=== PATIENT | male | born 1950 | race Caucasian/White ===

== ENCOUNTER 2016-12-01 21:07 | Emergency (ER) | payer MEDICARE ==
[~2016-12-01] VITALS: Ht 172.7 cm; Wt 71.7 kg
[~2016-12-01 21:07] MED LIST: AMITRIPTYLINE25 MG PO; B12,B-12,B 12500 MC1 PO; BACTROBAN OINT0.9 GM T; CARISOPRODOL350 M1 PO; CIPRO500 MG PO; CIPROFLOXACIN500 MG PO; COLACE100 MG PO; COUMADIN0.5 MG PO; COUMADIN1 M1 PO; COUMADIN3 M1 PO; COUMADIN4 M2 PO; COUMADIN5 M2 PO; Coumadin3 MG PO; Coumadin5 MG PO; DELTASONE10 MG PO; DITROPAN XL5 MG PO; DITROPAN5 MG PO; DOXYCYCLINE MO100 M1 PO; DOXYCYCLINE100 MG PO; DULCOLAX10 M1 RC; DUONEB 3 MG/3 ML3 M1 INH; DURAGESIC25 MCG/HR TD; ELAVIL25 MG PO; FLEET ADULT ENEM1 EA R; FLOMAX0.4 MG PO; HYDROCODONE BIT1 T11 PO; HYDROCODONE BIT1 T20 PO; IBU800 MG PO; LEVAQUIN500 M2 PO; LEVAQUIN750 M1 PO; LEVAQUIN750 MG PO; LOPRESSOR25 MG PO; LORCET 10/650 61 TA1 PO; MEGESTROL AC40 MG/ML PO; METICORTEN1 MG PO; METOPROLOL SUCC25 M2 PO; MOM30 M1 PO; MOTRIN800 MG PO; MUCINEX ER600 MG PO; NATURAL FOLIC0.4 MG PO; NATURE'S BLEND F1 MG OGT; NEURONTIN300 MG PO; NICODERM14 MG/24 H TD; NICOTINE T14 MG/24 H TD; NORCO 10-325 T1 EACH PO; NYSTATIN100000 U/M PO; OXYBUTYNIN5 MG PO; PERCOCET 325 MG1 TA2 PO; PERCOCET 325 MG1 TA5 PO; PREDNISONE10 MG PO; PYRIDIUM200 MG PO; SOMA350 MG PO; SSD1% T; SYMBICORT1 AE1 INH; TOPROL XL50 M1 PO; TYLENOL325 M1 PO; VALIUM PO; VALIUM10 MG PO; VALIUM5 MG PO; VENTOLIN0.09 MG/AC IH; VICODIN 5/500 505 MG PO; VICODIN ES 7501 TAB PO; XARE20MG PO; ZITHROMAX1 GM/PACKE PO; ZITHROMAX250 MG PO; ZOFRAN ODT4 MG SL; [UNRECOGNIZED DRUG - OTHER] PO
[2016-12-01 21:18] VITALS: BP 113/79
[2016-12-01] MEDS ORDERED: NOVAPLUS V0.09 MG/Ac INH (21:21)
[2016-12-01] MEDS ORDERED: ACETAMINOPHEN &1 TA1 PO (21:22)
[2016-12-01 21:58] LABS: BILIRUBIN NEGATIVE (NEGATIVE); BLOOD 3+ (NEGATIVE); CLARITY CLEAR (CLEAR); COLOR YELLOW (YELLOW); GLUCOSE NEGATIVE (NEGATIVE); KETONE NEGATIVE (NEGATIVE); LEUKO ESTERASE NEGATIVE (NEGATIVE); NITRITE NEGATIVE (NEGATIVE); PROTEIN TRACE (NEGATIVE); SPECIFIC GRAVITY <= 1.005 (1.005-1.030); UROBILINOGEN 0.2 E.U./dl (0.2-1.0)
[2016-12-01 22:08] LABS: BACTERIA TRACE; RBC TNTC rbc/hpf (0-2); URINE REFLEX COMMENT YES (NO)
[2016-12-01 22:12] LABS: BASO # 0.1 10*3/uL (0.0-0.1); BASO % 0.9 % (0.0-1.0); EOS # 0.4 10*3/uL (0.0-0.4); EOS % 4.7 % (1.0-4.0); HEMATOCRIT 39.3 % (42.0-52.0); HEMOGLOBIN 12.1 g/dl (14.0-18.0); LYMPH # 1.6 10*3/uL (1.3-4.4); LYMPH % 21.9 % (27.0-41.0); MEAN CELL VOLUME 95.6 fl (80.0-94.0); MEAN CORPUSCULAR HGB 29.4 pg (27.0-31.0); MEAN CORPUSCULAR HGB CONC 30.8 g/dl (33.0-37.0); MEAN PLATELET VOLUME 11.9 fl (9.6-12.3); MONO # 0.8 10*3/uL (0.1-1.0); MONO % 10.9 % (3.0-9.0); NEUT # 4.6 10*3/uL (2.3-7.9); NEUT % 61.5 % (47.0-73.0); PLATELET COUNT AUTOMATED 207 10*3/uL (130-400); RED BLOOD COUNT 4.11 10*6/uL (4.50-5.90); RED CELL DISTRI WIDTH 14.2 % (0-14.5); WHITE BLOOD COUNT 7.5 10*3/uL (4.8-10.8)
[2016-12-01 22:21] LABS: PROTHROMBIN TIME 46.9 SECONDS (9.0-12.4)
== END 2016-12-01 22:58 | disposition home or self-care (01) ==
LOC: ED 21:07
PROVIDERS: Emergency Medicine Emergency Medical Services
DX: R31.9 Hematuria, unspecified (principal); D68.8 Other specified coagulation defects; J44.9 Chronic obstructive pulmonary disease, unspecified; F17.200 Nicotine dependence, unspecified, uncomplicated; Z79.02 Long term (current) use of antithrombotics/antiplatelets; Z88.6 Allergy status to analgesic agent; Z79.899 Other long term (current) drug therapy; Z86.718 Personal history of other venous thrombosis and embolism; Z87.891 Personal history of nicotine dependence

== ENCOUNTER 2017-02-25 12:17 | Emergency (ER) | payer MEDICARE ==
[~2017-02-25] VITALS: Ht 172.7 cm; Wt 70.3 kg
[~2017-02-25 12:17] MED LIST changes: +ACETAMINOPHEN &1 TA1 PO; +NOVAPLUS V0.09 MG/Ac INH
[2017-02-25 12:21] VITALS: BP 134/73
[2017-02-25 13:00] LABS: BILIRUBIN NEGATIVE (NEGATIVE); BLOOD 1+ (NEGATIVE); CLARITY CLEAR (CLEAR); COLOR YELLOW (YELLOW); GLUCOSE NEGATIVE (NEGATIVE); KETONE NEGATIVE (NEGATIVE); LEUKO ESTERASE NEGATIVE (NEGATIVE); NITRITE NEGATIVE (NEGATIVE); PH 6.5 (5.0-9.0); SPECIFIC GRAVITY <= 1.005 (1.005-1.030)
[2017-02-25 13:06] LABS: BASO # 0.1 10*3/uL (0.0-0.1); BASO % 0.4 % (0.0-1.0); EOS # 0.1 10*3/uL (0.0-0.4); EOS % 1.2 % (1.0-4.0); HEMATOCRIT 38.5 % (42.0-52.0); HEMOGLOBIN 11.7 g/dl (14.0-18.0); LYMPH # 0.7 10*3/uL (1.3-4.4); LYMPH % 6.4 % (27.0-41.0); MEAN CORPUSCULAR HGB 30.1 pg (27.0-31.0); MEAN CORPUSCULAR HGB CONC 30.4 g/dl (33.0-37.0); MONO # 0.5 10*3/uL (0.1-1.0); MONO % 4.6 % (3.0-9.0); NEUT # 10.1 10*3/uL (2.3-7.9); NEUT % 87.1 % (47.0-73.0); PLATELET COUNT AUTOMATED 215 10*3/uL (130-400); RED BLOOD COUNT 3.89 10*6/uL (4.50-5.90); RED CELL DISTRI WIDTH 12.8 % (0-14.5); WHITE BLOOD COUNT 11.6 10*3/uL (4.8-10.8)
[2017-02-25 13:14] LABS: BACTERIA 1+; HYALINE CAST 20-30
[2017-02-25 13:20] LABS: ALBUMIN 2.9 gm/dl (3.1-4.5); ALKALINE PHOSPHATASE 138 U/L (45-117); BUN 9 mg/dl (7-24); CHLORIDE 95 mmol/L (98-107); CREATININE 0.61 mg/dL (0.70-1.30); POTASSIUM 3.8 mmol/L (3.5-5.1); SGOT/AST 15 IU/L (3-35); SGPT/ALT 14 U/L (12-78); SODIUM 138 mmol/L (136-145)
[2017-02-25] MEDS ORDERED: PREDNISONE20 M1 PO (14:30)
[2017-02-25] MEDS ORDERED: VIBRAMYCIN100 MG PO (14:30)
== END 2017-02-25 15:09 | disposition home or self-care (01) ==
LOC: ED 12:17
PROVIDERS: Emergency Medicine
DX: J44.1 Chronic obstructive pulmonary disease with (acute) exacerbation (principal); F17.200 Nicotine dependence, unspecified, uncomplicated; G89.29 Other chronic pain; Z86.718 Personal history of other venous thrombosis and embolism; Z99.81 Dependence on supplemental oxygen; Z87.01 Personal history of pneumonia (recurrent); Z98.890 Other specified postprocedural states; Z79.899 Other long term (current) drug therapy; Z79.01 Long term (current) use of anticoagulants; Z88.5 Allergy status to narcotic agent

== ENCOUNTER 2017-03-29 13:45 | Emergency (ER) | payer MEDICARE ==
[~2017-03-29] VITALS: Ht 172.7 cm; Wt 70.3 kg
[~2017-03-29 13:45] MED LIST changes: +PREDNISONE20 M1 PO; +VIBRAMYCIN100 MG PO
[2017-03-29 14:21] VITALS: BP 121/70
[2017-03-29] MEDS ORDERED: PREDNISONE20 M1 PO (14:51)
== END 2017-03-29 15:12 | disposition home or self-care (01) ==
LOC: ED 13:45
DX: L30.9 Dermatitis, unspecified (principal); Z87.891 Personal history of nicotine dependence; Z98.890 Other specified postprocedural states; Z79.01 Long term (current) use of anticoagulants; Z79.899 Other long term (current) drug therapy; Z88.5 Allergy status to narcotic agent; Z99.81 Dependence on supplemental oxygen

== ENCOUNTER 2017-04-06 19:00 | Inpatient (IN) | payer MEDICARE ==
[~2017-04-06] VITALS: Ht 172.7 cm; Wt 65.4 kg
--- NOTE | ~2017-04-06 | PR ---
[place], [place] PROGRESS NOTE NAME: LUAN PLATA [facility] #: [id number] UNIT #: [id number] ROOM: 410 DOCTOR: DOROTHY JENKINS MD,BABAR BIRTHDATE: [birth year] DOS: 04/08/2017 SUBJECTIVE: The patient was complaining of some shortness of breath today. He has been noted with cough with occasional sputum expectoration. There were no symptoms of chest pain. He has not been noted symptoms of hemoptysis. He has been using the oxygen supplementation nasal cannula. OBJECTIVE: VITAL SIGNS: For the patient which has been recorded. The patient shows the temperature noted normal, respirations 18, heart rate of 108-69, blood pressure 126/64-190/71. Pulse oxygen saturation recorded on 5 liter nasal cannula this morning was 91%. Previous noted 50% oxygen 97% saturation. HEENT: Examination shows head was atraumatic. Eyes nonicterus. NECK: Supple. CARDIOVASCULAR: S1, S2 audible. LUNGS: The patient was noted generally diminished breath sounds were noted, which has been noted in worsening as compared with the admission. Scattered expiratory wheezing was present. There were no crackles. ABDOMEN: Soft, nontender. EXTREMITIES: The patient was noted without any edema. LABORATORY DATA: The blood culture which are noted in the showed no bacterial growth. The PT/INR were noted 2.2, which is therapeutic. CMP this morning, glucose 157, BUN and creatinine were normal. CO2 33. CBC does count 21.8, hemoglobin 10.3, hematocrit 32.5, platelet count 164,000. IMPRESSION: 1. The patient with acute on chronic hypercapnic hypoxic respiratory failure with the increased requirement of the oxygen use. The patient has been started BiPAP last night as well for the medical management of current progressive acute respiratory failure. 2. Leukocytosis, steroid effect and rule out any superimposed infection. 3. The patient with overall debility was noted at present time. 4. History of common variable hypogammaglobulinemia. PLAN OF MANAGEMENT: The BiPAP setting will be adjusted to get the maximum ventilatory support. Arterial blood gas intermittently. Other supportive plan of therapy and care plan. Continue corticosteroids and the antibiotics. Further treatment changes. The patient will be made based on the progression of the illness. Change in the BiPAP has been made with a setting of 16/10. Close monitoring respiratory status will be continued. Additional treatment changes will be done in the treatment based on progression of the illness. Also get a chest x-ray of the patient to exclude any superimposed acute lung process because of leukocytosis. [place], [place] PROGRESS NOTE NAME: LUAN PLATA UNIT #: [id number] ROOM: [facility] DOCTOR: BABAR ALBA MD BIRTHDATE: [birth year] BABAR DE LA CRUZ MD CM:PNTRANS [id number] BABAR JENKINS MD 04/08/17 1432 interface
--- NOTE | ~2017-04-06 | CON ---
[place], [place] REPORT OF CONSULTATION NAME: LUAN PLATA UNIT #: [id number] ROOM: 410 DOCTOR: DOROTHY JENKINS MD,BABAR BIRTHDATE: [birth year] DOS: 04/07/2017 REASON FOR CONSULTATION: To assess the patient for increased respiratory symptoms as well as acute on chronic respiratory failure. CONSULTATION REQUESTED BY: Hospitalist services. HISTORY OF PRESENT ILLNESS: A 66-year-old male patient, very well known to me with history of end-stage COPD, chronic hypoxic respiratory failure. The patient has been brought to the hospital upon insistence of the patient's . The patient stated that he was not feeling sick, but the wanted him to come to the hospital. He has been noted with increased sleepiness, which has been noted for the past couple of days. The patient was sleeping most of the time as per spouse. He was also noted with decrease usual activities of daily living as well. The patient was noted with oxygen desaturation, which has been noted with difficulty, bringing oxygen saturation up to 92% with usual oxygen supplementation. The patient has been noted comfortably resting on the bed. REVIEW OF SYSTEMS: CONSTITUTIONAL: He does have some fatigue, but no symptoms of fever or chills. EYES: Denies any burning, discharge or redness, photophobia. CARDIOVASCULAR: Denies anginal pain, edema or pain of the lower extremity. GASTROINTESTINAL: Dysphagia, abnormal weight loss, nausea, vomiting, diarrhea, hematemesis, melena, or hematochezia. SKIN: Denies any lesions or rashes, chronic intermittent bruising of skin noted, which is unchanged. GENITOURINARY: Dysuria, suprapubic pain, or hematuria. MUSCULOSKELETAL: No acute joint pain, redness, or tenderness. CENTRAL NERVOUS SYSTEM: Dizziness, headache, diplopia, syncopal episodes. Remaining systems were reviewed with the patient, noted all negative. PAST MEDICAL HISTORY: 1. The patient known with history of advanced COPD/centrilobular emphysema. 2. History of generalized anxiety disorder. 3. Chronic hypercapnia. 4. Chronic hypoxic respiratory failure 4 liter of oxygen use. 5. Stable mediastinal lymphadenopathy. 6. Past history of epistaxis. 7. History of nephrolithiasis. 8. Chronic back pain. 9. Common variable hypogammaglobulinemia. 10. Pseudohemoptysis history. 11. Osteoarthritis. 12. Asbestos-related lung disease. 13. Chronic anticoagulation with history of deep venous thrombosis, lower extremities. 14. 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 [place], [place] REPORT OF CONSULTATION NAME: LUAN PLATA UNIT #: [id number] ROOM: 410 DOCTOR: DOROTHY JENKINS MD,BABAR BIRTHDATE: [birth year] PAST SURGICAL HISTORY: 1. Patient was known with history of right MediPort insertion. 2. Left chest tube insertion into the lung, which I removed. The patient after pneumothorax was attempted MediPort placement. 3. Therapeutic bronchoscopies. 4. Lithotripsy, ureteral calculus. 5. Past multiple broken bone and surgical intervention. 6. Abdominal aortic aneurysm repair with endovascular graft. SOCIAL HISTORY: The patient is and lives at home. Denies alcohol use or illicit drug use. Tobacco use noted since teenager, pack of cigarettes per day. Tobacco discontinued 03/05/2016. There was no history of occupation-related pulmonary exposure. FAMILY HISTORY: Noted unremarkable. MEDICATIONS: Currently administered medication were noted use of folic acid, vitamin D, amitriptyline, oxybutynin, metoprolol succinate, ibuprofen, Solu-Medrol 60 mg q.8 hours, Neurontin, Dulera, Coumadin, DuoNeb, IV immunoglobulins monthly basis last dose was given to the patient on 03/22/2017. Diazepam. Lorazepam rather temazepam p.r.n. and Levaquin 500 mg IV daily. DRUG ALLERGIES: THE PATIENT WAS NOTED ALLERGY TO CODEINE. PHYSICAL EXAMINATION: GENERAL: A 66-year-old male who has been comfortable, resting in the bed at this time without any distress. The patient's height recorded by the nursing staff 5 feet 8 inches, weight of 144 pounds, BMI 21.9. VITAL SIGNS: Normal temperature, respirations 18-20, heart rate 52-119, blood pressure 114/71-124/75. The pulse oxygen saturation on 6 liters canula 93% saturation, 50% Venturi mask 97% saturation. HEENT: No acute change. NECK: Supple. CARDIOVASCULAR: S1, S2 audible. LUNGS: Noted at this time. Moderate reduction in the breath sounds bilaterally. Scattered wheezing, no crackles. ABDOMEN: Soft, nontender, bowel sounds present. EXTREMITIES: The patient was noted without any edema, clubbing or cyanosis. Visible skin shows some bruising of the skin scattered for the patient related to previous medication without any abnormal rashes or lesions. CENTRAL NERVOUS SYSTEM: Cranial nerves 2-12 intact. No focal deficits. MUSCULOSKELETAL: No acute deformities. LABORATORY DATA: Lactic acid 0.9 on admission, CBC on admission of 04/02/2017 was essentially noted normal. PT/INR 1.6, subtherapeutic on admission 04/06/2017. BUN and creatinine noted normal on admission. CO2 39, mildly elevated ____ chronic metabolic alkalosis and hypercarbia. Arterial blood gas yesterday evening, pH of 7.37, pCO2 of 77, pO2 of 56. PT/INR today was noted 1.5, which is noted in the close range of low therapeutic range, but still noted [place], [place] REPORT OF CONSULTATION NAME: LUAN PLATA UNIT #: [id number] ROOM: [facility] DOCTOR: DOROTHY JENKINS MD,[facility] BIRTHDATE: [birth year] subtherapeutic. The CBC this morning, WBC count 15.3, hemoglobin 10.5, hematocrit 34.7, platelet count was normal. CMP this morning, normal BUN and creatinine. The chest x-ray, 2-view that was done for the patient was personally reviewed shows MediPort noted in place in the right chest. Severe changes of centrilobular emphysema was noted. Some area of scarring in the lower lung ____ maybe more pronounced because of the upper lobe emphysema. IMPRESSION: 1. The patient who has been currently admitted to the hospital, was noted with acute exacerbation of chronic obstructive pulmonary disease with history of chronic hypoxic and hypercapnic respiratory failure. 2. Moderate chronic metabolic alkalosis related to chronic hypercarbia well compensated pH. 3. The patient with a chronic anticoagulation, history of deep venous thrombosis. 4. History of current pneumonia. The patient pulmonary infection, which has markedly improved and did not require hospitalization for several months. Since the patient has been getting intravenous immunoglobulin supplementation monthly basis. 5. The patient with general anxiety disorder and other problems. PLAN OF MANAGEMENT: Sputum for Gram stain and culture. Antibiotics could be switched to oral if necessary. Reduce the dose of Solu-Medrol to the lower dose since the patient has been noted minimal wheezing at this time. Monitor respiratory status closely. All other supportive therapy, plan of management and care plan. Usual treatment with additional treatment changes will be ordered based on the progression of the illness. Supportive care. Thank you for allowing me to participate in the care of this patient. BABAR DE LA CRUZ MD CM:CONSTR:REPORT OF CONSULTATION 1243 04/07/17 1435 interface
--- NOTE | ~2017-04-06 | PR ---
[place], [place] PROGRESS NOTE NAME: LUAN PLATA UNIT #: [id number] ROOM: 410 DOCTOR: DOROTHY JENKINS MD,BABAR BIRTHDATE: [birth year] DOS: 04/09/2017 SUBJECTIVE: He has been doing well. Use of BiPAP was ordered yesterday as recommended. Denies symptoms of chest pain. The coughing has been noted minimal. The wheezing was improving. OBJECTIVE: VITAL SIGNS: For the patient which has been recorded showed normal temperature, respiratory rate 18, heart rate 79, blood pressure 140/90. Pulse oxygen saturation recorded as 97% on 6 liters nasal cannula. HEENT: Shows no acute change. NECK: Supple. CARDIOVASCULAR: S1, S2 audible. LUNGS: The patient was noted without any wheezing or crackles. ABDOMEN: Soft and nontender. IMPRESSION: 1. Resolving acute on chronic hypercapnia hypoxic respiratory failure with exacerbation of chronic obstructive pulmonary disease and acute bronchitis. 2. Metabolic alkalosis, chronic, secondary to hypercarbia. PLAN OF MANAGEMENT: Continuation of bronchodilators, oxygen supplementation and other therapy as in progress. Continue usual medical management and care plan. Supportive care. BABAR DE LA CRUZ MD CM:[place] [id number] BABAR JENKINS MD 04/09/17 1417 interface
--- NOTE | ~2017-04-06 | EKG ---
[place], [place] ELECTROCARDIOGRAM REPORT NAME: LUAN PLATA UNIT #: [id number] ROOM: 410 DOCTOR: DOROTHY JENKINS MD,BABAR BIRTHDATE: [birth year] DOS: 04/06/2017 TIME: 7:32 p.m. Normal sinus rhythm was noted with heart rate of 95 beats per minute. Right axis deviation was also noted with somewhat poor R-wave progression in V1 and V2. Nonspecific ST-T changes were also noted. Left atrial enlargement would be considered. BABAR DE LA CRUZ MD CM:EKGRPT:ELECTROCARDIOGRAM REPORT [id number] BABAR JENKINS MD
[2017-04-06 19:00] VITALS: BP 138/82
[2017-04-06 19:23] LABS: BASO % 0.2 % (0.0-1.0); EOS # 0.3 10*3/uL (0.0-0.4); EOS % 3.3 % (1.0-4.0); HEMATOCRIT 42.2 % (42.0-52.0); HEMOGLOBIN 12.8 g/dl (14.0-18.0); LYMPH # 1.1 10*3/uL (1.3-4.4); MEAN CELL VOLUME 103.4 fl (80.0-94.0); MEAN CORPUSCULAR HGB 31.4 pg (27.0-31.0); MEAN CORPUSCULAR HGB CONC 30.3 g/dl (33.0-37.0); MEAN PLATELET VOLUME 11.9 fl (9.6-12.3); MONO # 0.6 10*3/uL (0.1-1.0); NEUT # 7.1 10*3/uL (2.3-7.9); NEUT % 77.3 % (47.0-73.0); PLATELET COUNT AUTOMATED 173 10*3/uL (130-400); RED BLOOD COUNT 4.08 10*6/uL (4.50-5.90); RED CELL DISTRI WIDTH 13.5 % (0-14.5); WHITE BLOOD COUNT 9.2 10*3/uL (4.8-10.8)
[2017-04-06 19:36] LABS: INTERNATIONAL NORM RATIO 1.6 (2.0-3.5)
[2017-04-06 19:41] LABS: ALBUMIN 3.5 gm/dl (3.1-4.5); ALKALINE PHOSPHATASE 123 U/L (45-117); BUN 13 mg/dl (7-24); CHLORIDE 91 mmol/L (98-107); CREATININE 0.62 mg/dL (0.70-1.30); POTASSIUM 4.1 mmol/L (3.5-5.1); SGOT/AST 15 IU/L (3-35); SGPT/ALT 21 U/L (12-78); SODIUM 138 mmol/L (136-145); TOTAL PROTEIN 7.7 gm/dL (6.4-8.2)
[2017-04-06 19:42] LABS: TROPONIN I < 0.015 ng/ml (<0.045)
[2017-04-06 20:28] VITALS: BP 106/76
[2017-04-06 21:22] VITALS: BP 111/72
--- NOTE | 2017-04-06 22:03 | NUR ---
REPORT GIVEN TO JEREMY OBRIEN.
--- NOTE | 2017-04-06 22:07 | NUR ---
Called and notified Dr. Arias regarding critical Lactic Acid results. No new orders received at this time.
[2017-04-06 22:20] VITALS: BP 120/79
--- NOTE | 2017-04-06 22:20 | NUR ---
A 66YR OLD MALE,admitted to 4E,under the services of JESSICA Barahona DO with a diagnosis of COPD. Chief complaint is SOB X 2DAYS. Patient arrived via stretcher from ER. Monitor applied. Initial assessment completed. Vital signs taken and recorded. JESSICA BARAHONA DO notified of admission to the unit. Orders received. See assessment for past medical history, medications and allergies. Patient and/or family oriented to unit 4E. visitation policy reviewed. Clothing/patient valuable form completed. JEREMY TOMPKINS
[2017-04-06] MEDS ORDERED: IBUPROFEN600 MG PO (22:56)
[2017-04-06 23:17] LABS: ABG BASE EXCESS 15.5 mmol/L (-2.0-2.0); ABG O2 SATURATION 91.3 % (95-97); ARTERIAL BLOOD GAS PH 7.372 (7.35-7.45); ARTERIAL BLOOD GAS PO2 56.6 mmHg (80-90)
[2017-04-06 23:22] LABS: ARTERIAL BLOOD GAS PCO2 77.2 mmHg (35-45)
--- NOTE | 2017-04-06 23:22 | NUR ---
Called and notified Dr. Arias regarding critical pCO2 results. New orders were received.
--- NOTE | 2017-04-06 23:30 | NUR ---
ITALO ACCESSED AT THIS TIME PER ORDER OF DR. SANTIZO USING STERILE TECHNIQUE. PATIENT TOLERATED NOW. PATIENT TOLERATED WELL. BLOOD RETURN ACHIEBED. FLUSHED WITH NORMAL SALINE.
[2017-04-07] VITALS: BP 114/71
--- NOTE | 2017-04-07 00:56 | NUR ---
Called and notified Dr. Arias regarding critical Lactic Acid results. No new orders were received.
--- NOTE | 2017-04-07 01:01 | NUR ---
24 HR chart check completed.
--- NOTE | 2017-04-07 02:53 | NUR ---
Medicated with Restoril po prn for help with sleep. Will monitor effectiveness. Call light within reach.
[2017-04-07 03:48] LABS: MEAN CELL VOLUME 102.4 fl (80.0-94.0); MEAN CORPUSCULAR HGB CONC 30.3 g/dl (33.0-37.0); MEAN PLATELET VOLUME 12.5 fl (9.6-12.3); PLATELET COUNT AUTOMATED 168 10*3/uL (130-400); RED BLOOD COUNT 3.39 10*6/uL (4.50-5.90); RED CELL DISTRI WIDTH 13.7 % (0-14.5); WHITE BLOOD COUNT 15.3 10*3/uL (4.8-10.8)
--- NOTE | 2017-04-07 03:48 | NUR ---
Called and notified Dr. Arias regarding critical Lactic Acid results. No new orders were received at this time.
[2017-04-07 03:49] LABS: HEMATOCRIT 34.7 % (42.0-52.0); HEMOGLOBIN 10.5 g/dl (14.0-18.0)
--- NOTE | 2017-04-07 03:50 | NUR ---
Patient resting quietly in bed with eyes closed. Restoril effective. Will continue to monitor. Call light within reach.
[2017-04-07 03:53] LABS: INTERNATIONAL NORM RATIO 1.9 (2.0-3.5)
[2017-04-07 04:01] LABS: ALBUMIN 2.7 gm/dl (3.1-4.5); ALKALINE PHOSPHATASE 90 U/L (45-117); BUN 11 mg/dl (7-24); CHLORIDE 95 mmol/L (98-107); CHOLESTEROL 183 mg/dL (<200); HDL CHOLESTEROL 58 mg/dl (40-60); LDL CHOLESTEROL 109 mg/dL (9-159); PHOSPHOROUS 1.2 mg/dL (2.5-4.9); POTASSIUM 4.1 mmol/L (3.5-5.1); SGOT/AST 14 IU/L (3-35); SGPT/ALT 18 U/L (12-78); SODIUM 139 mmol/L (136-145); TOTAL PROTEIN 6.1 gm/dL (6.4-8.2); TRIGLYCERIDES 82 mg/dl (<150); VLDL CHOLESTEROL 16 mg/dL (6-40)
[2017-04-07 04:03] LABS: PLATELET SUFFICIENCY NORMAL (NORMAL); POLYCHROMASIA SLIGHT; TOTAL CELLS COUNTED 100 #CELLS
[2017-04-07 04:07] LABS: THYROID STIM HORMONE (HS) 0.327 uIU/ml (0.358-4.75)
--- NOTE | 2017-04-07 06:24 | NUR ---
Called and notified Dr. Castillo regarding consult. He said "OK". No new orders were received at this time.
[2017-04-07 07:05] LABS: VITAMIN D, 25-HYDROXY 19.1 ng/mL (30-100)
[2017-04-07 08:00] VITALS: BP 117/77
--- NOTE | 2017-04-07 09:00 | NUR ---
[place] Former Machine Operator in to talk to patient. Patient states lives at home with . There are few steps in the home. Physician: jarrett milligan [facility]acy: [facility] Home health services: none Patient's level of ADLs: MINIMAL ASSIST Patient has working utilities: all working DME: home oxygen, nebulizer, walker Follow-up physician's appointment after d/c: will be made by hospitalist nurse director upon discharge Does patient want to access PORTAL?: no Discharge plan discussed with patient, patient lives at home with , he has home oxygen, nebulizer and walker, patient states he will be going home when able and denies any home needs. AUDREY FRAIRE
[2017-04-07 12:00] VITALS: BP 124/75
[2017-04-07 16:00] VITALS: BP 110/68
--- NOTE | 2017-04-07 17:06 | NUR ---
MOTRIN GIVEN AT THIS TIME FOR COMPLAINTS OF PAIN IN HIS BACK AND LEGS. WILL MONITOR FOR EFFECTIVENESS.
--- NOTE | 2017-04-07 18:03 | NUR ---
patient resting, motrin effective.
[2017-04-07 20:00] VITALS: BP 120/66
[2017-04-08] VITALS: BP 109/71
[2017-04-08 08:00] VITALS: BP 126/64
[2017-04-08 09:12] LABS: HEMATOCRIT 32.5 % (42.0-52.0); HEMOGLOBIN 10.3 g/dl (14.0-18.0); MEAN CELL VOLUME 99.4 fl (80.0-94.0); MEAN CORPUSCULAR HGB 31.5 pg (27.0-31.0); MEAN CORPUSCULAR HGB CONC 31.7 g/dl (33.0-37.0); MEAN PLATELET VOLUME 12.4 fl (9.6-12.3); PLATELET COUNT AUTOMATED 164 10*3/uL (130-400); RED BLOOD COUNT 3.27 10*6/uL (4.50-5.90); RED CELL DISTRI WIDTH 14.6 % (0-14.5); WHITE BLOOD COUNT 21.8 10*3/uL (4.8-10.8)
[2017-04-08 09:32] LABS: TOTAL CELLS COUNTED 100 #CELLS
[2017-04-08 09:33] LABS: PLATELET SUFFICIENCY NORMAL (NORMAL)
[2017-04-08 09:35] LABS: ALBUMIN 2.7 gm/dl (3.1-4.5); ALKALINE PHOSPHATASE 87 U/L (45-117); BUN 8 mg/dl (7-24); CHLORIDE 101 mmol/L (98-107); CREATININE 0.66 mg/dL (0.70-1.30); INTERNATIONAL NORM RATIO 2.2 (2.0-3.5); SGOT/AST 10 IU/L (3-35); SGPT/ALT 18 U/L (12-78); SODIUM 139 mmol/L (136-145); TOTAL PROTEIN 6.5 gm/dL (6.4-8.2)
[2017-04-08 12:00] VITALS: BP 119/67
[2017-04-08 12:51] LABS: ABG BASE EXCESS 5.1 mmol/L (-2.0-2.0); ABG HCO3 31.9 mmol/l (22-26); ABG O2 SATURATION 94.4 % (95-97); ARTERIAL BLOOD GAS PCO2 62.4 mmHg (35-45); ARTERIAL BLOOD GAS PH 7.328 (7.35-7.45); ARTERIAL BLOOD GAS PO2 72.7 mmHg (80-90)
[2017-04-08 16:00] VITALS: BP 135/80
[2017-04-08 20:00] VITALS: BP 137/80
[2017-04-09] VITALS: BP 130/75
[2017-04-09 06:08] LABS: BASO % 0.1 % (0.0-1.0); EOS % 0.1 % (1.0-4.0); HEMATOCRIT 32.1 % (42.0-52.0); HEMOGLOBIN 10.1 g/dl (14.0-18.0); LYMPH # 1.1 10*3/uL (1.3-4.4); LYMPH % 6.1 % (27.0-41.0); MEAN CELL VOLUME 98.8 fl (80.0-94.0); MEAN CORPUSCULAR HGB 31.1 pg (27.0-31.0); MEAN CORPUSCULAR HGB CONC 31.5 g/dl (33.0-37.0); MEAN PLATELET VOLUME 12.2 fl (9.6-12.3); MONO # 1.4 10*3/uL (0.1-1.0); MONO % 7.5 % (3.0-9.0); NEUT # 15.9 10*3/uL (2.3-7.9); NEUT % 85.2 % (47.0-73.0); PLATELET COUNT AUTOMATED 190 10*3/uL (130-400); RED BLOOD COUNT 3.25 10*6/uL (4.50-5.90); RED CELL DISTRI WIDTH 14.7 % (0-14.5); WHITE BLOOD COUNT 18.6 10*3/uL (4.8-10.8)
[2017-04-09 06:40] LABS: ALBUMIN 2.5 gm/dl (3.1-4.5); ALKALINE PHOSPHATASE 80 U/L (45-117); BUN 12 mg/dl (7-24); CHLORIDE 100 mmol/L (98-107); CREATININE 0.57 mg/dL (0.70-1.30); POTASSIUM 4.1 mmol/L (3.5-5.1); SGOT/AST 11 IU/L (3-35); SGPT/ALT 15 U/L (12-78); SODIUM 139 mmol/L (136-145); TOTAL PROTEIN 6.6 gm/dL (6.4-8.2)
[2017-04-09 08:00] VITALS: BP 140/90
[2017-04-09] MEDS ORDERED: LEVAQUIN750 M1 PO (11:11)
[2017-04-09] MEDS ORDERED: PREDNISONE10 MG PO (11:11)
--- NOTE | 2017-04-09 11:19 | NUR ---
PT LEFT AMA, DISCUSSED WITH PT RISK, NOTIFIED.
== END 2017-04-09 11:38 | disposition left against medical advice (07) | DRG 871 ==
LOC: ED 19:00 → 4E 21:23 → EDHOLD 21:23 → 4E 21:30
PROVIDERS: Emergency Medicine; Family Medicine; Registered Nurse; ADMIT Internal Medicine
PROC: 5A09357 Assistance with Respiratory Ventilation, Less than 24 Consecutive Hours, Continuous Positive Airway Pressure (ICD-10-PCS; principal; 2017-04-07)
PROC: 5A09357 Assistance with Respiratory Ventilation, Less than 24 Consecutive Hours, Continuous Positive Airway Pressure (ICD-10-PCS; 2017-04-08)
DX: A41.9 Sepsis, unspecified organism (principal); E43 Unspecified severe protein-calorie malnutrition; J96.21 Acute and chronic respiratory failure with hypoxia; Z99.81 Dependence on supplemental oxygen; J18.9 Pneumonia, unspecified organism; E87.3 Alkalosis; J96.22 Acute and chronic respiratory failure with hypercapnia; I82.509 Chronic embolism and thrombosis of unspecified deep veins of unspecified lower extremity; J44.1 Chronic obstructive pulmonary disease with (acute) exacerbation; J44.0 Chronic obstructive pulmonary disease with (acute) lower respiratory infection; F20.0 Paranoid schizophrenia; R65.20 Severe sepsis without septic shock; D53.9 Nutritional anemia, unspecified; R74.8 Abnormal levels of other serum enzymes; Z53.21 Procedure and treatment not carried out due to patient leaving prior to being seen by health care provider; G89.29 Other chronic pain; M54.9 Dorsalgia, unspecified; F32.9 Major depressive disorder, single episode, unspecified; J20.9 Acute bronchitis, unspecified; T38.0X5A Adverse effect of glucocorticoids and synthetic analogues, initial encounter; F41.1 Generalized anxiety disorder; M19.90 Unspecified osteoarthritis, unspecified site; Z88.6 Allergy status to analgesic agent; Z79.899 Other long term (current) drug therapy; Z79.01 Long term (current) use of anticoagulants; Z87.01 Personal history of pneumonia (recurrent); Z87.891 Personal history of nicotine dependence; Z82.49 Family history of ischemic heart disease and other diseases of the circulatory system; Y92.89 Other specified places as the place of occurrence of the external cause; Z87.442 Personal history of urinary calculi; Z68.21 Body mass index [BMI] 21.0-21.9, adult

== ENCOUNTER 2017-05-06 14:08 | Inpatient (IN) | payer MEDICARE ==
[~2017-05-06] VITALS: Ht 172.7 cm; Wt 65.5 kg
--- NOTE | ~2017-05-06 | PR ---
[place], [place] PROGRESS NOTE NAME: LUAN PLATA UNIT #: [id number] ROOM: 504 DOCTOR: BABAR ALBA MD BIRTHDATE: [birth year] DOS: 05/09/2017 SUBJECTIVE: The patient has been noted comfortable at this time. Continues to show reduction and improvement of the respiratory symptoms, shortness of breath, coughing. Denies any wheezing. There were no symptoms of chest pain. OBJECTIVE: VITAL SIGNS: Recorded showed normal temperature, respiratory rate 18, heart rate 88, blood pressure 121/69, pulse ox saturation 4 liter nasal cannula 93% saturation. HEENT: Examination shows no acute change. NECK: Supple. CARDIOVASCULAR: S1, S2 is audible. LUNGS: The patient was noted with moderate decreased breath sounds in the lungs bilaterally. There were no crackles. ABDOMEN: Soft, nontender. EXTREMITIES: The patient was noted without any acute edema. SKIN: Visible skin shows scattered bruising of skin which is chronic. LABORATORY DATA: BUN and creatinine was noted as normal. The CO2 was 34. CBC: WBC count 11.1, hemoglobin 10.7, hematocrit 33.2, platelet count was normal. PT/INR was noted at 1.0, subtherapeutic. IMPRESSION: The patient with resolving acute chronic severe hypercapnic and hypoxic respiratory failure. Gradual improvement and acute exacerbation of chronic obstructive pulmonary disease was also noted. Overall debility. Resolution of the Coumadin toxicity, currently noted. INR subtherapeutic. PLAN OF MANAGEMENT: No changes from the pulmonary standpoint at this time. The noninvasive ventilator, the patient order has already been made for this patient and awaiting the paperwork and the patient authorization from the insurance. In the meantime, continuation of the current plan of treatment for this patient as well. Usual care. Supportive care. [place], [place] PROGRESS NOTE NAME: LUAN PLATA UNIT #: [id number] ROOM: 504 DOCTOR: BABAR ALBA MD BIRTHDATE: [birth year] BABAR DE LA CRUZ MD CM:PNTRANS [id number] BABAR JENKINS MD 05/10/17 0349 interface
--- NOTE | ~2017-05-06 | PR ---
[place], [place] PROGRESS NOTE NAME: LUAN PLATA UNIT #: [id number] ROOM: 504 DOCTOR: BABAR ALBA MD BIRTHDATE: [birth year] DOS: 05/10/2017 SUBJECTIVE: The patient was independently seen and examined with [id number] encounter today. Assessment completed. Physical examination was performed. The labs were reviewed. Assessment and management for the patient personally completed for today's visit. Note done by the medical transcription editor, was approved. The patient has been showing continued gradual reduction and improvement in respiratory symptom insisting of being discharged home today. Stated that he will go for lung transplant as well. He does have $20,000, which he will use for the lung transplant. The patient has ____ been noted symptoms of chest pain at this time. PHYSICAL EXAMINATION: VITAL SIGNS: Reviewed were noted essentially normal except mild sinus tachycardia 105 beats per minute previously and noted normal this morning. Pulse oxygen 95% saturation noted on 4 liter nasal cannula. CHEST: Without any wheezing or crackles at this time. ABDOMEN: Soft, nontender. EXTREMITIES: Without any edema. LABORATORY DATA: BMP today noted as normal BUN and creatinine, CO2 35. CBC: Hemoglobin 10.9, hematocrit 34.1, platelet count was normal. IMPRESSION: 1. The patient gradual and progressive resolution of acute severe hypercapnic and hypoxic respiratory failure at this time. The baseline oxygen requirement. 2. The patient ____ significant debility as well. 3. Past history of nicotine abuse. 4. Common variable hypogammaglobulinemia. PLAN OF MANAGEMENT: From the pulmonary standpoint, if all the arrangement could be made including the arrangement for the noninvasive ventilator. Certainly he could be planned for home discharge on tapering prednisone and the other medications. The patient has signed against medical advice in the past and I am not sure if he will do the same thing today as well. [place], [place] PROGRESS NOTE NAME: LUAN PLATA UNIT #: [id number] ROOM: 504 DOCTOR: BABAR ALBA MD BIRTHDATE: [birth year] BABAR DE LA CRUZ MD CM:PNTRANS [id number] BABAR JENKINS MD 05/10/172038 interface
--- NOTE | ~2017-05-06 | EKG ---
[place], [place] ELECTROCARDIOGRAM REPORT NAME: LUAN PLATA UNIT #: [id number] ROOM: 504 DOCTOR: DOROTHY JENKINS MD,BABAR BIRTHDATE: [birth year] DOS: 05/06/2017 TIME: Done at 2:41 p.m. Sinus rhythm noted, 96 beats per minute with right ventricular hypertrophy. BABAR DE LA CRUZ MD CM:EKGRPT:ELECTROCARDIOGRAM REPORT [id number] BABAR JENKINS MD
--- NOTE | ~2017-05-06 | PR ---
[place], [place] PROGRESS NOTE NAME: LUAN PLATA UNIT #: [id number] ROOM: 504 DOCTOR: DOROTHY JENKINS MD,BABAR BIRTHDATE: [birth year] DOS: 05/08/2017 SUBJECTIVE: The patient was noted comfortable at this time without any acute distress, comfortably resting, using oxygen supplementation cannula, used the BiPAP last night. The patient has not been noted symptoms of chest pain or hemoptysis. OBJECTIVE: VITAL SIGNS: For the patient which were recorded showed normal temperature, respiratory rate of 17-20, heart rate of 103-104. Blood pressure 154/86 and 134/73. Pulse oxygen saturation of the patient recorded at this time as 94% saturation on 4 liters nasal cannula. HEENT: Showed no new change. NECK: Supple. CARDIOVASCULAR: S1, S2 is audible. LUNGS: The patient was noted without any wheezing or crackles at present time. The breaths are noted mildly decreased bilaterally. ABDOMEN: Soft, nontender. EXTREMITIES: Without any edema. VISIBLE SKIN: No lesions or rashes. MUSCULOSKELETAL: No deformities. GENITOURINARY: Intact. LABORATORY DATA: Blood culture from the 12th of this month showed no bacterial growth. CMP of the patient that was done on 05/08/2017, glucose 141, BUN and creatinine normal. CO2 was elevated at 35. The PT/INR were noted at 1.2 at the present time. CBC: WBC count normal, platelet count was normal, hemoglobin 10, and hematocrit 31.8. IMPRESSION: 1. The patient will be currently noted with gradual resolution of acute on chronic severe hypercapnic and hypoxic respiratory failure. 2. Change in mental status, resolved ____ hypercarbia and improvement and acute resolution of the Coumadin toxicity. 3. Anemia noted stable. 4. Metabolic alkalosis secondary to chronic hypercarbia. PLAN OF TREATMENT: The patient will benefit for noninvasive home ventilator administration in the home setting to prevent the recurrent exacerbation of chronic obstructive pulmonary disease as well as improve his respiratory failure and overall general health. All other supportive therapy, plan of management continued as previously. Usual care. Supportive plan of therapy and care. Additional treatment changes need to be made for the patient based on progression of his illness. All other plan of management for therapy as well. family services specialist and respiratory therapist will be requested about range of the noninvasive ventilator for the home settings. [place], [place] PROGRESS NOTE NAME: LUAN PLATA UNIT #: [id number] ROOM: 504 DOCTOR: DOROTHY JENKINS MD,BABAR BIRTHDATE: [birth year] BABAR DE LA CRUZ MD CM:PNTRANS [id number] BABAR JENKINS MD 05/08/171657 interface
--- NOTE | ~2017-05-06 | CON ---
[place], [place] REPORT OF CONSULTATION NAME: LUAN PLATA UNIT #: [id number] ROOM: 504 DOCTOR: DOROTHY JENKINS MDBABAR BIRTHDATE: [birth year] DOS: 05/07/2017 PULMONARY CONSULTATION, EVALUATION, AND MANAGEMENT CONSULTATION REQUESTED BY: Hospitalist Service. REASON FOR CONSULTATION: For assessment of current respiratory failure. HISTORY OF PRESENT ILLNESS: A 66-year-old white male, well known to me from the past. The patient had been admitted to the hospital previously in March 2017. The patient discharged against medical advice on 03/30/2017, when he was noted persistently ill. The patient came back to the hospital. The patient is currently admitted to the hospital. The patient has been noted with increased confusional status. He was also noted with symptoms of shortness of breath as well. Delirium was ongoing as per family member for the past couple of days. The patient has been brought to the hospital for further assessment. He was also noted significant forgetfulness as well. The patient has been known with symptoms of fever and chills, headache, sweating, increased shortness of breath, coughing with brown sputum expectoration and wheezing reported as well. He has been in the hospital. The arterial blood gas was done for the patient, shows evidence of severe acute hypercapnic respiratory failure with hypoxic respiratory failure. The patient is currently noted comfortable this morning. The confusion has been noted significantly decreased. The patient was started on BiPAP from admission yesterday. He denies symptoms of chest pain or hemoptysis. Shortness of breath and wheezing have been noted decreased. REVIEW OF SYSTEMS: CONSTITUTIONAL: Significant fatigue was reported. He does report symptoms of fever and chills previously, but not present at this time. EYES: Denied burning, redness, tenderness or diplopia. CARDIOVASCULAR: Denies any pain of the lower extremities, edema, anginal pain or palpitation. GASTROINTESTINAL: Denies dysphagia, nausea, vomiting, diarrhea, abdominal pain, hematemesis, melena or hematochezia. SKIN: Denies lesions or rashes. MUSCULOSKELETAL: No deformities. CENTRAL NERVOUS SYSTEM: No dizziness, headache, diplopia or syncopal episode. Remaining systems were reviewed, they were noted all negative. PAST MEDICAL HISTORY: Reviewed for patient from the consultation of 04/07/2017. SURGICAL HISTORY, SOCIAL HISTORY AND FAMILY HISTORY: All reviewed for the patient and remains unchanged from the consultation of 04/07/2017. Refer to that consultation for any details of the patient as needed, which is present in the Cycle Document in his medical records. MEDICATIONS: Medication administered were noted as use of doxepin, oxybutynin chloride, metoprolol succinate, amitriptyline, Neurontin, Solu-Medrol 40 mg q. 8 hours, Dulera, ibuprofen, DuoNeb, Levaquin, diazepam and other p.r.n. [place], [place] REPORT OF CONSULTATION NAME: LUAN PLATA UNIT #: [id number] ROOM: [facility] DOCTOR: DOROTHY JENKINS MD,BABAR BIRTHDATE: [birth year] medications administration. DRUG ALLERGIES: NOTED ALLERGY TO CODEINE. PHYSICAL EXAMINATION: GENERAL: A 66-year-old male who has been noted currently awake and alert. Height of 5 feet 8 inches, weight 144 pounds, BMI 21.9. VITAL SIGNS: Otherwise shows temperature noted at 99 as the highest temperature for the patient since admission, respiratory rate recorded at 18-20, heart rate 71-104, blood pressure 114/57-116/65, pulse oxygen saturation on 6 liters nasal cannula noted as 96% saturation. HEENT: Head was atraumatic. Eyes nonicterus. NECK: Supple. Oral mucosa moist. CARDIOVASCULAR: S1, S2 audible. LUNGS: Noted with general reduction in breath sounds and expiratory wheezing bilaterally. There were no crackles. ABDOMEN: nontender. EXTREMITIES: The patient was noted without any edema, clubbing or cyanosis. CENTRAL NERVOUS SYSTEM: Noted cranial nerves 2-12 intact. No focal deficit. MUSCULOSKELETAL: No deformities. SKIN: Noted without any lesions or rashes. LABORATORY DATA: Lactic acid 1.1 yesterday. CBC yesterday on admission: Normal CBC except mild anemia, hemoglobin 10.8, hematocrit 35.5. PT/PTT yesterday noted with INR elevated at 3.9, PTT normal. CMP of the patient yesterday on admission: BUN normal, creatinine was normal. CO2 39. Influenza A and B nasal washing antigen negative. The patient just had a rapid antigen testing. Troponin 3 sets yesterday noted all normal. PT/INR this morning 4.0, which is abnormal. CBC today: WBC count 5.0, hemoglobin and hematocrit for the patient remain the same as previously, platelet count normal as well. CMP this morning: BUN and creatinine normal. CO2 36. Remaining electrolytes are grossly normal. Arterial blood gas that was done yesterday for the patient in the Emergency Room: pH of 7.26 pCO2 92.6, pO2 155. Arterial blood gas that was done yesterday afternoon for the patient: pH of 7.43, pCO2 54, pO2 64 on 4 liter nasal cannula. One view chest x-ray that was taken for the patient in the Emergency Room was assessed personally from the PACS images: No acute pulmonary infiltration. Chronic fibrotic changes noted in the lungs. IMPRESSION: 1. The patient will be currently admitted to the hospital with acute on chronic severe hypercapnic respiratory failure, result of acute exacerbation of chronic obstructive pulmonary disease. 2. Metabolic alkalosis, stable, secondary to chronic hypercarbia. 3. History of recurrent pneumonia in the past which has improved significantly after the patient was getting immunoglobulin supplementation. 4. History of partial noncompliance with treatment as well. 5. Mild Coumadin toxicity without any active bleeding. 6. Anemia of chronic disease, remains stable. PLAN OF TREATMENT: Continue the BiPAP on the patient at nighttime, p.r.n. [place], [place] REPORT OF CONSULTATION NAME: LUAN PLATA UNIT #: [id number] ROOM: [facility] DOCTOR: DOROTHY JENKINS MD,BABAR BIRTHDATE: [birth year] during daytime to manage his hypercarbia. The patient is agreeable to use the BiPAP. Solu-Medrol will be continued same dose. Antibiotic will be continued same dose. Adjustment of the Coumadin to prevent major toxicity with issues. The patient has been using Coumadin for the chronic hypercoagulable status and past deep venous thrombosis. Other supportive therapy, plan of management and care. BABAR DE LA CRUZ MD CM:CONSTR:REPORT OF CONSULTATION 1804 05/08/17 0211 interface
--- NOTE | ~2017-05-06 | PR ---
[place], [place] PROGRESS NOTE NAME: LUAN PLATA UNIT #: [id number] ROOM: 504 DOCTOR: MERISSA LEMUS DO BIRTHDATE: [birth year] DOS: 05/10/2017 SUBJECTIVE: The patient is seen and examined at bedside. The patient is sitting in a chair at the bedside, in no acute distress. The patient is tolerating oxygen supplementation via nasal cannula well with no acute shortness of breath. The patient has no new complaints at this time. The patient is waiting for at a BiPAP machine to become available, so he will be discharged home with the appropriate equipment at home for his oxygen supplementation needs. OBJECTIVE: VITAL SIGNS: Temperature is 98.0, pulse is 104, respirations 18, blood pressure 135/86, pulse ox is 95% on 4 liters nasal cannula. GENERAL: The patient is alert and oriented x 3, in no acute distress. HEENT: Eyes are clear. No injection. Nares are patent. Mucous membranes are moist. NECK: Supple, nontender. LUNGS: Clear to auscultation bilaterally, with no wheezes, rales or rhonchi. CARDIOVASCULAR: Regular rate and rhythm. No murmurs, gallops or rubs. ABDOMEN: Soft, nontender, positive bowel sounds. EXTREMITIES: No Edema, erythema, cyanosis or clubbing. MUSCULOSKELETAL: No musculoskeletal deformity. NEUROLOGIC: Negative focal deficits. LABORATORY DATA: White count 10.7, hemoglobin 10.9, hematocrit 34.1, platelet count 204. Chemistries were normal except for mildly elevated carbon dioxide is 35, glucose is 111, calcium 9.6. AST and ALT were normal, albumin 2.7, total protein 6.6. Coag profile was negative. Blood cultures remain negative. Flu culture was negative. IMPRESSION AND PLAN: 1. Resolving acute on chronic obstructive pulmonary disease with severe hypercapnia and hypoxia. 2. Debility. 3. Coumadin toxicity, resolved. PLAN OF CARE: Awaiting for medical equipment for the patient to be discharged for his BiPAP at home. The patient is clinically stable for discharge from a pulmonary standpoint. We will continue to follow. MERISSA LEMUS DO [place], [place] PROGRESS NOTE NAME: LUAN PLATA UNIT #: [id number] ROOM: 504 DOCTOR: MERISSA LEMUS DO BIRTHDATE: [birth year] BABAR DE LA CRUZ MD CM:CALIXTO [id number] MERISSA LEMUS DO 05/11/17 0353 interface
[~2017-05-06 14:08] MED LIST changes: +IBUPROFEN600 MG PO
[2017-05-06 14:14] VITALS: BP 122/78
[2017-05-06 15:08] LABS: BASO % 0.2 % (0.0-1.0); EOS % 0.3 % (1.0-4.0); HEMATOCRIT 35.4 % (42.0-52.0); HEMOGLOBIN 10.8 g/dl (14.0-18.0); LYMPH # 0.3 10*3/uL (1.3-4.4); LYMPH % 3.8 % (27.0-41.0); MEAN CELL VOLUME 101.7 fl (80.0-94.0); MEAN CORPUSCULAR HGB CONC 30.5 g/dl (33.0-37.0); MEAN PLATELET VOLUME 11.4 fl (9.6-12.3); MONO # 0.6 10*3/uL (0.1-1.0); MONO % 6.6 % (3.0-9.0); NEUT # 7.7 10*3/uL (2.3-7.9); NEUT % 88.9 % (47.0-73.0); PLATELET COUNT AUTOMATED 138 10*3/uL (130-400); RED BLOOD COUNT 3.48 10*6/uL (4.50-5.90); RED CELL DISTRI WIDTH 13.1 % (0-14.5); WHITE BLOOD COUNT 8.7 10*3/uL (4.8-10.8)
[2017-05-06 15:18] LABS: ACT PARTIAL THROMBO TIME 37.3 SECONDS (20.8-31.5); INTERNATIONAL NORM RATIO 3.9 (2.0-3.5)
[2017-05-06 15:25] LABS: ALBUMIN 2.9 gm/dl (3.1-4.5); ALKALINE PHOSPHATASE 122 U/L (45-117); BUN 8 mg/dl (7-24); CHLORIDE 96 mmol/L (98-107); CREATININE 0.61 mg/dL (0.70-1.30); SGOT/AST 12 IU/L (3-35); SGPT/ALT 13 U/L (12-78); SODIUM 138 mmol/L (136-145); TOTAL PROTEIN 7.2 gm/dL (6.4-8.2)
[2017-05-06 15:26] LABS: TROPONIN I < 0.015 ng/ml (<0.045)
[2017-05-06 16:10] VITALS: BP 128/72
[2017-05-06 16:52] LABS: ABG HCO3 40.4 mmol/l (22-26); ABG O2 SATURATION 98.8 % (95-97); ARTERIAL BLOOD GAS PH 7.262 (7.35-7.45)
[2017-05-06 16:56] LABS: ARTERIAL BLOOD GAS PCO2 92.6 mmHg (35-45)
[2017-05-06 17:00] VITALS: BP 131/74
[2017-05-06 17:18] VITALS: BP 142/76
[2017-05-06] MEDS ORDERED: DOXEPIN25 MG PO (18:30)
[2017-05-06 20:00] VITALS: BP 116/65; BP 135/7
[2017-05-07] VITALS: BP 131/76
[2017-05-07 06:49] LABS: BASO % 0.2 % (0.0-1.0); HEMATOCRIT 33.1 % (42.0-52.0); LYMPH # 0.4 10*3/uL (1.3-4.4); LYMPH % 7.6 % (27.0-41.0); MEAN CELL VOLUME 100.6 fl (80.0-94.0); MEAN CORPUSCULAR HGB 30.4 pg (27.0-31.0); MEAN CORPUSCULAR HGB CONC 30.2 g/dl (33.0-37.0); MEAN PLATELET VOLUME 12.2 fl (9.6-12.3); MONO # 0.2 10*3/uL (0.1-1.0); NEUT # 4.4 10*3/uL (2.3-7.9); PLATELET COUNT AUTOMATED 160 10*3/uL (130-400); RED BLOOD COUNT 3.29 10*6/uL (4.50-5.90); RED CELL DISTRI WIDTH 13.2 % (0-14.5)
[2017-05-07 07:29] LABS: CHLORIDE 96 mmol/L (98-107); POTASSIUM 3.7 mmol/L (3.5-5.1); SODIUM 140 mmol/L (136-145)
[2017-05-07 07:34] LABS: ALBUMIN 2.6 gm/dl (3.1-4.5); ALKALINE PHOSPHATASE 107 U/L (45-117); BUN 10 mg/dl (7-24); PHOSPHOROUS 2.1 mg/dL (2.5-4.9); SGOT/AST 10 IU/L (3-35); SGPT/ALT 15 U/L (12-78); TOTAL PROTEIN 6.6 gm/dL (6.4-8.2)
[2017-05-07 07:38] VITALS: BP 113/65
[2017-05-07 07:43] LABS: VITAMIN D, 25-HYDROXY 17.5 ng/mL (30-100)
[2017-05-07 11:36] VITALS: BP 127/83
[2017-05-07 12:48] LABS: ABG BASE EXCESS 9.9 mmol/L (-2.0-2.0); ABG HCO3 35.4 mmol/l (22-26); ABG O2 SATURATION 93.6 % (95-97); ARTERIAL BLOOD GAS PCO2 54.1 mmHg (35-45); ARTERIAL BLOOD GAS PH 7.431 (7.35-7.45); ARTERIAL BLOOD GAS PO2 64.4 mmHg (80-90)
[2017-05-07 15:39] VITALS: BP 114/57
[2017-05-07 20:00] VITALS: BP 145/76
[2017-05-08] VITALS: BP 142/74
[2017-05-08 05:57] LABS: HEMATOCRIT 31.8 % (42.0-52.0); LYMPH # 0.6 10*3/uL (1.3-4.4); LYMPH % 6.4 % (27.0-41.0); MEAN CORPUSCULAR HGB 30.5 pg (27.0-31.0); MEAN CORPUSCULAR HGB CONC 31.4 g/dl (33.0-37.0); MEAN PLATELET VOLUME 12.4 fl (9.6-12.3); MONO # 0.5 10*3/uL (0.1-1.0); MONO % 5.8 % (3.0-9.0); NEUT # 7.6 10*3/uL (2.3-7.9); NEUT % 87.6 % (47.0-73.0); PLATELET COUNT AUTOMATED 159 10*3/uL (130-400); RED BLOOD COUNT 3.28 10*6/uL (4.50-5.90); RED CELL DISTRI WIDTH 13.8 % (0-14.5); WHITE BLOOD COUNT 8.6 10*3/uL (4.8-10.8)
[2017-05-08 06:09] LABS: INTERNATIONAL NORM RATIO 1.2 (2.0-3.5)
[2017-05-08 06:12] LABS: ALBUMIN 2.8 gm/dl (3.1-4.5); ALKALINE PHOSPHATASE 96 U/L (45-117); BUN 13 mg/dl (7-24); CHLORIDE 99 mmol/L (98-107); CREATININE 0.69 mg/dL (0.70-1.30); POTASSIUM 3.8 mmol/L (3.5-5.1); SGOT/AST 13 IU/L (3-35); SGPT/ALT 13 U/L (12-78); SODIUM 140 mmol/L (136-145); TOTAL PROTEIN 6.8 gm/dL (6.4-8.2)
[2017-05-08 08:00] VITALS: BP 154/86
[2017-05-08 12:00] VITALS: BP 134/73
[2017-05-08 16:00] VITALS: BP 146/94
[2017-05-08 20:00] VITALS: BP 123/75
[2017-05-09] VITALS: BP 138/83
[2017-05-09 06:55] LABS: BASO % 0.1 % (0.0-1.0); HEMATOCRIT 33.2 % (42.0-52.0); HEMOGLOBIN 10.7 g/dl (14.0-18.0); LYMPH # 0.9 10*3/uL (1.3-4.4); LYMPH % 8.1 % (27.0-41.0); MEAN CELL VOLUME 96.5 fl (80.0-94.0); MEAN CORPUSCULAR HGB 31.1 pg (27.0-31.0); MEAN CORPUSCULAR HGB CONC 32.2 g/dl (33.0-37.0); MEAN PLATELET VOLUME 11.7 fl (9.6-12.3); MONO # 0.8 10*3/uL (0.1-1.0); MONO % 7.4 % (3.0-9.0); NEUT # 9.2 10*3/uL (2.3-7.9); NEUT % 83.7 % (47.0-73.0); PLATELET COUNT AUTOMATED 169 10*3/uL (130-400); RED BLOOD COUNT 3.44 10*6/uL (4.50-5.90); RED CELL DISTRI WIDTH 14.3 % (0-14.5); WHITE BLOOD COUNT 11.1 10*3/uL (4.8-10.8)
[2017-05-09 07:30] LABS: ALBUMIN 2.9 gm/dl (3.1-4.5); BUN 14 mg/dl (7-24); CHLORIDE 99 mmol/L (98-107); CREATININE 0.66 mg/dL (0.70-1.30); POTASSIUM 3.9 mmol/L (3.5-5.1); SGOT/AST 12 IU/L (3-35); SGPT/ALT 16 U/L (12-78); SODIUM 139 mmol/L (136-145)
[2017-05-09 07:32] LABS: ALKALINE PHOSPHATASE 93 U/L (45-117); TOTAL PROTEIN 6.9 gm/dL (6.4-8.2)
[2017-05-09 08:00] VITALS: BP 141/82
[2017-05-09 12:00] VITALS: BP 121/69
[2017-05-09 16:00] VITALS: BP 116/73
[2017-05-09 20:00] VITALS: BP 140/82
[2017-05-10] VITALS: BP 133/79; BP 146/52
[2017-05-10 06:03] LABS: BASO % 0.1 % (0.0-1.0); HEMATOCRIT 34.1 % (42.0-52.0); HEMOGLOBIN 10.9 g/dl (14.0-18.0); LYMPH # 1.5 10*3/uL (1.3-4.4); LYMPH % 13.9 % (27.0-41.0); MEAN CELL VOLUME 95.8 fl (80.0-94.0); MEAN CORPUSCULAR HGB 30.6 pg (27.0-31.0); MEAN PLATELET VOLUME 11.8 fl (9.6-12.3); MONO # 1.2 10*3/uL (0.1-1.0); MONO % 11.2 % (3.0-9.0); NEUT # 7.9 10*3/uL (2.3-7.9); NUCLEATED RED BLOOD CELL 0.3 % (0.0-0.0); PLATELET COUNT AUTOMATED 204 10*3/uL (130-400); RED BLOOD COUNT 3.56 10*6/uL (4.50-5.90); RED CELL DISTRI WIDTH 14.2 % (0-14.5); WHITE BLOOD COUNT 10.7 10*3/uL (4.8-10.8)
[2017-05-10 06:23] LABS: INTERNATIONAL NORM RATIO 1.1 (2.0-3.5)
[2017-05-10 06:25] LABS: ALBUMIN 2.7 gm/dl (3.1-4.5); ALKALINE PHOSPHATASE 91 U/L (45-117); BUN 16 mg/dl (7-24); CHLORIDE 99 mmol/L (98-107); POTASSIUM 3.8 mmol/L (3.5-5.1); SGOT/AST 33 IU/L (3-35); SGPT/ALT 55 U/L (12-78); SODIUM 138 mmol/L (136-145); TOTAL PROTEIN 6.6 gm/dL (6.4-8.2)
[2017-05-10 08:00] VITALS: BP 170/96
[2017-05-10 12:00] VITALS: BP 135/86
== END 2017-05-10 14:15 | disposition left against medical advice (07) | DRG 871 ==
LOC: ED 14:08 → EDHOLD 15:57 → 5E 15:57
PROVIDERS: Emergency Medicine; Family Medicine; Internal Medicine; Internal Medicine Hospice and Palliative Medicine; Nurse Practitioner Family
PROC: 5A09357 Assistance with Respiratory Ventilation, Less than 24 Consecutive Hours, Continuous Positive Airway Pressure (ICD-10-PCS; principal; 2017-05-07)
PROC: 5A09357 Assistance with Respiratory Ventilation, Less than 24 Consecutive Hours, Continuous Positive Airway Pressure (ICD-10-PCS; 2017-05-08)
DX: A41.9 Sepsis, unspecified organism (principal); J96.22 Acute and chronic respiratory failure with hypercapnia; J96.21 Acute and chronic respiratory failure with hypoxia; E43 Unspecified severe protein-calorie malnutrition; G93.41 Metabolic encephalopathy; E87.3 Alkalosis; D68.59 Other primary thrombophilia; E87.8 Other disorders of electrolyte and fluid balance, not elsewhere classified; J18.9 Pneumonia, unspecified organism; D80.1 Nonfamilial hypogammaglobulinemia; I50.22 Chronic systolic (congestive) heart failure; J44.0 Chronic obstructive pulmonary disease with (acute) lower respiratory infection; I82.512 Chronic embolism and thrombosis of left femoral vein; F20.0 Paranoid schizophrenia; J44.1 Chronic obstructive pulmonary disease with (acute) exacerbation; J84.10 Pulmonary fibrosis, unspecified; R65.20 Severe sepsis without septic shock; G62.9 Polyneuropathy, unspecified; G89.29 Other chronic pain; F32.9 Major depressive disorder, single episode, unspecified; M54.9 Dorsalgia, unspecified; R73.9 Hyperglycemia, unspecified; I11.0 Hypertensive heart disease with heart failure; D63.8 Anemia in other chronic diseases classified elsewhere; D53.9 Nutritional anemia, unspecified; F41.1 Generalized anxiety disorder; Z53.21 Procedure and treatment not carried out due to patient leaving prior to being seen by health care provider; T45.515A Adverse effect of anticoagulants, initial encounter; Y92.89 Other specified places as the place of occurrence of the external cause; Z99.81 Dependence on supplemental oxygen; Z88.5 Allergy status to narcotic agent; Z79.899 Other long term (current) drug therapy; Z87.891 Personal history of nicotine dependence; Z82.49 Family history of ischemic heart disease and other diseases of the circulatory system; Z71.6 Tobacco abuse counseling; Z68.21 Body mass index [BMI] 21.0-21.9, adult

== ENCOUNTER 2017-07-09 23:08 | Inpatient (IN) | payer MEDICARE ==
[~2017-07-09] VITALS: Ht 172.7 cm; Wt 62.1 kg
[~2017-07-09 23:08] MED LIST changes: +AMITRIPTYLINE50 MG PO; -COUMADIN1 M1 PO; +DOXEPIN25 MG PO
[2017-07-09 23:22] VITALS: BP 131/80
[2017-07-10 00:13] LABS: BASO % 0.5 % (0.0-1.0); EOS # 0.2 10*3/uL (0.0-0.4); EOS % 3.2 % (1.0-4.0); HEMATOCRIT 38.1 % (42.0-52.0); HEMOGLOBIN 11.8 g/dl (14.0-18.0); LYMPH # 1.5 10*3/uL (1.3-4.4); LYMPH % 19.7 % (27.0-41.0); MEAN CORPUSCULAR HGB 30.6 pg (27.0-31.0); MEAN PLATELET VOLUME 12.3 fl (9.6-12.3); MONO # 0.9 10*3/uL (0.1-1.0); MONO % 11.4 % (3.0-9.0); NEUT # 4.9 10*3/uL (2.3-7.9); NEUT % 64.9 % (47.0-73.0); PLATELET COUNT AUTOMATED 167 10*3/uL (130-400); RED BLOOD COUNT 3.85 10*6/uL (4.50-5.90); RED CELL DISTRI WIDTH 12.4 % (0-14.5); WHITE BLOOD COUNT 7.5 10*3/uL (4.8-10.8)
[2017-07-10 00:30] LABS: ALKALINE PHOSPHATASE 106 U/L (45-117); BUN 10 mg/dl (7-24); CHLORIDE 99 mmol/L (98-107); CREATININE 0.63 mg/dL (0.70-1.30); POTASSIUM 3.8 mmol/L (3.5-5.1); SGOT/AST 19 IU/L (3-35); SGPT/ALT 15 U/L (12-78); SODIUM 139 mmol/L (136-145); TROPONIN I < 0.015 ng/ml (<0.045)
[2017-07-10 00:30] LABS: ACT PARTIAL THROMBO TIME 61.5 SECONDS (20.8-31.5); INTERNATIONAL NORM RATIO 1.8 (2.0-3.5)
[2017-07-10 00:56] VITALS: BP 111/81
[2017-07-10 01:15] LABS: ABG BASE EXCESS 9.5 mmol/L (-2.0-2.0); ABG HCO3 36.8 mmol/l (22-26); ABG O2 SATURATION 98.7 % (95-97); ARTERIAL BLOOD GAS PCO2 67.4 mmHg (35-45); ARTERIAL BLOOD GAS PH 7.356 (7.35-7.45)
[2017-07-10 01:35] VITALS: BP 138/86
[2017-07-10 07:03] LABS: INTERNATIONAL NORM RATIO 1.6 (2.0-3.5)
[2017-07-10 07:06] LABS: BUN 10 mg/dl (7-24); CHLORIDE 98 mmol/L (98-107); CREATININE 0.58 mg/dL (0.70-1.30); PHOSPHOROUS 3.5 mg/dL (2.5-4.9); POTASSIUM 3.2 mmol/L (3.5-5.1); SODIUM 139 mmol/L (136-145)
[2017-07-10 07:16] LABS: FREE T4 0.79 ng/dl (0.76-1.46); THYROID STIM HORMONE (HS) 0.623 uIU/ml (0.358-4.75)
[2017-07-10 08:00] VITALS: BP 111/64
[2017-07-10 12:00] VITALS: BP 118/68
== END 2017-07-10 15:45 | disposition home or self-care (01) | DRG 189 ==
LOC: ED 23:08 → EDHOLD 07-10 00:44 → 5E 07-10 00:58
PROVIDERS: Student in an Organized Health Care Education/Training Program
DX: J96.21 Acute and chronic respiratory failure with hypoxia (principal); E44.0 Moderate protein-calorie malnutrition; D80.1 Nonfamilial hypogammaglobulinemia; F20.0 Paranoid schizophrenia; I50.22 Chronic systolic (congestive) heart failure; I82.502 Chronic embolism and thrombosis of unspecified deep veins of left lower extremity; I11.0 Hypertensive heart disease with heart failure; J96.22 Acute and chronic respiratory failure with hypercapnia; G62.9 Polyneuropathy, unspecified; G89.29 Other chronic pain; M54.9 Dorsalgia, unspecified; J44.9 Chronic obstructive pulmonary disease, unspecified; F32.9 Major depressive disorder, single episode, unspecified; F41.1 Generalized anxiety disorder; K21.9 Gastro-esophageal reflux disease without esophagitis; R79.1 Abnormal coagulation profile; D53.9 Nutritional anemia, unspecified; R00.0 Tachycardia, unspecified; J84.10 Pulmonary fibrosis, unspecified; Z68.20 Body mass index [BMI] 20.0-20.9, adult; Z71.6 Tobacco abuse counseling; Z99.81 Dependence on supplemental oxygen; Z79.899 Other long term (current) drug therapy; Z88.6 Allergy status to analgesic agent; Z87.01 Personal history of pneumonia (recurrent); Z72.0 Tobacco use; Z82.49 Family history of ischemic heart disease and other diseases of the circulatory system; Z79.01 Long term (current) use of anticoagulants; T45.515A Adverse effect of anticoagulants, initial encounter; Y92.89 Other specified places as the place of occurrence of the external cause

== ENCOUNTER → 2017-08-05 | Outpatient (CLI) | payer MEDICARE ==
[2017-08-06 08:09] LABS: ALPHA-1-ANTITRYPSIN, SERUM 118 mg/dL (90-200)
[2017-08-09 12:06] LABS: PHENOTYPE MS (.)
== END | disposition home or self-care (01) ==
LOC: LAB 10:26
PROVIDERS: Internal Medicine Critical Care Medicine
DX: J44.9 Chronic obstructive pulmonary disease, unspecified (principal)

== ENCOUNTER → 2017-08-31 | Outpatient (CLI) | payer MEDICARE ==
[2017-08-31 15:19] LABS: INTERNATIONAL NORM RATIO 1.4 (2.0-3.5)
== END | disposition home or self-care (01) ==
LOC: LAB 14:49
DX: I82.412 Acute embolism and thrombosis of left femoral vein (principal)

== ENCOUNTER → 2017-09-12 | Outpatient (CLI) | payer MEDICARE ==
--- NOTE | ~2017-09-12 | ST ---
[place], [place] EXERCISE STRESS TEST REPORT [id number] UNIT #: [id number] ROOM: DOCTOR: PRAVIN GOFF MD BIRTHDATE: [birth year] DOS: 09/12/2017 REASON FOR STUDY: Dyspnea, history of chronic lung disease. PROCEDURE: The patient received a rapid infusion of regadenoson 0.4 mg intravenously followed by a saline flush. He experienced mild indigestion which resolved quickly. He did not have any increase in his chronic dyspnea. His pulse oximetry was between 97 and 99% the entire time. His resting heart rate of 63 alma to 75. Resting blood pressure of 90/60 fell to 82/48. Forty seconds after the infusion, he was given radionuclide intravenously. IMPRESSION: 1. Well tolerated infusion of regadenoson. 2. Radionuclide injected. Please see the separate imaging report for further details of the patient's stress test results. PRAVIN GOFF MD CM:STRESS:EXERCISE STRESS TEST REPORT [id number] PRAVIN GOFF MD
== END | disposition home or self-care (01) ==
LOC: CARD 01:10
DX: J98.4 Other disorders of lung (principal); R07.9 Chest pain, unspecified; R06.09 Other forms of dyspnea

== ENCOUNTER 2017-09-18 07:30 | Inpatient (IN) | payer MEDICARE ==
[~2017-09-18] VITALS: Ht 172.7 cm; Wt 61.9 kg
--- NOTE | ~2017-09-18 | CON ---
[place], [place] REPORT OF CONSULTATION NAME: LUAN PLATA UNIT #: [id number] ROOM: 404 DOCTOR: DOROTHY JENKINS MDBABAR BIRTHDATE: [birth year] DOS: 09/19/2017 PULMONARY CONSULTATION EVALUATION MANAGEMENT CONSULTATION REQUESTED BY: Hospitalist Service. REASON FOR CONSULTATION: Assessment of his COPD. HISTORY OF PRESENT ILLNESS: This is a 67-year-old white male who has been known to me from the past. The patient noted with end-stage COPD, chronic hypoxic respiratory failure and other medical illnesses. The patient presented to the Emergency Room on 08/19/2017. He has been brought to the hospital because the patient developed symptoms of increased shortness of breath with chest congestion and noted fall, increased lethargy. The patient stated that he has been still smoking cigarettes, which was started recently Again. The patient's symptoms have been noted worsened. He has been brought to the hospital and admitted to the hospital for the management of acute exacerbation of chronic obstructive pulmonary disease by the ambulance. The patient was noted with increased confusional status with presentation. This morning, the patient stated the symptoms have been noted decreased. He was noted without any symptoms of confusion this morning at the time of the assessment. The cough was noted essentially with chest congestion. There were no sputum expectoration. REVIEW OF SYSTEMS: CONSTITUTIONAL: Fatigue and tiredness reported. Denies symptoms of fever or chills. EYES: Denies any burning, redness, or tenderness. EARS, NOSE, THROAT SYMPTOMS: Denies sore throat, hoarseness, otalgia, postnasal drainage or epistaxis. CARDIOVASCULAR: Denies anginal pain, edema or pain of the lower extremities. GASTROINTESTINAL: The patient denies symptoms of nausea, vomiting, diarrhea, abdominal pain, hematemesis, melena, or hematochezia. GENITOURINARY: No dysuria, suprapubic pain, hematuria. MUSCULOSKELETAL: Denies acute joint pain, redness, or tenderness. SKIN: Denies any lesions, rashes or breakdown. CENTRAL NERVOUS SYSTEM: No dizziness, headache, diplopia, syncopal episodes. Remaining systems were reviewed with the patient and they were noted all negative. PAST MEDICAL HISTORY: 1. End-stage chronic obstructive pulmonary disease, centrilobular emphysema. 2. Generalized anxiety disorder. 3. Chronic hypercapnia. 4. Chronic hypoxic respiratory failure, use of oxygen 4 liter nasal cannula. 5. Mediastinal lymphadenopathy. 6. Epistaxis. 7. Nephrolithiasis. 8. Chronic low back pain. 9. Common variable hypogammaglobulinemia. [place], [place] REPORT OF CONSULTATION NAME: LUAN PLATA UNIT #: [id number] ROOM: [facility] DOCTOR: DOROTHY JENKINS MD,[facility] BIRTHDATE: [birth year] 10. Osteoarthritis. 11. Asbestos-related lung disease. 12. Chronic anticoagulation with history of deep venous thrombosis of the lower extremities. 13. 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 PAST SURGICAL HISTORY: 1. Right MediPort insertion. 2. Left chest tube insertion and the repair of the persistent bronchopleural fistula. The patient with attempted MediPort at [facility] in 2017. 3. Therapeutic bronchoscopies. 4. Lithotripsy, ureteral calculus. 5. Past multiple broken bones and other surgical intervention. 6. Abdominal aortic aneurysm with endovascular graft. FAMILY HISTORY: Noncontributory. CURRENT MEDICATIONS: Administered noted use of folic acid, vitamin D, calcium carbonate, Coumadin, Solu-Medrol 40 mg b.i.d., doxepin, oxybutynin, amitriptyline, Dulera, gabapentin, DuoNeb, azithromycin, Rocephin, and other p.r.n. medications administration. DRUG ALLERGIES: NOTED WITH ALLERGY TO CODEINE PHOSPHATE. PHYSICAL EXAMINATION: GENERAL: A 67-year-old male who has been noted currently awake and alert without acute distress. Height of 5 feet 8 inches, weight of 136 pounds, BMI 20. VITAL SIGNS: Showed normal temperature since admission, respiratory rate between 18-23, heart rate of 104-79, blood pressure is 96/62-112/64. Pulse oxygen saturation on 4 liters nasal cannula 96% saturation. HEENT: Head was atraumatic. Eyes nonicterus. NECK: Supple. CARDIOVASCULAR: S1, S2 audible. LUNGS: The patient was noted general reduction in the breath sounds bilaterally. There was no wheezing or crackles at present noted at this time. ABDOMEN: Soft, nontender. Bowel sounds present. EXTREMITIES: The patient noted without any acute edema. MUSCULOSKELETAL: Without any acute deformities. CENTRAL NERVOUS SYSTEM: Cranial nerves 2-12 intact. MUSCULOSKELETAL: Without any acute deformities. LABORATORY DATA: Lactic acid 1.2 on 09/13/2017. CBC on 09/18/2017, WBC count 16.4, hemoglobin 13.7, platelet count was normal. The PT and PTT were noted as INR 1.5, PTT 29. CMP of the patient 09/18/2017, BUN 6, creatinine was normal. CO2 of 36. The arterial blood of the patient on 09/18/2017, 4 liters, pH 7.35, PCO2 of 66.7, pO2 of 78.2. Culture of the sputum was pending; gram stain from 09/18/2017, many white blood cells, rare epithelial cells, few gram-positive cocci in pairs and chains. Red diplococci. Troponin of 3 sets, 27, temperature normal. PT, INR therapeutic, 2.2 this morning. BMP this morning, normal BUN [place], [place] REPORT OF CONSULTATION NAME: LUAN PLATA UNIT #: [id number] ROOM: [facility] DOCTOR: DALLAS ALBA MDM BIRTHDATE: [birth year] and creatinine. Phosphorus 1.7. CBC on 09/19/2017, WBC count 11.7, hemoglobin 11.3, platelet count was normal. The chest x-ray 2-view which was done on 09/18/2017 was noted with findings compatible with chronic pulmonary fibrosis noted without any acute new infiltration was noted, the x-ray compared of 07/09/2017. IMPRESSION: 1. The patient will be currently admitted to the hospital noted with good nicotine dependence with acute exacerbation of chronic obstructive pulmonary disease. The patient was also noted with possibility of acute bronchitis. 2. The patient with a history of common variable hypogammaglobulinemia. 3. 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 4. Overall chronic with multiple medical problems including advanced chronic obstructive pulmonary disease. 5. Type 2 diabetes mellitus. 6. Chronic anticoagulation with a history of deep venous thrombosis, lower extremities. PLAN OF MANAGEMENT: No changes in the plan of therapy at this time needs to be done. Continuation the plan of management as ongoing with corticosteroids. Antibiotics could be discontinued if the patient does not seem to have any acute bacterial infection. The patient with exacerbation of chronic obstructive pulmonary, most likely occur with use of nicotine products. Other supportive plan and management to be continued as previously in progress. Thanks for allowing me to participate in the care of this patient. BABAR DE LA CRUZ MD CM:CONSTR:REPORT OF CONSULTATION 1118 09/29/17 0829 interface
--- NOTE | ~2017-09-18 | PR ---
[place], [place] PROGRESS NOTE NAME: LUAN PLATA UNIT #: [id number] ROOM: 404 DOCTOR: DOROTHY JENKINS MD,BABAR BIRTHDATE: [birth year] DOS: 09/21/2017 SUBJECTIVE: The patient noted comfortable at this time without any acute distress. Shortness of breath symptoms have been progressively resolving. The patient stated he does not have insomnia as he took his amitriptyline as a routine medication from home. OBJECTIVE: VITAL SIGNS: This morning, normal temperature, respiratory rate 20, heart rate 95, blood pressure 138/80. Pulse oxygen saturation for the patient on 4 L is 100% saturation. The patient currently sitting this morning on the chair. HEENT: No acute abnormalities. CARDIOVASCULAR: S1, S2 audible. LUNGS: The patient noted without any wheezing or crackles. ABDOMEN: Soft, nontender. EXTREMITIES: Without acute edema. LABORATORY DATA: INR noted 3.4. IMPRESSION: 1. The patient with progressive improvement and resolution continued with acute exacerbation of chronic obstructive pulmonary disease. 2. The patient with chronic nicotine dependence as well. PLAN OF MANAGEMENT: The patient could be considered home discharge. The patient on oral medication and followup in the office previously scheduled. BABAR DE LA CRUZ MD CM:PNTRANS [id number] BABAR JENKINS MD 09/21/17 1543 interface
--- NOTE | ~2017-09-18 | PR ---
[place], [place] PROGRESS NOTE NAME: LUAN PLATA UNIT #: [id number] ROOM: 404 DOCTOR: BABAR ALBA MD BIRTHDATE: [birth year] DOS: 09/20/2017 SUBJECTIVE: The patient has been noted comfortable with continued reduction of the symptoms of shortness of breath reported. He has been still noted with general weakness and fatigue. Denies symptoms of chest pain or hemoptysis. The cough has been noted with minimal sputum expectoration. OBJECTIVE: VITAL SIGNS: For the patient which are recorded showed normal temperature, respiratory rate 18, heart rate of 112-109, blood pressure 122/76. The pulse oxygen saturation of the patient recorded on 4-liter nasal cannula as 98% saturation. HEENT: Head was atraumatic. Eye nonicterus. NECK: Supple. CARDIOVASCULAR: S1, S2 audible. LUNGS: Noted with ofrh-vy-zptmoyto decreased breath sounds in the lungs bilaterally with mild expiratory wheezing. There were no crackles. ABDOMEN: Soft, nontender. Bowel sounds present. EXTREMITIES: Without any acute edema. LABORATORY DATA: Sputum culture noted with evidence of heavy growth of Gram-negative diplococci, Moraxella catarrhalis, which are noted to be beta-lactamase positive. IMPRESSION: 1. The patient with resolving acute tracheobronchitis with Branhamella catarrhalis. 2. Chronic nicotine dependence. 3. Acute exacerbation of chronic obstructive pulmonary disease. 4. Chronic hypoxic respiratory failure. PLAN OF MANAGEMENT: The patient has been currently getting intravenous Rocephin and Zithromax. Rocephin will be discontinued as well and will be replaced with oral Levaquin. Solu-Medrol dose will be decreased to 40 mg daily. Monitor respiratory status closely. Preparation for discharge possibly in the next 24 hours depends on further clinical improvement. [place], [place] PROGRESS NOTE NAME: LUAN PLATA UNIT #: [id number] ROOM: 404 DOCTOR: BABAR ALBA MD BIRTHDATE: [birth year] BABAR DE LA CRUZ MD CM:PNTRANS [id number] BABAR JENKINS MD 09/29/17 0830 interface
[2017-09-18 07:30] VITALS: BP 100/73
[~2017-09-18 07:30] MED LIST changes: -AMITRIPTYLINE50 MG PO; +COUMADIN1 M1 PO
[2017-09-18 08:06] LABS: BASO # 0.1 10*3/uL (0.0-0.1); BASO % 0.3 % (0.0-1.0); EOS # 0.2 10*3/uL (0.0-0.4); HEMATOCRIT 44.9 % (42.0-52.0); HEMOGLOBIN 13.7 g/dl (14.0-18.0); LYMPH # 1.2 10*3/uL (1.3-4.4); LYMPH % 7.4 % (27.0-41.0); MEAN CELL VOLUME 97.6 fl (80.0-94.0); MEAN CORPUSCULAR HGB 29.8 pg (27.0-31.0); MEAN CORPUSCULAR HGB CONC 30.5 g/dl (33.0-37.0); MEAN PLATELET VOLUME 12.5 fl (9.6-12.3); MONO # 1.2 10*3/uL (0.1-1.0); MONO % 7.6 % (3.0-9.0); NEUT # 13.7 10*3/uL (2.3-7.9); NEUT % 83.3 % (47.0-73.0); PLATELET COUNT AUTOMATED 218 10*3/uL (130-400); RED CELL DISTRI WIDTH 13.1 % (0-14.5); WHITE BLOOD COUNT 16.4 10*3/uL (4.8-10.8)
[2017-09-18 08:14] LABS: ACT PARTIAL THROMBO TIME 29.4 SECONDS (20.8-31.5); INTERNATIONAL NORM RATIO 1.5 (2.0-3.5)
[2017-09-18 08:22] LABS: ALBUMIN 3.4 gm/dl (3.1-4.5); ALKALINE PHOSPHATASE 123 U/L (45-117); BUN 6 mg/dl (7-24); CHLORIDE 97 mmol/L (98-107); CREATININE 0.71 mg/dL (0.70-1.30); SGOT/AST 16 IU/L (3-35); SGPT/ALT 14 U/L (12-78); SODIUM 140 mmol/L (136-145)
[2017-09-18 08:27] LABS: ETHYL ALCOHOL < 3.0 mg/dl (<3); TROPONIN I < 0.015 ng/ml (<0.045)
[2017-09-18 08:30] VITALS: BP 106/70
[2017-09-18 08:35] LABS: ABG BASE EXCESS 8.8 mmol/L (-2.0-2.0); ABG HCO3 36.2 mmol/l (22-26); ABG O2 SATURATION 94.6 % (95-97); ARTERIAL BLOOD GAS PCO2 66.7 mmHg (35-45); ARTERIAL BLOOD GAS PH 7.356 (7.35-7.45); ARTERIAL BLOOD GAS PO2 78.2 mmHg (80-90)
[2017-09-18 10:00] VITALS: BP 116/61
[2017-09-18 12:00] VITALS: BP 96/62
[2017-09-18 16:00] VITALS: BP 122/68
[2017-09-18 20:00] VITALS: BP 112/64
[2017-09-19] VITALS: BP 118/68
[2017-09-19 06:10] LABS: MEAN CELL VOLUME 97.1 fl (80.0-94.0); MEAN CORPUSCULAR HGB 29.7 pg (27.0-31.0); MEAN CORPUSCULAR HGB CONC 30.5 g/dl (33.0-37.0); MEAN PLATELET VOLUME 12.7 fl (9.6-12.3); PLATELET COUNT AUTOMATED 199 10*3/uL (130-400); RED BLOOD COUNT 3.81 10*6/uL (4.50-5.90); RED CELL DISTRI WIDTH 13.2 % (0-14.5); WHITE BLOOD COUNT 11.7 10*3/uL (4.8-10.8)
[2017-09-19 06:13] LABS: HEMOGLOBIN 11.3 g/dl (14.0-18.0)
[2017-09-19 06:21] LABS: INTERNATIONAL NORM RATIO 2.2 (2.0-3.5)
[2017-09-19 06:32] LABS: CHLORIDE 100 mmol/L (98-107); POTASSIUM 3.8 mmol/L (3.5-5.1); SODIUM 139 mmol/L (136-145)
[2017-09-19 06:49] LABS: BUN 9 mg/dl (7-24); CHOLESTEROL 162 mg/dL (<200); CREATININE 0.81 mg/dL (0.70-1.30); HDL CHOLESTEROL 48 mg/dl (40-60); LDL CHOLESTEROL 103 mg/dL (9-159); PHOSPHOROUS 1.7 mg/dL (2.5-4.9); THYROID STIM HORMONE (HS) 0.203 uIU/ml (0.358-4.75); TRIGLYCERIDES 57 mg/dl (<150); VLDL CHOLESTEROL 11 mg/dL (6-40)
[2017-09-19 06:57] LABS: PLATELET SUFFICIENCY NORMAL (NORMAL); TOTAL CELLS COUNTED 100 #CELLS
[2017-09-19 07:34] LABS: VITAMIN D, 25-HYDROXY 23.4 ng/mL (30-100)
[2017-09-19 08:00] VITALS: BP 111/62
[2017-09-19 08:23] LABS: BILIRUBIN NEGATIVE (NEGATIVE); BLOOD NEGATIVE (NEGATIVE); CLARITY CLEAR (CLEAR); COLOR YELLOW (YELLOW); GLUCOSE 2+ (NEGATIVE); KETONE NEGATIVE (NEGATIVE); LEUKO ESTERASE NEGATIVE (NEGATIVE); NITRITE NEGATIVE (NEGATIVE); PH 6.5 (5.0-9.0); UROBILINOGEN 0.2 E.U./dl (0.2-1.0)
[2017-09-19 12:00] VITALS: BP 120/74
[2017-09-19 16:00] VITALS: BP 130/81
[2017-09-19 20:00] VITALS: BP 120/90
[2017-09-20] VITALS: BP 120/95
[2017-09-20 06:59] LABS: HEMATOCRIT 37.1 % (42.0-52.0); HEMOGLOBIN 11.5 g/dl (14.0-18.0); MEAN CELL VOLUME 95.9 fl (80.0-94.0); MEAN CORPUSCULAR HGB 29.7 pg (27.0-31.0); MEAN PLATELET VOLUME 12.4 fl (9.6-12.3); PLATELET COUNT AUTOMATED 207 10*3/uL (130-400); RED BLOOD COUNT 3.87 10*6/uL (4.50-5.90); RED CELL DISTRI WIDTH 13.8 % (0-14.5)
[2017-09-20 07:06] LABS: INTERNATIONAL NORM RATIO 2.6 (2.0-3.5)
[2017-09-20 07:09] LABS: BUN 9 mg/dl (7-24); CHLORIDE 102 mmol/L (98-107); CREATININE 0.61 mg/dL (0.70-1.30); PHOSPHOROUS 4.4 mg/dL (2.5-4.9); SODIUM 141 mmol/L (136-145)
[2017-09-20 07:16] LABS: POTASSIUM 4.8 mmol/L (3.5-5.1)
[2017-09-20 07:33] LABS: PLATELET SUFFICIENCY NORMAL (NORMAL); TOTAL CELLS COUNTED 100 #CELLS
[2017-09-20 08:00] VITALS: BP 122/76
[2017-09-20 12:00] VITALS: BP 128/86
[2017-09-20 16:00] VITALS: BP 128/70
[2017-09-20 20:00] VITALS: BP 151/86
[2017-09-21 00:04] VITALS: BP 138/77
[2017-09-21 06:41] LABS: INTERNATIONAL NORM RATIO 3.4 (2.0-3.5)
[2017-09-21 08:00] VITALS: BP 138/80
[2017-09-21] MEDS ORDERED: PREDNISONE10 MG PO (09:16)
[2017-09-21] MEDS ORDERED: NATURE'S BLEND F1 MG PO (09:16)
[2017-09-21] MEDS ORDERED: LEVAQUIN500 M2 PO (09:16)
[2017-09-21] MEDS ORDERED: VITAMIN D31000 UNI1 PO (09:16)
== END 2017-09-21 10:21 | disposition home or self-care (01) | DRG 871 ==
LOC: ED 07:30 → EDHOLD 08:58 → 4E 08:58
PROVIDERS: Emergency Medicine; Internal Medicine; Student in an Organized Health Care Education/Training Program
PROC: 5A09357 Assistance with Respiratory Ventilation, Less than 24 Consecutive Hours, Continuous Positive Airway Pressure (ICD-10-PCS; principal; 2017-09-20)
PROC: 5A09357 Assistance with Respiratory Ventilation, Less than 24 Consecutive Hours, Continuous Positive Airway Pressure (ICD-10-PCS; 2017-09-21)
DX: A41.9 Sepsis, unspecified organism (principal); J86.0 Pyothorax with fistula; J96.21 Acute and chronic respiratory failure with hypoxia; E87.4 Mixed disorder of acid-base balance; G93.41 Metabolic encephalopathy; D68.59 Other primary thrombophilia; J18.9 Pneumonia, unspecified organism; E44.1 Mild protein-calorie malnutrition; J96.22 Acute and chronic respiratory failure with hypercapnia; D80.1 Nonfamilial hypogammaglobulinemia; I50.22 Chronic systolic (congestive) heart failure; J44.1 Chronic obstructive pulmonary disease with (acute) exacerbation; F33.9 Major depressive disorder, recurrent, unspecified; F20.0 Paranoid schizophrenia; J44.0 Chronic obstructive pulmonary disease with (acute) lower respiratory infection; Z68.20 Body mass index [BMI] 20.0-20.9, adult; R65.20 Severe sepsis without septic shock; E87.8 Other disorders of electrolyte and fluid balance, not elsewhere classified; R73.9 Hyperglycemia, unspecified; R74.8 Abnormal levels of other serum enzymes; D75.89 Other specified diseases of blood and blood-forming organs; E53.8 Deficiency of other specified B group vitamins; D53.9 Nutritional anemia, unspecified; E55.9 Vitamin D deficiency, unspecified; I11.0 Hypertensive heart disease with heart failure; F17.210 Nicotine dependence, cigarettes, uncomplicated; J84.10 Pulmonary fibrosis, unspecified; J20.8 Acute bronchitis due to other specified organisms; M54.9 Dorsalgia, unspecified; G89.29 Other chronic pain; M19.90 Unspecified osteoarthritis, unspecified site; G62.9 Polyneuropathy, unspecified; F41.1 Generalized anxiety disorder; Z99.81 Dependence on supplemental oxygen; Z88.5 Allergy status to narcotic agent; Z86.718 Personal history of other venous thrombosis and embolism; Z87.01 Personal history of pneumonia (recurrent); Z82.49 Family history of ischemic heart disease and other diseases of the circulatory system; Z79.01 Long term (current) use of anticoagulants; Z87.442 Personal history of urinary calculi

== ENCOUNTER 2017-11-01 19:42 | Inpatient (IN) | payer MEDICARE ==
[~2017-11-01] VITALS: Ht 172.7 cm; Wt 59.0 kg
--- NOTE | ~2017-11-01 | EKG ---
[place], [place] ELECTROCARDIOGRAM REPORT NAME: LUAN PLATA UNIT #: [id number] ROOM: [facility] DOCTOR: JANEEN DRAFT REPORT BIRTHDATE: [birth year] [facility] Test Date: 2017-11-01 Test Time: 20:20:42 Pat Name: LUAN PLATA Department: Room: Gender: [employer] Officer: Regina Diallo : 1950 Requested By: RADHA AGARWAL Order Number: [id number] Reading MD: Chester Weinberg MD Measurements Intervals [place] Rate: 87 P: 82 VA: 133 QRS: 82 QRSD: 99 T: 73 QT: 356 QTc: 429 Interpretive Statements Sinus rhythm Normal EKG Electronically Signed On 11-02-2017 14:14:57 PDT by Chester Weinberg MD CM:EKGRPT:ELECTROCARDIOGRAM REPORT 19 141 RADHA AGARWAL MD EPIPHANY DRAFT REPORT RADHA AGARWAL MD
[~2017-11-01 19:42] MED LIST changes: -COUMADIN1 M1 PO; +NATURE'S BLEND F1 MG PO; +VITAMIN D31000 UNI1 PO
[2017-11-01 19:48] VITALS: BP 129/81
[2017-11-01 20:29] LABS: BASO % 0.2 % (0.0-1.0); EOS # 0.1 10*3/uL (0.0-0.4); EOS % 0.6 % (1.0-4.0); HEMATOCRIT 36.3 % (42.0-52.0); HEMOGLOBIN 11.1 g/dl (14.0-18.0); LYMPH # 1.6 10*3/uL (1.3-4.4); LYMPH % 9.3 % (27.0-41.0); MEAN CELL VOLUME 98.6 fl (80.0-94.0); MEAN CORPUSCULAR HGB 30.2 pg (27.0-31.0); MEAN CORPUSCULAR HGB CONC 30.6 g/dl (33.0-37.0); MEAN PLATELET VOLUME 12.3 fl (9.6-12.3); MONO # 1.2 10*3/uL (0.1-1.0); MONO % 6.8 % (3.0-9.0); NEUT # 14.4 10*3/uL (2.3-7.9); NEUT % 82.6 % (47.0-73.0); PLATELET COUNT AUTOMATED 175 10*3/uL (130-400); RED BLOOD COUNT 3.68 10*6/uL (4.50-5.90); RED CELL DISTRI WIDTH 12.9 % (0-14.5); WHITE BLOOD COUNT 17.5 10*3/uL (4.8-10.8)
[2017-11-01 20:38] LABS: INTERNATIONAL NORM RATIO 3.2 (2.0-3.5)
[2017-11-01 20:45] LABS: ALKALINE PHOSPHATASE 91 U/L (45-117); BUN 7 mg/dl (7-24); CHLORIDE 98 mmol/L (98-107); CREATININE 0.63 mg/dL (0.70-1.30); POTASSIUM 3.9 mmol/L (3.5-5.1); SGOT/AST 16 IU/L (3-35); SGPT/ALT 16 U/L (12-78); SODIUM 139 mmol/L (136-145); TOTAL PROTEIN 6.8 gm/dL (6.4-8.2)
[2017-11-01 20:46] LABS: TROPONIN I < 0.015 ng/ml (<0.045)
[2017-11-01 21:25] VITALS: BP 141/63
[2017-11-01 21:50] VITALS: BP 143/72
[2017-11-02] VITALS: BP 146/82
[2017-11-02 01:00] LABS: BILIRUBIN NEGATIVE (NEGATIVE); BLOOD NEGATIVE (NEGATIVE); CLARITY CLEAR (CLEAR); COLOR YELLOW (YELLOW); GLUCOSE NEGATIVE (NEGATIVE); KETONE NEGATIVE (NEGATIVE); LEUKO ESTERASE NEGATIVE (NEGATIVE); NITRITE NEGATIVE (NEGATIVE); SPECIFIC GRAVITY <= 1.005 (1.005-1.030); UROBILINOGEN 0.2 E.U./dl (0.2-1.0)
[2017-11-02 01:12] LABS: WBC 0-2 wbc/hpf (0-5)
[2017-11-02 08:00] VITALS: BP 114/66
[2017-11-02 08:12] LABS: HEMATOCRIT 36.1 % (42.0-52.0); HEMOGLOBIN 11.1 g/dl (14.0-18.0); MEAN CELL VOLUME 97.6 fl (80.0-94.0); MEAN CORPUSCULAR HGB CONC 30.7 g/dl (33.0-37.0); MEAN PLATELET VOLUME 12.1 fl (9.6-12.3); PLATELET COUNT AUTOMATED 173 10*3/uL (130-400); WHITE BLOOD COUNT 10.6 10*3/uL (4.8-10.8)
[2017-11-02 08:21] LABS: ACT PARTIAL THROMBO TIME 41.9 SECONDS (20.8-31.5); INTERNATIONAL NORM RATIO 2.3 (2.0-3.5)
[2017-11-02 08:31] LABS: ALBUMIN 2.7 gm/dl (3.1-4.5); ALKALINE PHOSPHATASE 87 U/L (45-117); BUN 7 mg/dl (7-24); CHLORIDE 105 mmol/L (98-107); CREATININE 0.62 mg/dL (0.70-1.30); POTASSIUM 3.7 mmol/L (3.5-5.1); SGOT/AST 9 IU/L (3-35); SGPT/ALT 13 U/L (12-78); SODIUM 144 mmol/L (136-145); TOTAL PROTEIN 6.6 gm/dL (6.4-8.2)
[2017-11-02 08:35] VITALS: BP 128/74
[2017-11-02 08:38] LABS: THYROID STIM HORMONE (HS) 0.147 uIU/ml (0.358-4.75)
[2017-11-02 08:53] LABS: PHOSPHOROUS 0.8 mg/dL (2.5-4.9)
[2017-11-02 08:57] LABS: PLATELET SUFFICIENCY NORMAL (NORMAL); TOTAL CELLS COUNTED 100 #CELLS
[2017-11-02 12:00] VITALS: BP 132/75
[2017-11-02] MEDS ORDERED: NORCO 10-325 T1 EACH PO (12:29)
[2017-11-02 16:00] VITALS: BP 145/70
[2017-11-02] MEDS ORDERED: COLACE100 MG PO (16:53)
[2017-11-02 20:00] VITALS: BP 121/77
[2017-11-03] VITALS: BP 126/69
[2017-11-03 07:52] LABS: INTERNATIONAL NORM RATIO 1.7 (2.0-3.5)
[2017-11-03 07:58] VITALS: BP 124/72
[2017-11-03 08:08] LABS: FREE T4 0.7 ng/dl (0.76-1.46); PHOSPHOROUS 2.6 mg/dL (2.5-4.9)
[2017-11-03 12:00] VITALS: BP 129/65
[2017-11-03] MEDS ORDERED: [UNRECOGNIZED DRUG - OTHER] IV (12:20)
[2017-11-03 16:00] VITALS: BP 132/76
[2017-11-03 20:00] VITALS: BP 148/83
[2017-11-04] VITALS: BP 129/84
[2017-11-04 06:32] LABS: INTERNATIONAL NORM RATIO 2.5 (2.0-3.5)
[2017-11-04 08:00] VITALS: BP 152/72
[2017-11-04] MEDS ORDERED: PREDNISONE10 MG PO (11:06)
[2017-11-04] MEDS ORDERED: LEVAQUIN750 M1 PO (11:06)
[2017-11-04] MEDS ORDERED: FLUCONAZOLE100 MG PO (11:06)
== END 2017-11-04 11:37 | disposition home or self-care (01) | DRG 871 ==
LOC: ED 19:42 → EDHOLD 21:18 → 4E 21:18
PROVIDERS: Emergency Medicine Emergency Medical Services; Internal Medicine; Student in an Organized Health Care Education/Training Program
DX: A41.9 Sepsis, unspecified organism (principal); J18.9 Pneumonia, unspecified organism; J86.0 Pyothorax with fistula; J96.20 Acute and chronic respiratory failure, unspecified whether with hypoxia or hypercapnia; E43 Unspecified severe protein-calorie malnutrition; G93.41 Metabolic encephalopathy; D68.59 Other primary thrombophilia; E44.0 Moderate protein-calorie malnutrition; E83.39 Other disorders of phosphorus metabolism; D80.1 Nonfamilial hypogammaglobulinemia; J44.1 Chronic obstructive pulmonary disease with (acute) exacerbation; I50.22 Chronic systolic (congestive) heart failure; J44.0 Chronic obstructive pulmonary disease with (acute) lower respiratory infection; F20.0 Paranoid schizophrenia; I82.502 Chronic embolism and thrombosis of unspecified deep veins of left lower extremity; Z68.1 Body mass index [BMI] 19.9 or less, adult; J84.10 Pulmonary fibrosis, unspecified; W06.XXXA Fall from bed, initial encounter; M54.9 Dorsalgia, unspecified; F32.9 Major depressive disorder, single episode, unspecified; F41.1 Generalized anxiety disorder; F17.200 Nicotine dependence, unspecified, uncomplicated; I11.0 Hypertensive heart disease with heart failure; D53.9 Nutritional anemia, unspecified; E53.8 Deficiency of other specified B group vitamins; G89.29 Other chronic pain; G62.9 Polyneuropathy, unspecified; Z82.49 Family history of ischemic heart disease and other diseases of the circulatory system; Y93.89 Activity, other specified; Y92.098 Other place in other non-institutional residence as the place of occurrence of the external cause; Y99.8 Other external cause status; Z79.899 Other long term (current) drug therapy; Z79.01 Long term (current) use of anticoagulants; Z71.6 Tobacco abuse counseling; Z99.81 Dependence on supplemental oxygen; Z88.5 Allergy status to narcotic agent

== ENCOUNTER 2017-11-09 10:39 | Inpatient (IN) | payer MEDICARE ==
[~2017-11-09] VITALS: Ht 172.7 cm; Wt 62.3 kg
--- NOTE | ~2017-11-09 | CON ---
[place], [place] REPORT OF CONSULTATION NAME: [facility]ATA [facility] #[facility] [id number] UNIT #: [id number] ROOM: 526 DOCTOR: DOROTHY JENKINS MDBABAR BIRTHDATE: [birth year] DOS: 11/10/2017 PULMONARY CONSULTATION AND EVALUATION MANAGEMENT CONSULTATION REQUESTED BY: Hospitalist service. REASON FOR CONSULTATION: Assessment of the respiratory failure. HISTORY OF PRESENT ILLNESS: This is a 67-year-old white male with history of end-stage COPD, chronic hypoxic respiratory failure with frequent hospitalization. He has been admitted to the hospital under the hospitalist service from the date of 11/01/2017 until 11/04/2017 for the similar symptom. The patient presented back to the Emergency Room yesterday as he developed symptoms of increased shortness of breath at home. He was also noted change in mental status, increased lethargy, difficulty to arouse. The patient brought to the hospital Emergency Room for further assessment. He has been noted with a history of chest tightness as well. The cough has been reported without any sputum expectoration. Arterial blood gas yesterday was done for the patient noted consistent with diagnosis of acute or chronic hypercapnic respiratory failure. The patient has been currently admitted to the hospital, starting the BiPAP settings were optimized for the patient after I was called for consultation after the arterial blood gases assessment. The patient has used the BiPAP most of time until last night. This morning, the patient has been noted oxygen supplementation nasal cannula, noted to be more awake and not noted with any lethargy. REVIEW OF SYSTEMS: CONSTITUTIONAL: Fatigue and tiredness reported. Denies symptoms of fever or chills. EYES: Denies burning, redness, discharge or blurry vision. EARS, NOSE, THROAT SYMPTOMS: Denies sore throat, hoarseness, otalgia, postnasal drainage or epistaxis. CARDIOVASCULAR: No anginal pain, edema or pain of the lower extremities. GASTROINTESTINAL: Denies dysphagia, nausea, vomiting, diarrhea, abdominal pain, hematemesis, melena or hematochezia. SKIN: Denies abnormal lesions or rashes. Scattered bruising was noted for the patient because of previous history of steroid use. There were no itching or lesions or open areas. CENTRAL NERVOUS SYSTEM: No dizziness, headache, diplopia or syncopal episode. MUSCULOSKELETAL: Denies any joint pain, redness, tenderness or deformities. Remaining systems were reviewed, they were noted all negative. Past medical, surgical history, family history for this patient were reviewed for the patient since my consultation, which was done for the patient on 09/19/2017 and remains unchanged after review with the patient since then. The report was available in the [facility] for the patient for the reference whenever needed. SOCIAL HISTORY: The patient has been noted with intermittent tobacco use for [place], [place] REPORT OF CONSULTATION NAME: LUAN PLATA UNIT #: [id number] ROOM: 526 DOCTOR: DOROTHY JENKINS MD,BABAR BIRTHDATE: [birth year] this patient with a short period of tobacco cessation noted. He is and lives at home. MEDICATIONS: The current medication administered noted use of Megace, nicotine replacement patches, folic acid, vitamin D, ibuprofen, gabapentin, oxybutynin, metoprolol, amitriptyline, Dulera, DuoNeb and prednisone tapering dose. DRUG ALLERGIES: NOTED ALLERGY TO CODEINE. PHYSICAL EXAMINATION: GENERAL: This is a 67-year-old white male who has been noted currently awake and alert without any acute distress. Height of 5 feet 8 inches, weight of 137 pounds, BMI 20.8. VITAL SIGNS: For the patient which has been recorded showed the temperature noted normal, respiratory rate 16-20, heart rate of 77-111. The blood pressure ranging between 115/64-105/68. The pulse oxygen saturation of the patient was noted on 4-liter nasal cannula 94% saturation, with the BiPAP was 96% saturation. HEENT: Some loss of muscle mass, which is chronic. Head was atraumatic. Eyes: Nonicterus. NECK: Supple. CARDIOVASCULAR: S1, S2 is audible. LUNGS: The patient was noted with general reduction in the breath sounds, scattered wheezing, no crackles. ABDOMEN: Flat, soft, nontender. EXTREMITIES: Some loss of muscle mass of the patient was noted. MUSCULOSKELETAL: Noted without any deformities. CENTRAL NERVOUS SYSTEM: Cranial nerves 2-12 intact. LABORATORY DATA: The arterial blood gas of the patient that was done yesterday on admission pH of 7.27, pCO2 87, pO2 of 82.2. Arterial blood gas of the patient that was done, on the BiPAP for this patient after adjustment, pH of 7.40, pCO2 of 60, pO2 of 55 on 35% oxygen at that time. Arterial blood gas this morning, 4 liter nasal cannula, pH of 7.34, pCO2 of 74, pO2 79.4. CBC this morning for the patient noted as hemoglobin 10.6, WBC count normal, platelet count normal. BMP this morning, normal BUN and creatinine. Potassium 3.1. Carbon dioxide of 42. PT/INR with the patient noted elevated at 6.7. The PT/INR of the patient yesterday was noted at 8.4. Lactic acid was 0.8. The chest x-ray of the patient 1 view, which was done for the patient on 11/09/2017 was noted with changes of COPD for this patient without any acute pulmonary infiltration. CT scan of the head was noted without any acute intracranial abnormalities per radiology report. Troponins were noted as negative yesterday 3 sets. CMP yesterday for the patient noted with a CO2 at that time of 43. IMPRESSION: 1. The patient with acute on chronic, recurrent acute or chronic hypoxic respiratory failure. 2. Metabolic alkalosis of the patient was noted related to chronic hypercarbia. 3. Chronic nicotine dependence. 4. Acute exacerbation of chronic obstructive pulmonary disease with possibility [place], [place] REPORT OF CONSULTATION NAME: LUAN PLATA UNIT #: [id number] ROOM: 526 DOCTOR: DALLAS ALBA MDM BIRTHDATE: [birth year] of acute bronchitis as well. 5. Frequent hospitalization because of continued nicotine abuse. 6. Coumadin toxicity secondary to drug interaction. PLAN OF MANAGEMENT: At this time, the patient's Coumadin was already adjusted by the primary care attending. Continue tapering dose of prednisone previously ordered. Monitor respiratory status closely. Continue the BiPAP for this patient as ordered. The patient does have noninvasive ventilator at home use, which will be started after stability achieved for the patient's acute on chronic respiratory failure. Continue nicotine replacement patches. Order the sputum for Gram stain and culture, if any infection identified for the patient, certainly, the patient will be started on antibiotic. He will be continued on immunoglobulin supplementation with history of common variable hypogammaglobulinemia to prevent the recurrent pneumonia, which has been noted effective. However, the current hospitalization was noted because of the patient's history of tobacco use and current nicotine dependence, which has been resumed for the patient after a few months. BABAR DE LA CRUZ MD CM:CONSTR:REPORT OF CONSULTATION 1438 11/11/17 0100 interface
--- NOTE | ~2017-11-09 | EKG ---
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
--- NOTE | ~2017-11-09 | PR ---
[place], [place] PROGRESS NOTE NAME: LUAN PLATA UNIT #: [id number] ROOM: 526 DOCTOR: DOROTHY JENKINS MD,BABAR BIRTHDATE: [birth year] DOS: 11/12/2017 PULMONARY PROGRESS NOTE SUBJECTIVE: The patient noted comfortable at this time without any acute distress. He has been showing gradual reduction and improvement in respiratory symptoms. Significant improvement in respiratory symptoms was noted in the last 24 hours. Denies symptoms of chest pain or hemoptysis. OBJECTIVE: VITAL SIGNS: For the patient this afternoon with normal temperature, respiratory rate 18, heart rate of 97, blood pressure 134/74. Pulse oxygen saturation recorded as 96% saturation on 4 liters cannula. HEENT: Shows head was atraumatic. Eye nonicterus. NECK: Supple. CARDIOVASCULAR: S1, S2 audible. LUNGS: Without any wheezing or crackles. ABDOMEN: Soft, nontender. Bowel sounds present. EXTREMITIES: Without any acute edema. IMPRESSION: 1. The patient has stable respiratory status noted at the present time with current medical management. 2. Resolving acute on chronic hypercapnic hypoxic respiratory failure. 3. Chronic nicotine dependence. PLAN OF TREATMENT: The patient could be discharged home on tapering dose of prednisone, bronchodilators and advised of nicotine abstinence. Followup office visit as previously will be kept by the patient. BABAR DE LA CRUZ MD CM:PNTRANS [id number] BABAR JENKINS MD 11/13/17 0649 interface
--- NOTE | ~2017-11-09 | PR ---
[place], [place] PROGRESS NOTE NAME: LUAN PLATA UNIT #: [id number] ROOM: 526 DOCTOR: BABAR ALBA MD BIRTHDATE: [birth year] DOS: 11/11/2017 PULMONARY PROGRESS NOTE SUBJECTIVE: He has been noted comfortable, stating that he is feeling better. Denies symptoms of chest pain. Shortness of breath is improving. There were no symptoms of wheezing reported by the patient. He has used BiPAP last night; this morning, using oxygen supplementation through nasal cannula, resting comfortably in the bed. OBJECTIVE: VITAL SIGNS: Normal temperature, respiratory rate 20, heart rate 73, blood pressure 118/86. Pulse oxygen saturation of the patient was noted as 98% saturation. HEENT: Shows head was atraumatic, eyes nonicterus. NECK: Supple. CARDIOVASCULAR: S1, S2 audible. LUNGS: The patient was noted with moderate general decreased breath sounds in the lungs. There was no wheezing heard. ABDOMEN: Soft, nontender. Bowel sounds present. EXTREMITIES: Without any acute edema. LABORATORY DATA: Culture of urine was noted to have moderate growth of gram-positive cocci, pending identifications and sensitivities. INR for the patient was noted yesterday at 6.7, there was no INR done this morning; doubt if it is done, it is pending. IMPRESSION: 1. The patient with acute exacerbation of chronic obstructive pulmonary disease with gradual improvement. 2. Mild Coumadin toxicity. 3. The patient with isolation of gram-positive cocci in urine. The patient has possible urinary tract infection with colonization. 4. The patient with chronic hypercapnic and hypoxic respiratory failure. 5. Nonadherence to treatment with continued chronic nicotine use as well. PLAN OF MANAGEMENT: No changes in the plan of care of the patient at this time. Continue the patient on current therapy. Plan is in progress. Usual care, other supportive plan of therapy, management and plan of care. [place], [place] PROGRESS NOTE NAME: LUAN PLATA UNIT #: [id number] ROOM: 526 DOCTOR: BABAR ALBA MD BIRTHDATE: [birth year] BBAAR DE LA CRUZ MD CM:PNTRANS [id number] BABAR JENKINS MD 11/11/17 0936 interface
[~2017-11-09 10:39] MED LIST changes: +FLUCONAZOLE100 MG PO; +[UNRECOGNIZED DRUG - OTHER] IV
[2017-11-09 10:40] VITALS: BP 123/63
[2017-11-09 11:31] LABS: ABG HCO3 39.9 mmol/l (22-26); ABG O2 SATURATION 96.4 % (95-97); ARTERIAL BLOOD GAS PH 7.277 (7.35-7.45); ARTERIAL BLOOD GAS PO2 82.2 mmHg (80-90)
[2017-11-09 11:38] LABS: HEMATOCRIT 38.8 % (42.0-52.0); HEMOGLOBIN 11.8 g/dl (14.0-18.0); MEAN CORPUSCULAR HGB 30.4 pg (27.0-31.0); MEAN CORPUSCULAR HGB CONC 30.4 g/dl (33.0-37.0); MEAN PLATELET VOLUME 10.4 fl (9.6-12.3); NUCLEATED RED BLOOD CELL 0.2 % (0.0-0.0); PLATELET COUNT AUTOMATED 297 10*3/uL (130-400); RED BLOOD COUNT 3.88 10*6/uL (4.50-5.90); RED CELL DISTRI WIDTH 13.6 % (0-14.5); WHITE BLOOD COUNT 9.9 10*3/uL (4.8-10.8)
[2017-11-09 11:42] LABS: ARTERIAL BLOOD GAS PCO2 87.5 mmHg (35-45)
[2017-11-09 11:55] LABS: ALKALINE PHOSPHATASE 65 U/L (45-117); BUN 9 mg/dl (7-24); CHLORIDE 95 mmol/L (98-107); CREATININE 0.74 mg/dL (0.70-1.30); POTASSIUM 3.8 mmol/L (3.5-5.1); SGOT/AST 14 IU/L (3-35); SGPT/ALT 25 U/L (12-78); SODIUM 138 mmol/L (136-145); TOTAL PROTEIN 7.1 gm/dL (6.4-8.2)
[2017-11-09 11:57] LABS: ACT PARTIAL THROMBO TIME 57.1 SECONDS (20.8-31.5)
[2017-11-09 12:00] LABS: INTERNATIONAL NORM RATIO 8.4 (2.0-3.5)
[2017-11-09 12:06] LABS: ETHYL ALCOHOL < 3.0 mg/dl (<3); TOTAL CELLS COUNTED 100 #CELLS; TROPONIN I < 0.015 ng/ml (<0.045)
[2017-11-09 12:07] LABS: PLATELET SUFFICIENCY NORMAL (NORMAL)
[2017-11-09 12:17] VITALS: BP 132/79
[2017-11-09 12:50] VITALS: BP 150/91
[2017-11-09] MEDS ORDERED: MEGACE ES625 MG/5 M PO (12:53)
[2017-11-09] MEDS ORDERED: CLOBETASOL PROP15 GM T (12:54)
[2017-11-09] MEDS ORDERED: NICODERM CQ1 EAC1 TD (12:55)
[2017-11-09] MEDS ORDERED: NATURE'S BLEND F1 MG PO (12:56)
[2017-11-09] MEDS ORDERED: METOPROLOL TART50 M1 PO (12:58)
[2017-11-09 13:00] VITALS: BP 150/91
[2017-11-09] MEDS ORDERED: IBUPROFEN600 MG PO (13:05)
[2017-11-09] MEDS ORDERED: AYR SALINE MIST50 ML NAS (13:06)
[2017-11-09] MEDS ORDERED: Ipratropium Brom3 ML INH (13:07)
[2017-11-09] MEDS ORDERED: MEGESTROL ACETA40 MG PO (13:08)
[2017-11-09 16:00] VITALS: BP 102/67
[2017-11-09 20:00] VITALS: BP 115/64
[2017-11-09 20:15] LABS: BILIRUBIN NEGATIVE (NEGATIVE); BLOOD 1+ (NEGATIVE); CLARITY CLEAR (CLEAR); COLOR YELLOW (YELLOW); GLUCOSE NEGATIVE (NEGATIVE); KETONE NEGATIVE (NEGATIVE); LEUKO ESTERASE 1+ (NEGATIVE); NITRITE NEGATIVE (NEGATIVE); UROBILINOGEN 0.2 E.U./dl (0.2-1.0)
[2017-11-09 20:30] LABS: BACTERIA 1+; WBC 21-30 wbc/hpf (0-5)
[2017-11-09 21:40] LABS: ABG BASE EXCESS 14.7 mmol/L (-2.0-2.0); ABG HCO3 42.4 mmol/l (22-26); ABG O2 SATURATION 92.1 % (95-97); ARTERIAL BLOOD GAS PCO2 68.2 mmHg (35-45); ARTERIAL BLOOD GAS PH 7.406 (7.35-7.45); ARTERIAL BLOOD GAS PO2 55.7 mmHg (80-90)
[2017-11-10] VITALS: BP 90/56
[2017-11-10 07:12] LABS: EOS # 0.2 10*3/uL (0.0-0.4); EOS % 2.8 % (1.0-4.0); HEMATOCRIT 35.3 % (42.0-52.0); HEMOGLOBIN 10.6 g/dl (14.0-18.0); LYMPH # 2.5 10*3/uL (1.3-4.4); LYMPH % 33.4 % (27.0-41.0); MEAN CELL VOLUME 100.6 fl (80.0-94.0); MEAN CORPUSCULAR HGB 30.2 pg (27.0-31.0); MONO % 13.6 % (3.0-9.0); NEUT # 3.8 10*3/uL (2.3-7.9); NEUT % 49.7 % (47.0-73.0); PLATELET COUNT AUTOMATED 248 10*3/uL (130-400); RED BLOOD COUNT 3.51 10*6/uL (4.50-5.90); RED CELL DISTRI WIDTH 13.8 % (0-14.5); WHITE BLOOD COUNT 7.6 10*3/uL (4.8-10.8)
[2017-11-10 07:21] LABS: ABG HCO3 40.1 mmol/l (22-26); ABG O2 SATURATION 96.6 % (95-97); ARTERIAL BLOOD GAS PH 7.346 (7.35-7.45); ARTERIAL BLOOD GAS PO2 79.4 mmHg (80-90)
[2017-11-10 07:26] LABS: ARTERIAL BLOOD GAS PCO2 74.2 mmHg (35-45)
[2017-11-10 07:38] LABS: BUN 13 mg/dl (7-24); CHLORIDE 95 mmol/L (98-107); CREATININE 0.77 mg/dL (0.70-1.30); PHOSPHOROUS 2.8 mg/dL (2.5-4.9); POTASSIUM 3.1 mmol/L (3.5-5.1); SODIUM 141 mmol/L (136-145)
[2017-11-10 08:00] VITALS: BP 93/62
[2017-11-10 08:00] LABS: INTERNATIONAL NORM RATIO 6.7 (2.0-3.5)
[2017-11-10 12:00] VITALS: BP 105/68
[2017-11-10 16:00] VITALS: BP 117/74
[2017-11-10 20:00] VITALS: BP 137/72
[2017-11-11] VITALS: BP 118/86
[2017-11-11 07:00] LABS: BASO % 0.1 % (0.0-1.0); EOS # 0.1 10*3/uL (0.0-0.4); EOS % 0.5 % (1.0-4.0); HEMATOCRIT 36.3 % (42.0-52.0); HEMOGLOBIN 11.1 g/dl (14.0-18.0); LYMPH # 2.3 10*3/uL (1.3-4.4); LYMPH % 17.7 % (27.0-41.0); MEAN CELL VOLUME 97.8 fl (80.0-94.0); MEAN CORPUSCULAR HGB 29.9 pg (27.0-31.0); MEAN CORPUSCULAR HGB CONC 30.6 g/dl (33.0-37.0); MEAN PLATELET VOLUME 10.8 fl (9.6-12.3); MONO # 1.3 10*3/uL (0.1-1.0); MONO % 9.8 % (3.0-9.0); NEUT # 9.2 10*3/uL (2.3-7.9); NEUT % 71.6 % (47.0-73.0); PLATELET COUNT AUTOMATED 257 10*3/uL (130-400); RED BLOOD COUNT 3.71 10*6/uL (4.50-5.90); RED CELL DISTRI WIDTH 14.1 % (0-14.5); WHITE BLOOD COUNT 12.8 10*3/uL (4.8-10.8)
[2017-11-11 07:13] LABS: INTERNATIONAL NORM RATIO 2.3 (2.0-3.5)
[2017-11-11 07:14] LABS: BUN 10 mg/dl (7-24); CHLORIDE 94 mmol/L (98-107); CREATININE 0.76 mg/dL (0.70-1.30); POTASSIUM 3.5 mmol/L (3.5-5.1); SODIUM 138 mmol/L (136-145)
[2017-11-11 08:00] VITALS: BP 124/79
[2017-11-11 12:00] VITALS: BP 105/69
[2017-11-11 16:00] VITALS: BP 121/74
[2017-11-11 20:00] VITALS: BP 139/85
[2017-11-12] VITALS: BP 141/78
[2017-11-12 06:48] LABS: BASO % 0.1 % (0.0-1.0); EOS # 0.1 10*3/uL (0.0-0.4); EOS % 0.3 % (1.0-4.0); HEMATOCRIT 36.4 % (42.0-52.0); HEMOGLOBIN 11.3 g/dl (14.0-18.0); LYMPH # 2.1 10*3/uL (1.3-4.4); LYMPH % 13.4 % (27.0-41.0); MEAN CELL VOLUME 96.3 fl (80.0-94.0); MEAN CORPUSCULAR HGB 29.9 pg (27.0-31.0); MEAN PLATELET VOLUME 11.3 fl (9.6-12.3); MONO # 1.3 10*3/uL (0.1-1.0); MONO % 8.3 % (3.0-9.0); NEUT % 77.4 % (47.0-73.0); PLATELET COUNT AUTOMATED 272 10*3/uL (130-400); RED BLOOD COUNT 3.78 10*6/uL (4.50-5.90); RED CELL DISTRI WIDTH 14.2 % (0-14.5); WHITE BLOOD COUNT 15.5 10*3/uL (4.8-10.8)
[2017-11-12 06:59] LABS: INTERNATIONAL NORM RATIO 1.3 (2.0-3.5)
[2017-11-12 07:02] LABS: BUN 12 mg/dl (7-24); CHLORIDE 98 mmol/L (98-107); CREATININE 0.66 mg/dL (0.70-1.30); POTASSIUM 3.8 mmol/L (3.5-5.1); SODIUM 138 mmol/L (136-145)
[2017-11-12 08:00] VITALS: BP 131/92
[2017-11-12 12:00] VITALS: BP 134/74
[2017-11-12] MEDS ORDERED: PREDNISONE10 MG PO (14:51)
== END 2017-11-12 15:28 | disposition home health service (06) | DRG 189 ==
LOC: ED 10:39 → EDHOLD 12:10 → 5E 12:10
PROVIDERS: Emergency Medicine; Internal Medicine; Internal Medicine Critical Care Medicine; Student in an Organized Health Care Education/Training Program
PROC: 5A09357 Assistance with Respiratory Ventilation, Less than 24 Consecutive Hours, Continuous Positive Airway Pressure (ICD-10-PCS; principal; 2017-11-09)
PROC: 5A09357 Assistance with Respiratory Ventilation, Less than 24 Consecutive Hours, Continuous Positive Airway Pressure (ICD-10-PCS; 2017-11-10)
DX: J96.22 Acute and chronic respiratory failure with hypercapnia (principal); G93.41 Metabolic encephalopathy; E44.0 Moderate protein-calorie malnutrition; D68.59 Other primary thrombophilia; D80.1 Nonfamilial hypogammaglobulinemia; E87.8 Other disorders of electrolyte and fluid balance, not elsewhere classified; F20.0 Paranoid schizophrenia; I82.509 Chronic embolism and thrombosis of unspecified deep veins of unspecified lower extremity; I50.22 Chronic systolic (congestive) heart failure; J44.1 Chronic obstructive pulmonary disease with (acute) exacerbation; J96.21 Acute and chronic respiratory failure with hypoxia; J84.10 Pulmonary fibrosis, unspecified; F41.1 Generalized anxiety disorder; I11.0 Hypertensive heart disease with heart failure; E55.9 Vitamin D deficiency, unspecified; Z99.81 Dependence on supplemental oxygen; G89.29 Other chronic pain; M54.9 Dorsalgia, unspecified; G62.9 Polyneuropathy, unspecified; T45.515A Adverse effect of anticoagulants, initial encounter; Y92.89 Other specified places as the place of occurrence of the external cause; Z71.6 Tobacco abuse counseling; Z72.0 Tobacco use; F32.9 Major depressive disorder, single episode, unspecified; Z79.01 Long term (current) use of anticoagulants; Z88.6 Allergy status to analgesic agent; Z79.899 Other long term (current) drug therapy; Z87.01 Personal history of pneumonia (recurrent); Z82.49 Family history of ischemic heart disease and other diseases of the circulatory system; Z68.20 Body mass index [BMI] 20.0-20.9, adult

== ENCOUNTER 2017-11-27 11:27 | Inpatient (IN) | payer MEDICARE ==
[~2017-11-27] VITALS: Ht 172.7 cm; Wt 65.4 kg
--- NOTE | ~2017-11-27 | EKG ---
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
--- NOTE | ~2017-11-27 | EKG ---
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
--- NOTE | ~2017-11-27 | PR ---
[place], [place] PROGRESS NOTE NAME: LUAN PLATA UNIT #: [id number] ROOM: 421 DOCTOR: BABAR ALBA MD BIRTHDATE: [birth year] DOS: 11/29/2017 SUBJECTIVE: The patient noted comfortable at this time without any acute distress, resting comfortably in the bed. Has not been noted any ongoing acute new respiratory complaints at the present time. Shortness of breath has been decreasing. The patient was still noted coughing, which has gradually resolving as well. There were no symptoms of chest pain reported by the patient using the BiPAP at nighttime ____ oxygen supplementation ____ OBJECTIVE: VITAL SIGNS: For the patient, which has been recorded showed the temperature noted as normal. The respiratory rate of the patient recorded as 20, heart rate of 76, and blood pressure 116/82. The pulse ox saturation on 4 liters nasal cannula 99% saturation. HEENT: No acute change. CARDIOVASCULAR: S1, S2 audible. LUNGS: Noted moderate decreased breath sounds. Mild expiratory wheezing, no crackles. ABDOMEN: Soft, nontender. EXTREMITIES: No acute changes. LABORATORY DATA: CMP today, glucose 139. Normal BUN and creatinine, CO2 35. CBC this morning. WBC count 12.9, hemoglobin 10.4, hematocrit 32.7, and platelet count was normal. INR noted 2.9. IMPRESSION: The patient has been noted with resolving acute on chronic hypercapnia hypoxic respiratory failure, exacerbation of chronic obstructive pulmonary disease, stable metabolic alkalosis therapeutic INR for chronic thromboembolism with the long-term anticoagulation. PLAN OF TREATMENT: No changes in plan of care. Continue the BiPAP use. The oxygen supplementation, bronchodilators and current dose of corticosteroids. Potential discharge home could be considered for the morning. [place], [place] PROGRESS NOTE NAME: LUAN PLATA UNIT #: [id number] ROOM: 421 DOCTOR: BABAR ALBA MD BIRTHDATE: [birth year] BABAR DE LA CRUZ MD CM:PNTRANS [id number] BABAR JENKINS MD 11/29/17 1143 interface
--- NOTE | ~2017-11-27 | CON ---
[place], [place] REPORT OF CONSULTATION NAME: LUAN PLATA UNIT #: [id number] ROOM: 421 DOCTOR: DOROTHY JENKINS MDBABAR BIRTHDATE: [birth year] DOS: 11/27/2017 PULMONARY CONSULTATION EVALUATION AND MANAGEMENT CONSULTATION REQUESTED BY: Hospitalist Service. REASON FOR CONSULTATION: Assessment of current acute on chronic respiratory failure. HISTORY OF PRESENT ILLNESS: The patient is a pleasant 67-year-old white male who has been admitted to the hospital. The patient has noted increased confusional status at home for the past few days. He has been noted acting up correctly by the family member because of confusion. Then brought to the hospital, also noted with the falls at home, general weakness and fatigue. The patient has been admitted to the hospital, noted acute on chronic hypercapnia, hypoxic respiratory failure and mild tachycardia. The patient does have a cough, which are noted mild without any sputum expectoration. Denies symptoms of chest pain, shortness of breath. The patient has been noted increased from the baseline. Wheezing is also reported to some extent. The patient has been currently admitted to the hospital for further medical management. REVIEW OF SYSTEMS: CONSTITUTIONAL: Noted fatigue and tiredness. Symptoms of fever and chills. EYES: Denies burning, redness, or tenderness. EAR, NOSE, THROAT: No sore throat, hoarseness, otalgia, postnasal drainage or epistaxis. CARDIOVASCULAR: No anginal pain, edema, pain in the lower extremities. GASTROINTESTINAL: Dysphagia, abnormal weight loss, nausea, vomiting, diarrhea, abdominal pain, hematemesis, melena, or hematochezia. SKIN: Denies lesions, rashes except scattered bruising which has been noted chronic because of the steroids of the medication use. CENTRAL NERVOUS SYSTEM: The patient noted recent fall. The patient may be related to hypercapnia with headache, dizziness, diplopia, syncopal episodes. Remaining systems were reviewed. They were noted all negative. PAST MEDICAL HISTORY: 1. Noted with end-stage COPD. 2. Chronic hypercapnic respiratory failure and acute chronic hypoxic respiratory failure. 3. History of epistaxis. 4. History of nephrolithiasis and acute intervertebral disk disease. 5. Common variable hypogammaglobulinemia treated with IV infusions of gammaglobulin ____ base. 6. Osteoarthritis. 7. Asbestos-related lung disease. 8. Chronic anticoagulation because of the deep venous thrombosis, lower extremity. 9. History of bronchopleural fistula, left side. The patient attempted MediPort insertion. [place], [place] REPORT OF CONSULTATION NAME: LUAN PLATA UNIT #: [id number] ROOM: [facility] DOCTOR: BABAR ALBA MD BIRTHDATE: [birth year] PAST SURGICAL HISTORY: 1. MediPort insertion. 2. Left chest tube thoracostomy, bronchopleural fistula, which has been treated in [facility] VATS procedure. 3. Therapeutic bronchoscopy. 4. Lithotripsy for ureteral calculus. 5. Multiple broken bones. The patient with surgical intervention. 6. Abdominal aortic aneurysm repair with endovascular graft. FAMILY HISTORY: Noncontributory. SOCIAL HISTORY: The patient is and lives at home. He has been noted with a history of tobacco use for the patient, variable tobacco use for this patient, noted a pack of cigarettes per day and stated not using any tobacco products since his recent discharge from the hospital over a week ago. The patient was noted with history of exposure and inhalation of the asbestos as a job. MEDICATIONS: The current medication administered noted use of folic acid, vitamin D, doxepin, ibuprofen, metoprolol tartrate, oxybutynin, amitriptyline, Coumadin, warfarin, gabapentin, Pulmicort Respules, albuterol sulfate, DuoNeb and other p.r.n. medications. DRUG ALLERGY HISTORY: NOTED ALLERGY TO THE CODEINE CAUSING ITCHING. PHYSICAL EXAMINATION: GENERAL: This is a 67-year-old white male, currently noted to be awake and alert. Oxygen supplementation nasal cannula. Height of 5 feet 8 inches, weight of 144 pounds, BMI 21.7. VITAL SIGNS: The patient showed normal temperature, respiratory rate 18-20, heart rate 86-110, blood pressure 131/78 - 136/71. The pulse oxygen saturation of the patient noted 4 liters nasal cannula 98% saturation. HEENT: Head was atraumatic. Eyes nonicterus. NECK: Supple. CARDIOVASCULAR: S1, S2 is audible. LUNGS: Noted moderate decreased breath sounds in the lungs bilaterally. Expiratory wheezing, no crackles. ABDOMEN: Soft, flat, nontender, bowel sounds present. EXTREMITIES: Bruising of the extremities. The patient noted in the lower and upper extremities. There was no edema, clubbing or cyanosis. MUSCULOSKELETAL: Without any acute deformities. CENTRAL NERVOUS SYSTEM: Cranial nerves 2-12 intact. LABORATORY DATA: CBC on 11/27/2017 was noted as hemoglobin 10.8, normal WBC count and platelets. The lactic acid 1.7 noted on admission on 11/27/2017. PT/PTT normal. CMP of the patient, BUN 11, creatinine was normal. CO2 37. CT scan of the head without contrast for the patient was done, shows no acute intracranial abnormality, chronic ischemic small vessel changes. Arterial blood gas pH of 7.29, PCO2 76, PO2 122. BiPAP setting of 03/30 and arterial blood gas. [place], [place] REPORT OF CONSULTATION NAME: LUAN PLATA UNIT #: [id number] ROOM: [facility] DOCTOR: DOROTHY JENKINS MD,[facility] BIRTHDATE: [birth year] Previously, a pH of 7.31, PCO2 16, PO2 82, 4 liters nasal cannula. Chest x-ray shows hyperinflation changes of COPD. The patient without any acute pulmonary infiltration. IMPRESSION: 1. The patient will be admitted to the hospital noted with recurrent exacerbation of chronic obstructive pulmonary disease, hypercarbia and confusion. 2. History of past nicotine abuse, stating not using any tobacco products for the past several days. 3. The patient with a history of frequent falls may be related to the use of the tricyclic antidepressant for the patient at bedtime, could be the likely reason. 4. Severe debility. PLAN OF MANAGEMENT: The patient will be started on Solu-Medrol 40 mg q.8 for acute exacerbation of COPD. Continue bronchodilators administration for the patient. Changes in the medication for the patient will be done to streamline the use of the DuoNeb q. 4 hours while awake. The patient would not require any antibiotic. There was no suspicion of acute pneumonia or bronchitis. Other supportive therapy, plan of management, care plan. Additional treatment changes will be done for the patient based on the progression of the illness. Consider discontinuation of the amitriptyline for this patient. 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 The patient to discontinue in the future. Monitoring the PT/INR with chronic long-term anticoagulation use. Adjust the setting of the BiPAP for this patient as well to improve the hypercapnia, which has not been corrected with a setting and be changed to 16/10 for this patient. Repeat arterial blood gases in the next 3 hours. Other supportive therapy, plan of management. Also assess the patient for noninvasive ventilator use for the patient home setting because of recurrent hospitalization and COPD exacerbation and that will result in reduction of the hospitalization and to improve his quality of care. This will be addressed through the social service of the patient with the [facility]. Thanks for allowing me to participate in the care of this patient. BABAR DE LA CRUZ MD CM:CONSTR:REPORT OF CONSULTATION 1716 11/28/17 0237 interface
--- NOTE | ~2017-11-27 | PR ---
[place], [place] PROGRESS NOTE NAME: LUAN PLATA UNIT #: [id number] ROOM: 421 DOCTOR: ODROTHY JENKINS MD,BABAR BIRTHDATE: [birth year] DOS: 11/28/2017 PULMONARY PROGRESS NOTE SUBJECTIVE: The patient noted comfortable at this time without any distress. Reduction in symptoms of shortness breath was noted. He was started on BiPAP yesterday noted effective in improvement in the patient's mental status and the respiratory symptom. Denies symptoms of chest pain or any acute hemoptysis. OBJECTIVE: VITAL SIGNS: Normal temperature, respiratory rate 20, heart rate of 60, blood pressure 120/82. Pulse oxygen saturation recorded on 4 liters 97% saturation. HEENT: Shows head was atraumatic. Eyes nonicterus. NECK: Supple. CARDIOVASCULAR: S1, S2 audible. LUNGS: The patient was noted without any wheezing or crackles at the present time. Breaths are noted mildly decreased bilaterally. ABDOMEN: Soft, nontender. Bowel sounds present. EXTREMITIES: Without edema. IMPRESSION: 1. Resolving acute on chronic hypercapnic and hypoxic respiratory failure. 2. Acute exacerbation of chronic obstructive pulmonary disease. 3. Recurrent hospitalization. 4. Past history of nicotine dependence. PLAN OF MANAGEMENT: Continue the BiPAP at the current setting, 07/02. Continue oxygen supplementation, bronchodilators and nicotine placement patches. Solu-Medrol dose will be decreased to 40 mg b.i.d. dosing. The noninvasive ventilator was already requested. BABAR DE LA CRUZ MD CM:PNTRANS [id number] BABAR JENKINS MD 11/29/17 0045 interface
--- NOTE | ~2017-11-27 | EKG ---
[place], [place] ELECTROCARDIOGRAM REPORT NAME: LUAN PLATA UNIT #: [id number] ROOM: 421 DOCTOR: JANEEN DRAFT REPORT BIRTHDATE: [birth year] [facility] Test Date: 2017-11-27 Test Time: 14:43:13 Pat Name: LUAN PLATA Department: Room: 421 Gender: M Routeman: DARREN : 1950 Requested By: JER CODY Order Number: [id number] Reading MD: Torsten Castillo MD Measurements Intervals [place] Rate: 88 P: 82 VT: 140 QRS: 82 QRSD: 94 T: 71 QT: 350 QTc: 424 Interpretive Statements Sinus rhythm Electronically Signed On 11-30-2017 9:56:24 PDT by Torsten Castillo MD CM:EKGRPT:ELECTROCARDIOGRAM REPORT [id number] JER CODY MD EPIPHANY DRAFT REPORT JER CODY MD
--- NOTE | ~2017-11-27 | PR ---
[place], [place] PROGRESS NOTE NAME: LUAN PLATA UNIT #: [id number] ROOM: 421 DOCTOR: DOROTHY JENKINS MD,BABAR BIRTHDATE: [birth year] DOS: 11/30/2017 SUBJECTIVE: The patient noted comfortable at this time, resting on the bed. He has been showing continued reduction of the overt debility, shortness of breath and coughing as well as wheezing, all improved significantly. OBJECTIVE: VITAL SIGNS: For the patient which were recorded showed normal temperature, respiratory rate 20, heart rate 81, blood pressure 138/80. Pulse ox saturation on 4 liters nasal cannula, 96% saturation. HEENT: No acute change. NECK: Supple. CARDIOVASCULAR: S1, S2 is audible. LUNGS: Without any wheeze or crackles. ABDOMEN: Soft, nontender. EXTREMITIES: Without edema. IMPRESSION: The patient has been noted progressive improvement in the acute on chronic hypercapnic hypoxic respiratory failure, exacerbation of chronic obstructive pulmonary disease, history of nicotine abuse previously. PLAN OF TREATMENT: Noninvasive ventilator, arrangement has been made and the patient was authorized the NIV for this patient from the insurance. He could be discharged home to use the IV at home at nighttime, p.r.n. during the day. Oxygen supplementation as well. Tapering dose of prednisone and the antibiotics. Outpatient followup will be suggested for patient post-discharge in a couple of weeks. BABAR DE LA CRUZ MD CM:PNTRANS [id number] BABAR JENKINS MD 12/01/17 0011 interface
[~2017-11-27 11:27] MED LIST changes: +AYR SALINE MIST50 ML NAS; +CLOBETASOL PROP15 GM T; +Ipratropium Brom3 ML INH; +MEGACE ES625 MG/5 M PO; +MEGESTROL ACETA40 MG PO; +METOPROLOL TART50 M1 PO; +NICODERM CQ1 EAC1 TD
[2017-11-27 11:28] VITALS: BP 116/75
[2017-11-27 12:04] LABS: BASO % 0.3 % (0.0-1.0); EOS # 0.4 10*3/uL (0.0-0.4); EOS % 3.7 % (1.0-4.0); HEMATOCRIT 35.1 % (42.0-52.0); HEMOGLOBIN 10.8 g/dl (14.0-18.0); LYMPH # 1.3 10*3/uL (1.3-4.4); LYMPH % 14.2 % (27.0-41.0); MEAN CORPUSCULAR HGB 31.4 pg (27.0-31.0); MEAN CORPUSCULAR HGB CONC 30.8 g/dl (33.0-37.0); MEAN PLATELET VOLUME 10.9 fl (9.6-12.3); MONO # 0.7 10*3/uL (0.1-1.0); MONO % 7.6 % (3.0-9.0); NEUT % 73.9 % (47.0-73.0); PLATELET COUNT AUTOMATED 215 10*3/uL (130-400); RED BLOOD COUNT 3.44 10*6/uL (4.50-5.90); RED CELL DISTRI WIDTH 14.8 % (0-14.5); WHITE BLOOD COUNT 9.4 10*3/uL (4.8-10.8)
[2017-11-27 12:13] LABS: ACT PARTIAL THROMBO TIME 34.7 SECONDS (20.8-31.5); INTERNATIONAL NORM RATIO 2.3 (2.0-3.5)
[2017-11-27 12:23] LABS: ALBUMIN 2.9 gm/dl (3.1-4.5); ALKALINE PHOSPHATASE 68 U/L (45-117); BUN 11 mg/dl (7-24); CHLORIDE 98 mmol/L (98-107); POTASSIUM 3.9 mmol/L (3.5-5.1); SGOT/AST 12 IU/L (3-35); SGPT/ALT 17 U/L (12-78); SODIUM 136 mmol/L (136-145); TOTAL PROTEIN 6.5 gm/dL (6.4-8.2)
[2017-11-27 12:24] LABS: TROPONIN I < 0.015 ng/ml (<0.045)
[2017-11-27 12:48] LABS: ABG BASE EXCESS 7.3 mmol/L (-2.0-2.0); ABG HCO3 34.9 mmol/l (22-26); ABG O2 SATURATION 96.1 % (95-97); ARTERIAL BLOOD GAS PCO2 69.7 mmHg (35-45); ARTERIAL BLOOD GAS PH 7.318 (7.35-7.45); ARTERIAL BLOOD GAS PO2 82.7 mmHg (80-90)
[2017-11-27 13:38] VITALS: BP 105/60
[2017-11-27 13:50] VITALS: BP 136/71
[2017-11-27] MEDS ORDERED: DOXEPIN HCL10 MG PO (14:24)
[2017-11-27 15:41] LABS: BILIRUBIN NEGATIVE (NEGATIVE); BLOOD TRACE-INTACT (NEGATIVE); CLARITY CLEAR (CLEAR); COLOR YELLOW (YELLOW); GLUCOSE NEGATIVE (NEGATIVE); KETONE NEGATIVE (NEGATIVE); LEUKO ESTERASE NEGATIVE (NEGATIVE); NITRITE NEGATIVE (NEGATIVE)
[2017-11-27 15:47] LABS: ABG BASE EXCESS 7.6 mmol/L (-2.0-2.0); ABG HCO3 35.8 mmol/l (22-26); ABG O2 SATURATION 98.5 % (95-97); ARTERIAL BLOOD GAS PH 7.291 (7.35-7.45)
[2017-11-27 15:50] LABS: ARTERIAL BLOOD GAS PCO2 76.4 mmHg (35-45)
[2017-11-27 15:57] LABS: BACTERIA TRACE; HYALINE CAST TNTC
[2017-11-27 16:00] VITALS: BP 131/78
[2017-11-27 19:26] LABS: ABG BASE EXCESS 9.8 mmol/L (-2.0-2.0); ABG HCO3 37.1 mmol/l (22-26); ABG O2 SATURATION 95.8 % (95-97); ARTERIAL BLOOD GAS PCO2 69.7 mmHg (35-45); ARTERIAL BLOOD GAS PH 7.345 (7.35-7.45); ARTERIAL BLOOD GAS PO2 79.5 mmHg (80-90)
[2017-11-27 20:00] VITALS: BP 117/72
[2017-11-28] VITALS: BP 102/71
[2017-11-28 07:08] LABS: HEMATOCRIT 33.9 % (42.0-52.0); HEMOGLOBIN 10.5 g/dl (14.0-18.0); MEAN CELL VOLUME 99.7 fl (80.0-94.0); MEAN CORPUSCULAR HGB 30.9 pg (27.0-31.0); PLATELET COUNT AUTOMATED 224 10*3/uL (130-400); RED CELL DISTRI WIDTH 14.5 % (0-14.5); WHITE BLOOD COUNT 9.1 10*3/uL (4.8-10.8)
[2017-11-28 07:26] LABS: CHLORIDE 97 mmol/L (98-107); POTASSIUM 4.3 mmol/L (3.5-5.1); SODIUM 136 mmol/L (136-145)
[2017-11-28 07:32] LABS: ALBUMIN 2.8 gm/dl (3.1-4.5); ALKALINE PHOSPHATASE 67 U/L (45-117); BUN 10 mg/dl (7-24); CHOLESTEROL 185 mg/dL (<200); CREATININE 0.75 mg/dL (0.70-1.30); HDL CHOLESTEROL 68 mg/dl (40-60); LDL CHOLESTEROL 106 mg/dL (9-159); PHOSPHOROUS 2.3 mg/dL (2.5-4.9); SGOT/AST 10 IU/L (3-35); SGPT/ALT 16 U/L (12-78); TOTAL CELLS COUNTED 100 #CELLS; TOTAL PROTEIN 6.2 gm/dL (6.4-8.2); TRIGLYCERIDES 55 mg/dl (<150); VLDL CHOLESTEROL 11 mg/dL (6-40)
[2017-11-28 07:33] LABS: PLATELET SUFFICIENCY NORMAL (NORMAL)
[2017-11-28 08:00] VITALS: BP 120/82
[2017-11-28 12:00] VITALS: BP 111/55
[2017-11-28 16:00] VITALS: BP 117/62
[2017-11-28 20:00] VITALS: BP 138/79
[2017-11-29] VITALS: BP 134/72
[2017-11-29 07:11] LABS: INTERNATIONAL NORM RATIO 2.9 (2.0-3.5)
[2017-11-29 08:00] VITALS: BP 116/82; BP 126/64
[2017-11-29 08:01] LABS: HEMATOCRIT 32.7 % (42.0-52.0); HEMOGLOBIN 10.4 g/dl (14.0-18.0); MEAN CELL VOLUME 99.4 fl (80.0-94.0); MEAN CORPUSCULAR HGB 31.6 pg (27.0-31.0); MEAN CORPUSCULAR HGB CONC 31.8 g/dl (33.0-37.0); MEAN PLATELET VOLUME 10.9 fl (9.6-12.3); PLATELET COUNT AUTOMATED 206 10*3/uL (130-400); RED BLOOD COUNT 3.29 10*6/uL (4.50-5.90); RED CELL DISTRI WIDTH 14.7 % (0-14.5); WHITE BLOOD COUNT 12.9 10*3/uL (4.8-10.8)
[2017-11-29 08:15] LABS: ALBUMIN 2.9 gm/dl (3.1-4.5); ALKALINE PHOSPHATASE 63 U/L (45-117); BUN 11 mg/dl (7-24); CHLORIDE 98 mmol/L (98-107); CREATININE 0.77 mg/dL (0.70-1.30); POTASSIUM 3.9 mmol/L (3.5-5.1); SGOT/AST 8 IU/L (3-35); SGPT/ALT 16 U/L (12-78); SODIUM 136 mmol/L (136-145); TOTAL PROTEIN 6.3 gm/dL (6.4-8.2)
[2017-11-29 08:22] LABS: PLATELET SUFFICIENCY NORMAL (NORMAL); POLYCHROMASIA SLIGHT; TOTAL CELLS COUNTED 100 #CELLS
[2017-11-29 12:00] VITALS: BP 136/74
[2017-11-29 16:00] VITALS: BP 121/76
[2017-11-29 20:00] VITALS: BP 131/57
[2017-11-30] VITALS: BP 119/70
[2017-11-30 08:00] VITALS: BP 138/80
[2017-11-30] MEDS ORDERED: PREDNISONE10 MG PO (10:47)
== END 2017-11-30 11:09 | disposition home health service (06) | DRG 189 ==
LOC: ED 11:27 → 4E 12:54 → EDHOLD 12:54 → 4E 13:04
PROVIDERS: Emergency Medicine; Internal Medicine Critical Care Medicine; Registered Nurse
DX: J96.22 Acute and chronic respiratory failure with hypercapnia (principal); G93.41 Metabolic encephalopathy; E44.0 Moderate protein-calorie malnutrition; R65.10 Systemic inflammatory response syndrome (SIRS) of non-infectious origin without acute organ dysfunction; D80.1 Nonfamilial hypogammaglobulinemia; I50.22 Chronic systolic (congestive) heart failure; J44.1 Chronic obstructive pulmonary disease with (acute) exacerbation; Z99.81 Dependence on supplemental oxygen

== ENCOUNTER → 2017-12-22 | Outpatient (CLI) | payer MEDICARE ==
[~2017-12-22] MED LIST changes: +AMITRIPTYLINE50 MG PO; +CUBICIN500 MG IV; +DOXEPIN HCL10 MG PO; +ELIQUIS5 M1 PO; +FLONASE ALLERG9.9 ML NAS; +MELATONIN10 M6 PO; +TAMIFLU 75MG CA75 MG PO; +ZITHROMAX500 MG PO
== END | disposition home or self-care (01) ==
LOC: US 12-12 16:00
DX: I82.412 Acute embolism and thrombosis of left femoral vein (principal)

== ENCOUNTER 2018-01-20 12:45 | Inpatient (IN) | payer MEDICARE ==
[~2018-01-20] VITALS: Wt 60.9 kg
--- NOTE | ~2018-01-20 | PR ---
[place], [place] PROGRESS NOTE NAME: LUAN PLATA UNIT #: [id number] ROOM: 510 DOCTOR: VANE CALVO DO BIRTHDATE: [birth year] DOS: 01/26/2018 SUBJECTIVE: The patient was seen at the bedside. He was sleeping and was in no apparent distress. PHYSICAL EXAMINATION: VITAL SIGNS: Showed temperature at 97.8 degrees Fahrenheit, heart rate 73, respiratory rate 22, blood pressure 128/72, pulse oximetry 100% on 4 liters via nasal cannula. GENERAL APPEARANCE: The patient was responsive, cooperative and in no acute distress. HEENT: Head was normocephalic and atraumatic. No lesions or ulcerations were noted to the eyes. NECK: Trachea appears midline. CARDIOVASCULAR: Regular rate and rhythm were noted. Positive S1, S2 sounds were heard. No murmurs, rubs or gallops were appreciated. The bilateral lower extremities were without pitting edema. PULMONARY: Diminished breath sounds were auscultated. No wheezing, rhonchi or rales were heard. ABDOMEN: Soft and nontender to palpation. Bowel sounds were present. The abdomen was nondistended. EXTREMITIES: The bilateral lower extremities were without pitting edema. No clubbing, cyanosis or erythema was noted. LABORATORY DATA: CBC from today shows white count at 6.4, hemoglobin at 10.2, hematocrit at 32.6, platelets at 263. Chemistries from today show sodium at 139, potassium at 3.7, chloride at 99, bicarb at 36, BUN at 6, creatinine at 0.44, glucose at 86, calcium at 8.9, total bilirubin 0.2, AST 19, ALT 17, alkaline phosphatase 91, albumin 2.2. In terms of microbiology, most recent sputum culture shows growth for a moderate amount of yeast. IMPRESSION: 1. Chronic hypoxic respiratory failure. 2. Staphylococcus epidermidis bacteremia status post removal of a MediPort on 01/24/2018. 3. History of chronic obstructive pulmonary disease. 4. History of tobacco abuse. 5. Normocytic anemia. 6. Severe protein-calorie malnutrition. 7. History of common variable hypogammaglobulinemia. PLAN OF MANAGEMENT: The patient remains on IV vancomycin for treatment of his Staphylococcus epidermidis bacteremia and Infectious Disease is also following. The patient remains on bronchodilator therapy and has BiPAP available for his use. No changes need to be made from a pulmonary standpoint at this time. Vane Calvo DO [place], [place] PROGRESS NOTE NAME: LUAN PLATA UNIT #: [id number] ROOM: 510 DOCTOR: VANE CALVO DO BIRTHDATE: [birth year] BABAR DE LA CRUZ MD CM:CALIXTO [id number] VANE CALVO DO 01/26/18 1135 interface
--- NOTE | ~2018-01-20 | PR ---
[place], [place] PROGRESS NOTE NAME: LUAN PLATA UNIT #: [id number] ROOM: 510 DOCTOR: DOROTHY JENKINS MD,BABAR BIRTHDATE: [birth year] DOS: 01/23/2018 SUBJECTIVE: The patient noted comfortable at this time. Continue intravenous antibiotics, vancomycin. Blood culture isolating. The Staph epidermidis noted sensitive to vancomycin. The patient denies symptoms of chest pain, coughing, mild shortness breath was noted at times. He used the BiPAP intermittent in the daytime, but mostly at night. OBJECTIVE: VITAL SIGNS: For the patient which have been recorded showed normal temperature, respiratory rate 20, heart rate of 84, blood pressure 129/77. Pulse oxygen saturation recorded as 95% on 4 liters nasal cannula. HEENT: Examination shows head was atraumatic. Eyes nonicterus. CARDIOVASCULAR: S1, S2 is audible. LUNGS: The patient noted with moderate decreased breath sounds without any wheeze or crackles. ABDOMEN: Soft, nontender. Bowel sounds present. IMPRESSION: 1. Staphylococcus epidermidis bacteremia with resolving [id number] hypoxic respiratory failure. 2. Stable chronic obstructive pulmonary disease, which noted and stayed without any acute exacerbation. 3. History of nicotine dependence noted from home with intermittent tobacco use. PLAN OF TREATMENT: Continuation of the current plan with the BiPAP use, the patient's respiratory failure management and other therapies. Usual care, other supportive therapy, plan of management as previously without any changes. Other additional treatment changes will be made based on progression of the illness. BABAR DE LA CRUZ MD CM:PNTRANS [phone] BABAR JENKINS MD 01/23/18 2304 interface
--- NOTE | ~2018-01-20 | PR ---
[place], [place] PROGRESS NOTE NAME: LUAN PLATA UNIT #: [id number] ROOM: 510 DOCTOR: VANE CALVO DO BIRTHDATE: [birth year] DOS: 01/25/2018 SUBJECTIVE: The patient was seen at the bedside. He reports that his overall respiratory status was good. The patient denied fevers, chills, chest pain, nausea, vomiting, abdominal pain or any changes in bowel or bladder habits. The patient did complain of poor sleep. OBJECTIVE: VITAL SIGNS: Show temperature at 98.2 degrees Fahrenheit, heart rate at 84, respiratory rate 20, blood pressure 126/70, pulse oximetry 96% on 4 L via nasal cannula. GENERAL APPEARANCE: The patient was awake, alert, responsive, cooperative and in no acute distress. HEENT: Head was normocephalic and atraumatic. No lesions or ulcerations were noted to the eyes. NECK: Trachea appears midline. CARDIOVASCULAR: Regular rate and rhythm were noted. Positive S1 and S2 sounds were heard. No murmurs, rubs or gallops were appreciated. The bilateral lower extremities were without pitting edema. PULMONARY: Diminished breath sounds were auscultated. No wheezing, rhonchi or rales were heard. ABDOMEN: Soft and nontender to palpation. Bowel sounds are auscultated. The abdomen was nondistended. EXTREMITIES: The bilateral lower extremities were without pitting edema. No clubbing, cyanosis or erythema was noted. LABORATORY DATA: CBC from today shows white count at 7.1, hemoglobin 10.4, hematocrit 34.0, platelets 235. Chemistries from today show sodium 137, potassium 3.9, chloride 98, bicarbonate 33, BUN 6, creatinine 0.52, glucose 97, calcium 9.4. In terms of microbiology, a sputum culture is pending, but otherwise there is no change from the report dictated on 01/24/2018. IMPRESSION: 1. Chronic hypoxic respiratory failure. 2. Staphylococcus epidermidis bacteremia, status post removal of MediPort yesterday on 01/24/2018. 3. History of chronic obstructive pulmonary disease. 4. History of tobacco abuse. 5. Normocytic anemia. 6. Lymphopenia. PLAN: The patient remains on BiPAP and bronchodilator therapy and these should be continued. The Infectious Disease and General Surgery services are following and Infectious Disease recommends continued IV vancomycin and new access to be placed if blood cultures are negative for 72 hours. Pulmonary medicine will continue to follow. [place], [place] PROGRESS NOTE NAME: LUAN PLATA UNIT #: [id number] ROOM: [facility] DOCTOR: VANE CALVO DO BIRTHDATE: [birth year] Vane Calvo DO BABAR DE LA CRUZ MD CM:PNTRANS [id number] VANE CALVO DO 01/25/18 1323 interface
--- NOTE | ~2018-01-20 | PR ---
[place], [place] PROGRESS NOTE NAME: LUAN PLATA UNIT #: [id number] ROOM: 510 DOCTOR: DOROTHY JENKINS MD,BABAR BIRTHDATE: [birth year] DOS: 01/31/2018 PULMONARY ADDENDUM NOTE SUBJECTIVE: The patient was independently seen and examined in [id number] encounter. He just has a MediPort insertion, left chest, successfully without difficulty. The patient's history was confirmed. Physical examination performed. Note done by the biomedical engineering internship, was approved. The assessment and management of the patient today noted personally completed. The patient denies any cough, shortness of breath, chest pain at this time or wheezing. PHYSICAL EXAMINATION: VITAL SIGNS: Reviewed as normal. The pulse oxygen saturation was noted as 96% on 4 liter nasal cannula. LUNGS: Noted without any wheeze or crackles. ABDOMEN: Soft, nontender, bowel sounds present. EXTREMITIES: Without any acute edema. IMPRESSION: Stable respiratory status was noted at the present time with chronic hypercapnic hypoxic respiratory failure and chronic obstructive pulmonary disease. PLAN OF MANAGEMENT: No changes in the plan. Continue current therapy, plan of care as in progress. Usual care, other supportive plan of management and care. BABAR DE LA CRUZ MD CM:PNTRANS [id number] BABAR JENKINS MD 01/31/18 1653 interface
--- NOTE | ~2018-01-20 | PR ---
[place], [place] PROGRESS NOTE NAME: LUAN PLATA UNIT #: [id number] ROOM: 510 DOCTOR: DOROTHY JENKINS MD,BABRA BIRTHDATE: [birth year] DOS: 01/30/2018 SUBJECTIVE: Noted comfortable at this time, resting in the bed without any acute distress, planned for PICC line insertion as stated by the patient today. The patient was continued on intravenous vancomycin for his bacteremia with Staphylococcus epidermidis. OBJECTIVE: VITAL SIGNS: Normal temperature, respiratory rate 20, heart rate 82, blood pressure 138/84. Pulse oxygen saturation recorded on 4 liters nasal cannula 98% saturation. HEAD, EYES, EARS, NOSE, AND THROAT: Head was atraumatic. Eyes nonicterus. NECK: Supple. CARDIOVASCULAR SYSTEM: S1, S2 audible. LUNGS: Noted without any wheeze or crackles at the present time. ABDOMEN: Soft, nontender. Bowel sounds present. EXTREMITIES: Without any acute edema. IMPRESSION: Stable respiratory status was noted at the present time with COPD, chronic hypercapnic and hypoxic respiratory failure. PLAN OF THERAPY: No changes in the plan of care from pulmonary standpoint at this time. Any modification treatment change if necessary will be ordered after the bronchoscopy. BABAR DE LA CRUZ MD CM:PNTRANS [id number] BABAR JENKINS MD 01/30/18 1349 interface
--- NOTE | ~2018-01-20 | EKG ---
[place], [place] ELECTROCARDIOGRAM REPORT NAME: LUAN PLATA UNIT #: [id number] ROOM: 510 DOCTOR: JANEEN DRAFT REPORT BIRTHDATE: [birth year] [facility] Test Date: 2018-01-23 Test Time: 14:01:23 Pat Name: LUAN PLATA Department: Room: 510 1 Gender: M [employer] Supervisor: Shereen Spivey : 1950 Requested By: KAYLEY ELISE Order Number: [id number] Reading MD: Ash Ruby MD Measurements Intervals [place] Rate: 69 P: 77 NC: 135 QRS: 78 QRSD: 97 T: 67 QT: 381 QTc: 408 Interpretive Statements Sinus rhythm RSR' in V1 or V2, right VCD or RVH Compared to ECG 01/20/2018 13:03:33 Sinus tachycardia no longer present Electronically Signed On 01-23-2018 20:48:10 PDT by Ash Ruby MD CM:EKGRPT:ELECTROCARDIOGRAM REPORT [id number] KAYLEY VELASQUEZ DRAFT REPORT KAYLEY ELISE DO
--- NOTE | ~2018-01-20 | PR ---
[place], [place] PROGRESS NOTE NAME: LUAN PLATA UNIT #: [id number] ROOM: 510 DOCTOR: DOROTHY JENKINS MD,BABAR BIRTHDATE: [birth year] DOS: 01/28/2018 SUBJECTIVE: The patient has been noted comfortable at this time, used the BiPAP last night. Oxygen supplementation was used by the patient this morning. There were no symptoms of chest pain, fever or chills. Continue intravenous antibiotic as vancomycin for the medical management of bacteremia for this patient with Staphylococcus epidermidis. OBJECTIVE: VITAL SIGNS: For the patient which were recorded showed normal temperature, respiratory rate 18, heart rate 78, blood pressure 124/76, pulse oxygen saturation on 4 liters nasal cannula 96% saturation. HEENT: No acute change. CARDIOVASCULAR: S1, S2 audible. LUNGS: Without any wheezing or crackles. ABDOMEN: Soft and nontender. Bowel sounds present. EXTREMITIES: Without any acute edema. IMPRESSION: 1. The patient who has been noted currently stable from the respiratory standpoint with stable chronic hypercapnic hypoxic respiratory failure and chronic obstructive pulmonary disease. 2. Bacteremia Staphylococcus epidermidis, removal of the MediPort, currently receiving the IV vancomycin. PLAN OF TREATMENT: Continue current plan from the Pulmonary standpoint. No change in treatment will be recommended immediately. Other supportive therapy, plan of management, care plan and therapies. Usual care. BABAR DE LA CRUZ MD CM:PNTRANS [phone] BABAR JENKINS MD 01/28/18 1835 interface
--- NOTE | ~2018-01-20 | PR ---
[place], [place] PROGRESS NOTE NAME: LUAN PLATA UNIT #: [id number] ROOM: 510 DOCTOR: VANE CALVO DO BIRTHDATE: [birth year] DOS: 01/24/2018 SUBJECTIVE: The patient was seen at the bedside. He denied chest pain, nausea, abdominal pain or any changes in bowel or bladder habits. He reported that his breathing is good. He was seen prior to his scheduled removal of his MediPort. OBJECTIVE: VITAL SIGNS: Show temperature at 97.7 degrees Fahrenheit, heart rate at 75, respiratory rate at 18, blood pressure at 136/78, pulse oximetry 99% on 4 liters via nasal cannula. GENERAL APPEARANCE: The patient was awake, alert, responsive, cooperative and in no acute distress. He appears thin. HEENT: Head was normocephalic and atraumatic. No lesions or ulcerations were noted to eyes. NECK: Trachea appears midline. CARDIOVASCULAR: Positive S1, S2 sounds were heard. PULMONARY: Diminished breath sounds were auscultated, no wheezing, rhonchi or rales were appreciated. ABDOMEN: Soft and nontender to palpation. Bowel sounds were auscultated. The abdomen was nondistended. EXTREMITIES: The bilateral lower extremities were without pitting edema. No clubbing, cyanosis or erythema is noted. LABORATORY DATA: Most recent CBC from yesterday 01/23/2018, showed white count at 9.8, hemoglobin at 9.8, hematocrit 32.7, platelets 208. The sed rate was 98. The most recent chemistries from 01/24/2018, showed BUN at 8, creatinine 0.47. In terms of microbiology blood cultures obtained on admission as well as lows from 01/21/2018, showed growth for Staphylococcus epidermidis with noted sensitivity. The nares were noted to be positive for MRSA. Blood cultures obtained on 01/22/2018, and 01/23/2018 are without bacterial growth. IMPRESSION: 1. Acute on chronic hypoxic respiratory failure, resolving. 2. Staphylococcus epidermidis bacteremia. 3. History of chronic obstructive pulmonary disease. 4. History of tobacco abuse. PLAN OF MANAGEMENT: It is recommended that patient's current BiPAP be continued as well as the bronchodilators. The Infectious Disease and General Surgery services are following for the patient's bacteremia and General Surgery plans on removal of the MediPort today. Pulmonary medicine will continue to follow. Vane Calvo DO [place], [place] PROGRESS NOTE NAME: LUAN PLATA UNIT #: [id number] ROOM: [facility] DOCTOR: VANE CALVO DO BIRTHDATE: [birth year] BABAR DE LA CRUZ MD CM:PNZBIGNIEW [id number] VANE CALVO DO 01/24/18 1312 interface
--- NOTE | ~2018-01-20 | PR ---
[place], [place] PROGRESS NOTE NAME: LUAN PLATA UNIT #: [id number] ROOM: 510 DOCTOR: VANE CALVO DO BIRTHDATE: [birth year] DOS: 01/31/2018 SUBJECTIVE: The patient was seen in the PACU, following his MediPort insertion. He reported that he was feeling well. OBJECTIVE: VITAL SIGNS: Show temperature at 98.1 degrees Fahrenheit, heart rate at 63, respiratory rate at 20, blood pressure 119/70, pulse oximetry 95% on 4 liters via nasal cannula. GENERAL: The patient was responsive, cooperative, awake, alert and in no acute distress. HEENT: Head was normocephalic and atraumatic. No lesions or ulcerations were noted to the eyes. NECK: Trachea appears midline. CARDIOVASCULAR: Positive S1 and S2 sounds were heard. The bilateral lower extremities were without pitting edema. PULMONARY: No wheezing, rhonchi or rales were heard on exam. ABDOMEN: Soft, nontender to palpation. Bowel sounds were present. The abdomen was nondistended. EXTREMITIES: The bilateral lower extremities were without pitting edema. No clubbing, cyanosis or erythema was noted. LABORATORY DATA: CBC from today shows white count at 8.3, hemoglobin at 11.9, hematocrit at 38.8, platelets at 448. Chemistries from today show sodium at 139, potassium 3.8, chloride 102, bicarbonate 31, BUN 9, creatinine 0.63, glucose 88, calcium 9.8. In terms of microbiology, there are no changes compared to the dictation from 01/26/2018. IMPRESSION: 1. Chronic hypoxic respiratory failure. 2. Staphylococcus epidermidis bacteremia status post removal of a MediPort on 01/24/2018 and now with implantation of a new MediPort today 01/31/2018. 3. History of chronic obstructive pulmonary disease. 4. History of tobacco abuse. 5. Normocytic anemia. 6. Thrombocytosis. 7. History of common variable hypogammaglobulinemia. PLAN OF MANAGEMENT: The patient remains on IV vancomycin and bronchodilator therapy. The Infectious Disease service is also following. The patient has BiPAP available for his use. Again, no changes need to be made from a pulmonary standpoint at this time. Vane Calvo DO [place], [place] PROGRESS NOTE NAME: LUAN PLATA UNIT #: [id number] ROOM: [facility] DOCTOR: VANE CALVO DO BIRTHDATE: [birth year] BABAR DE LA CRUZ MD CM:PNZBIGNIEW 1328 [id number] VANE CALVO DO 01/31/18 1357 interface
--- NOTE | ~2018-01-20 | PR ---
[place], [place] PROGRESS NOTE NAME: LUAN PLATA UNIT #: [id number] ROOM: 510 DOCTOR: DOROTHY JENKINS MD,BABAR BIRTHDATE: [birth year] DOS: 01/29/2018 SUBJECTIVE: The patient noted without any acute distress this morning. No neck discomfort. The patient is resting. He has not been reported any symptoms of shortness of breath, coughing, wheezing or chest pain. He is continued on the intravenous antibiotic, vancomycin twice a day. OBJECTIVE: VITAL SIGNS: For the patient which has been recorded showed normal temperature, respiratory rate 20, heart rate 71, blood pressure 110/57. Pulse oxygen saturation on 4 liters nasal cannula 100% saturation. HEENT: Examination shows head was atraumatic. Eyes nonicterus. NECK: Supple. CARDIOVASCULAR: S1, S2 is audible. LUNGS: The patient was noted without any wheeze or crackle at the present time. ABDOMEN: Soft, nontender. Bowel sounds present. EXTREMITIES: The patient noted without any acute edema, clubbing or cyanosis. IMPRESSION: Stable respiratory status, chronic hypercapnic hypoxic respiratory failure. At the present time with bacteremia, Staph epidermidis. The patient currently treated with antibiotics. MediPort was extracted. PLAN OF TREATMENT: Continue the BiPAP and oxygen supplementation, medical management, respiratory failure. Continue usual medication of COPD. Supportive care therapy, plan of management as in progress. Other additional treatment changes to be made based on progression of the illness. Usual care as previously. BABAR DE LA CRUZ MD CM:PNTRANS 1316 1602 BABAR JENKINS MD 01/29/18 1600 interface
--- NOTE | ~2018-01-20 | PR ---
[place], [place] PROGRESS NOTE NAME: LUAN PLATA UNIT #: [id number] ROOM: 510 DOCTOR: DOROTHY JENKINS MD,BABAR BIRTHDATE: [birth year] DOS: 01/25/2018 PULMONARY ADDENDUM NOTE SUBJECTIVE: The patient independently seen and examined in jtsn-zv-[id number] encounter, history was confirmed. Physical exam performed. Labs were reviewed. Assessment and management for today's note personally completed. Note done by the medical coder was approved. The patient has been noted comfortable at this time, resting on the bed without any distress. Using BiPAP was ordered at night time and oxygen supplementation during the daytime. Continue received the bronchodilator. PHYSICAL EXAMINATION: VITAL SIGNS: For the patient noted as normal. The pulse oxygen saturation on 4 liters nasal cannula 96% saturation. HEENT: Head was atraumatic. Eyes nonicterus. CARDIOVASCULAR: S1, S2 is audible. LUNGS: Noted with decreased breath sounds without any wheezing or crackles. ABDOMEN: Soft, nontender. Bowel sounds present. EXTREMITIES: No acute edema. IMPRESSION:1. 1. Bacteremia. The patient noted with Staphylococcus epidermis, catheter related and removal of the MediPort yesterday successfully. 2. Stable chronic obstructing pulmonary disease exacerbation and respiratory failure. PLAN OF MANAGEMENT: No changes in plan of care at this time. Continue the patient's current therapy as in progress. Usual care. BABAR DE LA CRUZ MD CM:PNTRANS [phone] BABAR JENKINS MD 01/25/18 1734 interface
--- NOTE | ~2018-01-20 | PR ---
[place], [place] PROGRESS NOTE NAME: LUAN PLATA UNIT #: [id number] ROOM: 510 DOCTOR: DOROTHY JENKINS MD,BABAR BIRTHDATE: [birth year] DOS: 01/24/2018 SUBJECTIVE: The patient apparently seen and examined in [id number] encounter, history was confirmed, the labs were reviewed. The patient's assessment and management were completed for today's visit. Note done by the medical affairs leader, was approved. The patient has been noted without any acute respiratory distress, coughing or sputum expectoration. Denies symptoms of chest pain. He was planned for removal of the MediPort. The patient thought to be infected with Staphylococcus epidermidis. PHYSICAL EXAMINATION: VITAL SIGNS: Noted as normal. Pulse ox saturation noted on 4 liters nasal cannula 100% saturation. LUNGS: Noted moderate decreased breath sounds without any wheeze or crackles. ABDOMEN: Soft and nontender. Bowel sounds present. EXTREMITIES: Without any acute edema. IMPRESSION: Bacteremia, Staphylococcus epidermidis, possibly related to the MediPort. The patient has been ordered MediPort removal by the primary care attending. In the meantime, continue the patient's current therapy, plan of management and care plan. Use of the BiPAP as previously, oxygen supplementation and bronchodilators. PLAN OF MANAGEMENT: At his time, continue current therapy, plan of care, other treatment and care with other usual medical management and supportive therapy. BABAR DE LA CRUZ MD CM:PNTRANS [id number] BABAR JENKINS MD 02/06/18 0946 interface
--- NOTE | ~2018-01-20 | CON ---
[place], [place] REPORT OF CONSULTATION NAME: LUAN PLATA UNIT #: [id number] ROOM: 510 DOCTOR: DOROTHY JENKINS MDBABAR BIRTHDATE: [birth year] DOS: 01/21/2018 REASON FOR CONSULTATION: For the assessment of respiratory failure. HISTORY OF PRESENT ILLNESS: This is a 67-year-old white male known very well to me with history of end-stage COPD, the patient had chronic severe hypoxic and hypercapnic respiratory failure. The patient has been hospitalized several times in this hospital for multiple reasons usually for exacerbation of COPD, bronchitis and other symptoms. He has been admitted to the hospital. The patient brought to the Emergency Room on 01/20/2018. The patient stated that he ran out of his oxygen supplementation yesterday. He walked out of the station out to the car where he fell down. The patient was picked up by the son from the ground and brought to the hospital for further assessment. He stated that he fell down. He either hit the right side of the chest. The patient was noted to have pain in the right chest wall. The patient denies symptoms of fever or chills. Shortness of breath has been noted better. Arterial blood gas were noted with acute on chronic hypercapnic respiratory failure. He denies symptoms of wheezing. Denies any symptoms of hemoptysis. The pain was described moderate to severe, non-radiation, localized to the right chest wall noted partially improved from yesterday. REVIEW OF SYSTEMS: CONSTITUTIONAL: Fatigue and tiredness noted. Denies any symptoms of fever or chills. EYES: Denies burning, redness, or tenderness. EARS, NOSE, THROAT SYMPTOMS: Denies sore throat, hoarseness, otalgia, postnasal drainage or epistaxis. CARDIOVASCULAR: No angina pain, edema, pain of the lower extremities. GASTROINTESTINAL: Dysphagia, nausea, vomiting, diarrhea, abdominal pain, hematemesis, melena, or hematochezia. SKIN: Denies abnormal lesions or rashes. CENTRAL NERVOUS SYSTEM: Denies dizziness, headache, diplopia, syncopal episodes. Remaining systems were reviewed. They were noted to be negative. PAST MEDICAL HISTORY: The patient was with known: 1. History of end-stage COPD. 2. Chronic hypoxic respiratory failure, use of oxygen 4-5 liters nasal cannula at times. 3. Chronic hypercapnic respiratory failure. 4. History of epistaxis. 5. Intervertebral disk disease. 6. History of nephrolithiasis. 7. Common variable hypogammaglobulinemia on intravenous infusion therapy every monthly. 8. Osteoarthritis. 9. Asbestos-related lung disease. 10. History of deep venous thrombosis. The patient is on long-term anticoagulation. [place], [place] REPORT OF CONSULTATION NAME: LUAN PLATA UNIT #: [id number] ROOM: [facility] DOCTOR: DALLAS ALBA MDM BIRTHDATE: [birth year] 11. 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 SURGICAL HISTORY: 1. Insertion MediPort was done according to the patient. After that, the VATS procedure, patient successfully further management of bronchopleural fistula was attempted pneumothorax and bronchopleural fistula. 2. Therapeutic bronchoscopies. 3. Lithotripsy. 4. Multiple broken ribs as well in the past. 5. Abdominal aortic aneurysm repair with endovascular graft. FAMILY HISTORY: Unknown. SOCIAL HISTORY: The patient is and lives at home. Denies history of alcohol use, illicit drug use. Tobacco use has been reported since teenager, with intermittent tobacco cessation short period of time and resuming tobacco use. There was no history of alcohol use, illicit drug use. It was also noted inhalation of the asbestos at previous jobs. MEDICATIONS: The current medication administered today were noted use of Eliquis, nicotine replacement patches, metoprolol tartrate, oxybutynin, amitriptyline, Pulmicort Respules, gabapentin, vancomycin and some other medications. DRUG ALLERGY HISTORY: NOTED ALLERGY TO CODEINE CAUSING ITCHING. PHYSICAL EXAMINATION: GENERAL: A 67-year-old white male currently noted awake and alert without any distress. Height of 5 feet 7 inches, weight of 138 pounds, BMI 21. VITAL SIGNS: Normal temperature, respiratory rate 20, heart rate 65, blood pressure 90/50 this morning, earlier 114/91. The pulse oxygen saturation 4 liters and 90% saturation. HEENT: Head was atraumatic. Eyes nonicterus. NECK: Supple. CARDIOVASCULAR: S1, S2 audible. LUNGS: The patient noted with moderate reduction in breath sounds bilaterally. There were no wheezing or crackles. ABDOMEN: Soft, nontender. Bowel sounds present. EXTREMITIES: The patient was noted without any acute edema, clubbing or cyanosis. MUSCULOSKELETAL: Without any acute deformities. SKIN: Visible skin was noted without any lesions or rashes. LABORATORY DATA: One out of 2 blood culture noted gram-positive cocci in clusters. The second culture, no bacterial growth, second set of blood culture taken later on for the patient admitted to the hospital from the floor was so far not reported any bacterial growth or abnormal Gram-stain. Urine culture noted without any bacterial growths. The other labs for this patient. Lactic acid 2.0 yesterday. PT/PTT of patient noted normal yesterday. The arterial [place], [place] REPORT OF CONSULTATION NAME: LUAN PLATA UNIT #: [id number] ROOM: [facility] DOCTOR: DALLAS ALBA MDM BIRTHDATE: [birth year] blood gas, pH of 7.25, pCO2 of 79, pO2 of 90.5. CMP of the patient that was done yesterday normal BUN and creatinine, CO2 of 33. CBC, WBC count 17.4, hemoglobin 13, hematocrit normal, platelet count normal, 91% segmented neutrophils. The patient had a CT scan of the head and cervical spine done in the Emergency Room for assessment of any intracranial injury or head trauma or others were noted all negative findings. CBC that was done this morning was noted, WBC count normal. Hemoglobin 11. CMP for this morning, normal BUN and creatinine, CO2 of 34. Chest x-ray 1 view, which was done in the Emergency Room was reviewed shows no acute pulmonary infiltration. Change in hyperinflation were noted. MediPort noted in place. IMPRESSION: 1. The patient will be admitted to the hospital noted with a fall at home and lack of oxygen use noted with acute on chronic hypercapnic respiratory failure and acute chronic nicotine dependence. 2. Chronic obstructive pulmonary disease without evidence of acute exacerbation. 3. Bacteremia, rule out contamination versus infection. Monitor culture results. PLAN AND TREATMENT: Continue empirical use of vancomycin. Continue home medication for the COPD and other BiPAP. The patient will be continued to be used. Obtain another arterial blood gas for today's assessment resolution of the chronic hypercapnia. Other plan of management as noted in progress will be continued. Usual care, other supportive therapy, plan of care and management. Additional treatment changes will be recommended based on the progression of the illness. BABAR DE LA CRUZ MD CM:CONSTR:REPORT OF CONSULTATION 1252 02/06/18 0944 interface
--- NOTE | ~2018-01-20 | PR ---
[place], [place] PROGRESS NOTE NAME: LUAN PLATA UNIT #: [id number] ROOM: 510 DOCTOR: DOROTHY JENKINS MD,BABAR BIRTHDATE: [birth year] DOS: 01/27/2018 SUBJECTIVE: The patient noted comfortable at this time, resting in the bed without any acute distress. Denies symptoms of chest pain, coughing or any sputum expectoration. The oxygen supplementation used by the patient. He had been using the BiPAP at nighttime and sometime in the day as well. He has not been noted any symptoms of fever or chills. OBJECTIVE: VITAL SIGNS: For the patient, which has been recorded showed the temperature noted as normal, respiratory rate 20, heart rate 73, blood pressure is 119/77. Pulse oxygen saturation of the patient on 4 liters nasal cannula 97% saturation. HEENT: Showed no new change. NECK: Supple. CARDIOVASCULAR: S1, S2 audible. LUNGS: Without any wheeze or crackles. ABDOMEN: Soft, nontender. Bowel sounds present. IMPRESSION: Bacteremia, Staphylococcus epidermidis, status post removal of the MediPort. PLAN OF MANAGEMENT: The patient would be recommended about the intravenous antibiotic therapy in couple of weeks with PICC line insertion. The patient refusing to go to retirement facility. Continue the current medical management for the respiratory failure for the patient and COPD. BABAR DE LA CRUZ MD CM:PNTRANS [id number] BABAR JENKINS MD 01/27/18 1751 interface
--- NOTE | ~2018-01-20 | EKG ---
[place], [place] ELECTROCARDIOGRAM REPORT NAME: LUAN PLATA UNIT #: [id number] ROOM: 510 DOCTOR: JANEEN DRAFT REPORT BIRTHDATE: [birth year] [facility] Test Date: 2018-01-20 Test Time: 13:03:33 Pat Name: LUAN PLATA Department: Room: 510 Gender: M Tax Representative: Winsome Thompson : 1950 Requested By: JER CODY Order Number: [id number] Reading MD: Torsten Castillo MD Measurements Intervals [place] Rate: 110 P: 83 FL: 137 QRS: 81 QRSD: 101 T: 61 QT: 332 QTc: 450 Interpretive Statements Sinus tachycardia S1,S2,S3 pattern Consider right ventricular hypertrophy Baseline wander in lead(s) V1,V2,V3,V4,V5,V6 Compared to ECG 12/23/2017 15:44:56 Sinus rhythm no longer present Left posterior fascicular block no longer present Right bundle-branch block no longer present Electronically Signed On 01-22-2018 9:36:13 PDT by Torsten Castillo MD CM:EKGRPT:ELECTROCARDIOGRAM REPORT [id number] JER VERNON DRAFT REPORT JER CODY MD
--- NOTE | ~2018-01-20 | PR ---
[place], [place] PROGRESS NOTE NAME: LUAN PLATA UNIT #: [id number] ROOM: 510 DOCTOR: BABAR ALBA MD BIRTHDATE: [birth year] DOS: 01/22/2018 PULMONARY PROGRESS NOTE SUBJECTIVE: The patient was noted comfortable at this time, resting on the bed without any acute distress, has not been noted symptoms of chest pain, coughing or any sputum expectoration. OBJECTIVE: VITAL SIGNS: Normal temperature, respiratory rate 19, heart rate of 60, blood pressure 110/68. Pulse oxygen saturation of the patient recorded as 99% saturation on 4 liters cannula. HEENT: No acute change. NECK: Supple. CARDIOVASCULAR: S1, S2 is audible. LUNGS: The patient was noted without any wheezing or crackles. ABDOMEN: Soft, nontender. Bowel sounds present. EXTREMITIES: No acute edema. LABORATORY DATA: Arterial blood gas 4 liters yesterday pH of 7.30, pCO2 of 69, pO2 of 69.4 yesterday obtained. Blood culture for the patient was noted as onset gram-positive cocci in clusters and the second culture was also noted abnormal taken on the 01/20/2018 for gram-positive cocci. CBC: WBC count 12.6, hemoglobin 10.3, hematocrit 34.5, platelet count were normal. Urine culture, no bacterial growth. CMP, normal BUN and creatinine. IMPRESSION: 1. The patient's bacteremia, possibility of bacteremia versus contamination would be considered. 2. The patient with chronic obstructive pulmonary disease exacerbation, acute on chronic hypercapnic hypoxic respiratory failure, recent fatigue and weakness because of lack of oxygen use at home. PLAN OF MANAGEMENT: Continue vancomycin, bronchodilators, oxygen supplementation, use of the BiPAP. No change in treatment will be necessary. The patient does not require use of corticosteroids at this time. [place], [place] PROGRESS NOTE NAME: LUAN PLATA UNIT #: [id number] ROOM: 510 DOCTOR: BABAR ALBA MD BIRTHDATE: [birth year] BABAR DE LA CRUZ MD CM:PNTRANS [id number] BABAR JENKINS MD 02/06/18 0945 interface
--- NOTE | ~2018-01-20 | PR ---
[place], [place] PROGRESS NOTE NAME: LUAN PLATA UNIT #: [id number] ROOM: 510 DOCTOR: BABAR ALBA MD BIRTHDATE: [birth year] DOS: 01/26/2018 PULMONARY PROGRESS NOTE SUBJECTIVE: The patient is independently seen and examined with cezv-qe-viat encounter. History was confirmed, physical examination performed, and labs were reviewed. Assessment and management and completion of note done by the medical doctor md/medical director has been approved as well. The patient has been comfortably resting, using BiPAP this morning without any distress. He has not been reported respiratory problems in the last 24 hours. Bronchodilators were continued. He has been getting intravenous antibiotics as well for the Staph epidermidis bacteremia. OBJECTIVE: VITAL SIGNS: Normal temperature, respiratory rate 20, heart rate 72, blood pressure 123/70. Pulse oxygen saturation on 4 liters nasal cannula was 99% saturation. HEENT: No acute change. NECK: Supple. CARDIOVASCULAR: S1 and S2 were audible. LUNGS: The patient was noted without any wheeze or crackles. ABDOMEN: Soft and nontender. EXTREMITIES: Without any acute edema. IMPRESSION: 1. Stable respiratory failure noted at this time with acute on chronic hypercapnic hypoxic respiratory failure and chronic obstructive pulmonary disease. 2. Bacteremia with Staphylococcus epidermidis, removal of the MediPort. 3. History of common variable hypogammaglobulinemia. PLAN OF MANAGEMENT: Continuation of current therapy, plan and management at this time without any changes. Sputum culture of the patient was noted negative. Blood culture was noted without any bacterial growth, which was taken on 01/24/2018. Plan of therapy and antibiotic per direction of infectious disease specialist. Continue BiPAP, oxygen supplementation, and other medical management and usual care. [place], [place] PROGRESS NOTE NAME: LUAN PLATA UNIT #: [id number] ROOM: 510 DOCTOR: BABAR ALBA MD BIRTHDATE: [birth year] BABAR DE LA CRUZ MD CM:PNTRANS 0 0 BABAR JENKINS MD 01/26/18 0859 interface
[~2018-01-20 12:45] MED LIST changes: -CUBICIN500 MG IV; -FLONASE ALLERG9.9 ML NAS; -TAMIFLU 75MG CA75 MG PO; -ZITHROMAX500 MG PO
[2018-01-20 12:50] VITALS: BP 92/66
[2018-01-20 13:22] LABS: HEMATOCRIT 42.9 % (42.0-52.0); MEAN CORPUSCULAR HGB 30.3 pg (27.0-31.0); MEAN CORPUSCULAR HGB CONC 30.3 g/dl (33.0-37.0); MEAN PLATELET VOLUME 12.1 fl (9.6-12.3); PLATELET COUNT AUTOMATED 185 10*3/uL (130-400); RED BLOOD COUNT 4.29 10*6/uL (4.50-5.90); RED CELL DISTRI WIDTH 13.9 % (0-14.5); WHITE BLOOD COUNT 17.4 10*3/uL (4.8-10.8)
[2018-01-20 13:23] LABS: ABG BASE EXCESS 4.9 mmol/L (-2.0-2.0); ABG HCO3 33.9 mmol/l (22-26); ABG O2 SATURATION 96.1 % (95-97); ARTERIAL BLOOD GAS PH 7.257 (7.35-7.45); ARTERIAL BLOOD GAS PO2 90.5 mmHg (80-90)
[2018-01-20 13:32] LABS: ARTERIAL BLOOD GAS PCO2 79.2 mmHg (35-45)
[2018-01-20 13:35] LABS: ALKALINE PHOSPHATASE 100 U/L (45-117); BUN 6 mg/dl (7-24); CHLORIDE 99 mmol/L (98-107); CREATININE 0.83 mg/dL (0.70-1.30); POTASSIUM 3.8 mmol/L (3.5-5.1); SGOT/AST 22 IU/L (3-35); SGPT/ALT 17 U/L (12-78); SODIUM 138 mmol/L (136-145); TOTAL PROTEIN 7.8 gm/dL (6.4-8.2)
[2018-01-20 13:36] LABS: TROPONIN I < 0.015 ng/ml (<0.045)
[2018-01-20 13:42] LABS: TOTAL CELLS COUNTED 100 #CELLS
[2018-01-20 13:43] LABS: PLATELET SUFFICIENCY NORMAL (NORMAL)
[2018-01-20 14:13] VITALS: BP 99/74
[2018-01-20 15:50] LABS: BILIRUBIN NEGATIVE (NEGATIVE); CLARITY CLEAR (CLEAR); COLOR YELLOW (YELLOW); GLUCOSE NEGATIVE (NEGATIVE); KETONE NEGATIVE (NEGATIVE)
[2018-01-20 15:51] LABS: BLOOD 1+ (NEGATIVE); PH 6.5 (5.0-9.0); SPECIFIC GRAVITY 1.005 (1.005-1.030)
[2018-01-20 15:52] LABS: LEUKO ESTERASE NEGATIVE (NEGATIVE); NITRITE NEGATIVE (NEGATIVE); UROBILINOGEN 0.2 E.U./dl (0.2-1.0)
[2018-01-20 15:57] LABS: BACTERIA TRACE; WBC 0-2 wbc/hpf (0-5)
[2018-01-20 16:00] VITALS: BP 114/68
[2018-01-20 20:00] VITALS: BP 111/59
[2018-01-21] VITALS: BP 114/71
[2018-01-21 06:23] LABS: BASO % 0.3 % (0.0-1.0); EOS # 0.2 10*3/uL (0.0-0.4); EOS % 1.4 % (1.0-4.0); HEMATOCRIT 37.1 % (42.0-52.0); LYMPH # 1.1 10*3/uL (1.3-4.4); LYMPH % 10.1 % (27.0-41.0); MEAN CELL VOLUME 101.9 fl (80.0-94.0); MEAN CORPUSCULAR HGB 30.2 pg (27.0-31.0); MEAN CORPUSCULAR HGB CONC 29.6 g/dl (33.0-37.0); MEAN PLATELET VOLUME 12.1 fl (9.6-12.3); MONO # 0.9 10*3/uL (0.1-1.0); MONO % 8.4 % (3.0-9.0); NEUT # 8.6 10*3/uL (2.3-7.9); NEUT % 79.4 % (47.0-73.0); PLATELET COUNT AUTOMATED 166 10*3/uL (130-400); RED BLOOD COUNT 3.64 10*6/uL (4.50-5.90); RED CELL DISTRI WIDTH 13.9 % (0-14.5); WHITE BLOOD COUNT 10.8 10*3/uL (4.8-10.8)
[2018-01-21 06:31] LABS: ALBUMIN 2.3 gm/dl (3.1-4.5); ALKALINE PHOSPHATASE 81 U/L (45-117); BUN 9 mg/dl (7-24); CHLORIDE 101 mmol/L (98-107); CREATININE 0.58 mg/dL (0.70-1.30); SGOT/AST 82 IU/L (3-35); SGPT/ALT 17 U/L (12-78); SODIUM 139 mmol/L (136-145); TOTAL PROTEIN 6.3 gm/dL (6.4-8.2)
[2018-01-21 12:00] VITALS: BP 90/58
[2018-01-21 13:46] LABS: ABG BASE EXCESS 5.9 mmol/L (-2.0-2.0); ABG HCO3 33.6 mmol/l (22-26); ABG O2 SATURATION 93.9 % (95-97); ARTERIAL BLOOD GAS PCO2 69.5 mmHg (35-45); ARTERIAL BLOOD GAS PH 7.303 (7.35-7.45); ARTERIAL BLOOD GAS PO2 69.4 mmHg (80-90)
[2018-01-21 16:00] VITALS: BP 104/51
[2018-01-21 20:00] VITALS: BP 111/68
[2018-01-22] VITALS: BP 114/64
[2018-01-22 05:56] LABS: BASO % 0.2 % (0.0-1.0); EOS # 0.1 10*3/uL (0.0-0.4); HEMATOCRIT 34.5 % (42.0-52.0); HEMOGLOBIN 10.3 g/dl (14.0-18.0); LYMPH # 0.9 10*3/uL (1.3-4.4); LYMPH % 7.4 % (27.0-41.0); MEAN CELL VOLUME 102.1 fl (80.0-94.0); MEAN CORPUSCULAR HGB 30.5 pg (27.0-31.0); MEAN CORPUSCULAR HGB CONC 29.9 g/dl (33.0-37.0); MEAN PLATELET VOLUME 11.6 fl (9.6-12.3); MONO # 0.8 10*3/uL (0.1-1.0); MONO % 6.2 % (3.0-9.0); NEUT # 10.7 10*3/uL (2.3-7.9); NEUT % 84.7 % (47.0-73.0); PLATELET COUNT AUTOMATED 161 10*3/uL (130-400); RED BLOOD COUNT 3.38 10*6/uL (4.50-5.90); RED CELL DISTRI WIDTH 14.2 % (0-14.5); WHITE BLOOD COUNT 12.6 10*3/uL (4.8-10.8)
[2018-01-22 06:18] LABS: ALBUMIN 2.3 gm/dl (3.1-4.5); ALKALINE PHOSPHATASE 84 U/L (45-117); BUN 8 mg/dl (7-24); CHLORIDE 98 mmol/L (98-107); CREATININE 0.61 mg/dL (0.70-1.30); POTASSIUM 3.9 mmol/L (3.5-5.1); SGOT/AST 66 IU/L (3-35); SGPT/ALT 21 U/L (12-78); SODIUM 140 mmol/L (136-145); TOTAL PROTEIN 6.2 gm/dL (6.4-8.2)
[2018-01-22 08:00] VITALS: BP 100/67
[2018-01-22 12:00] VITALS: BP 110/68
[2018-01-22 16:00] VITALS: BP 110/67
[2018-01-22 20:00] VITALS: BP 124/67
[2018-01-23] VITALS: BP 129/77
[2018-01-23 06:08] LABS: BASO % 0.1 % (0.0-1.0); EOS # 0.2 10*3/uL (0.0-0.4); EOS % 2.2 % (1.0-4.0); HEMATOCRIT 32.7 % (42.0-52.0); HEMOGLOBIN 9.8 g/dl (14.0-18.0); LYMPH # 1.2 10*3/uL (1.3-4.4); LYMPH % 12.3 % (27.0-41.0); MEAN CELL VOLUME 99.4 fl (80.0-94.0); MEAN CORPUSCULAR HGB 29.8 pg (27.0-31.0); MEAN PLATELET VOLUME 11.9 fl (9.6-12.3); MONO # 0.7 10*3/uL (0.1-1.0); MONO % 7.6 % (3.0-9.0); NEUT # 7.6 10*3/uL (2.3-7.9); NEUT % 77.6 % (47.0-73.0); PLATELET COUNT AUTOMATED 208 10*3/uL (130-400); RED BLOOD COUNT 3.29 10*6/uL (4.50-5.90); RED CELL DISTRI WIDTH 13.9 % (0-14.5); WHITE BLOOD COUNT 9.8 10*3/uL (4.8-10.8)
[2018-01-23 06:13] LABS: BUN 9 mg/dl (7-24); CHLORIDE 98 mmol/L (98-107); CREATININE 0.61 mg/dL (0.70-1.30); POTASSIUM 3.6 mmol/L (3.5-5.1); SODIUM 138 mmol/L (136-145)
[2018-01-23 12:00] VITALS: BP 126/82
[2018-01-23 16:00] VITALS: BP 134/75
[2018-01-23 20:00] VITALS: BP 124/67
[2018-01-24] VITALS (8 sets, daily range): BP systolic 92–136; BP diastolic 53–78
[2018-01-24 06:35] LABS: BUN 8 mg/dl (7-24); CREATININE 0.47 mg/dL (0.70-1.30)
[2018-01-25] VITALS: BP 125/66
[2018-01-25 07:06] LABS: BASO % 0.4 % (0.0-1.0); EOS # 0.6 10*3/uL (0.0-0.4); EOS % 8.4 % (1.0-4.0); HEMOGLOBIN 10.4 g/dl (14.0-18.0); LYMPH # 1.5 10*3/uL (1.3-4.4); LYMPH % 21.5 % (27.0-41.0); MEAN CELL VOLUME 99.4 fl (80.0-94.0); MEAN CORPUSCULAR HGB 30.4 pg (27.0-31.0); MEAN CORPUSCULAR HGB CONC 30.6 g/dl (33.0-37.0); MEAN PLATELET VOLUME 11.3 fl (9.6-12.3); MONO % 13.3 % (3.0-9.0); NEUT % 56.1 % (47.0-73.0); PLATELET COUNT AUTOMATED 235 10*3/uL (130-400); RED BLOOD COUNT 3.42 10*6/uL (4.50-5.90); RED CELL DISTRI WIDTH 13.5 % (0-14.5); WHITE BLOOD COUNT 7.1 10*3/uL (4.8-10.8)
[2018-01-25 07:26] LABS: BUN 6 mg/dl (7-24); CHLORIDE 98 mmol/L (98-107); CREATININE 0.52 mg/dL (0.70-1.30); POTASSIUM 3.9 mmol/L (3.5-5.1); SODIUM 137 mmol/L (136-145)
[2018-01-25 08:00] VITALS: BP 126/70
[2018-01-25 08:56] VITALS: BP 120/78
[2018-01-25 12:00] VITALS: BP 111/66
[2018-01-25 16:00] VITALS: BP 108/50
[2018-01-25 20:00] VITALS: BP 110/59
[2018-01-26] VITALS: BP 123/70
[2018-01-26 07:06] LABS: BASO % 0.5 % (0.0-1.0); EOS # 0.5 10*3/uL (0.0-0.4); EOS % 8.2 % (1.0-4.0); HEMATOCRIT 32.6 % (42.0-52.0); HEMOGLOBIN 10.2 g/dl (14.0-18.0); LYMPH # 1.4 10*3/uL (1.3-4.4); LYMPH % 21.1 % (27.0-41.0); MEAN CELL VOLUME 96.7 fl (80.0-94.0); MEAN CORPUSCULAR HGB 30.3 pg (27.0-31.0); MEAN CORPUSCULAR HGB CONC 31.3 g/dl (33.0-37.0); MEAN PLATELET VOLUME 10.8 fl (9.6-12.3); MONO % 15.7 % (3.0-9.0); NEUT # 3.5 10*3/uL (2.3-7.9); NEUT % 54.2 % (47.0-73.0); PLATELET COUNT AUTOMATED 263 10*3/uL (130-400); RED BLOOD COUNT 3.37 10*6/uL (4.50-5.90); RED CELL DISTRI WIDTH 13.5 % (0-14.5); WHITE BLOOD COUNT 6.4 10*3/uL (4.8-10.8)
[2018-01-26 07:25] LABS: ALBUMIN 2.2 gm/dl (3.1-4.5); BUN 8 mg/dl (7-24); CHLORIDE 99 mmol/L (98-107); POTASSIUM 3.7 mmol/L (3.5-5.1); SODIUM 139 mmol/L (136-145)
[2018-01-26 07:29] LABS: ALKALINE PHOSPHATASE 91 U/L (45-117); CREATININE 0.44 mg/dL (0.70-1.30); SGOT/AST 19 IU/L (3-35); SGPT/ALT 17 U/L (12-78); TOTAL PROTEIN 6.3 gm/dL (6.4-8.2)
[2018-01-26 08:00] VITALS: BP 128/72
[2018-01-26 08:54] VITALS: BP 130/70
[2018-01-26 12:00] VITALS: BP 118/69
[2018-01-26 16:00] VITALS: BP 135/77
[2018-01-26 20:00] VITALS: BP 150/80
[2018-01-27] VITALS: BP 129/77
[2018-01-27 08:00] VITALS: BP 119/77
[2018-01-27 09:27] LABS: BASO # 0.1 10*3/uL (0.0-0.1); BASO % 0.8 % (0.0-1.0); EOS # 0.5 10*3/uL (0.0-0.4); EOS % 7.2 % (1.0-4.0); HEMATOCRIT 35.9 % (42.0-52.0); HEMOGLOBIN 11.1 g/dl (14.0-18.0); LYMPH # 1.3 10*3/uL (1.3-4.4); LYMPH % 19.4 % (27.0-41.0); MEAN CELL VOLUME 96.5 fl (80.0-94.0); MEAN CORPUSCULAR HGB 29.8 pg (27.0-31.0); MEAN CORPUSCULAR HGB CONC 30.9 g/dl (33.0-37.0); MEAN PLATELET VOLUME 10.2 fl (9.6-12.3); MONO # 1.1 10*3/uL (0.1-1.0); MONO % 16.3 % (3.0-9.0); NEUT # 3.7 10*3/uL (2.3-7.9); PLATELET COUNT AUTOMATED 322 10*3/uL (130-400); RED BLOOD COUNT 3.72 10*6/uL (4.50-5.90); RED CELL DISTRI WIDTH 13.6 % (0-14.5); WHITE BLOOD COUNT 6.6 10*3/uL (4.8-10.8)
[2018-01-27 09:46] LABS: ALBUMIN 2.5 gm/dl (3.1-4.5); ALKALINE PHOSPHATASE 109 U/L (45-117); BUN 7 mg/dl (7-24); CHLORIDE 99 mmol/L (98-107); CREATININE 0.55 mg/dL (0.70-1.30); POTASSIUM 3.4 mmol/L (3.5-5.1); SGOT/AST 21 IU/L (3-35); SGPT/ALT 19 U/L (12-78); SODIUM 139 mmol/L (136-145); TOTAL PROTEIN 6.6 gm/dL (6.4-8.2)
[2018-01-27 12:00] VITALS: BP 125/78
[2018-01-27 16:00] VITALS: BP 124/78
[2018-01-27 20:00] VITALS: BP 113/97
[2018-01-28] VITALS: BP 160/89
[2018-01-28 07:15] LABS: BASO # 0.1 10*3/uL (0.0-0.1); BASO % 0.8 % (0.0-1.0); EOS # 0.6 10*3/uL (0.0-0.4); EOS % 7.6 % (1.0-4.0); HEMATOCRIT 33.5 % (42.0-52.0); HEMOGLOBIN 10.5 g/dl (14.0-18.0); LYMPH # 1.3 10*3/uL (1.3-4.4); LYMPH % 16.3 % (27.0-41.0); MEAN CELL VOLUME 94.6 fl (80.0-94.0); MEAN CORPUSCULAR HGB 29.7 pg (27.0-31.0); MEAN CORPUSCULAR HGB CONC 31.3 g/dl (33.0-37.0); MEAN PLATELET VOLUME 10.6 fl (9.6-12.3); MONO # 1.1 10*3/uL (0.1-1.0); MONO % 14.4 % (3.0-9.0); NEUT # 4.7 10*3/uL (2.3-7.9); NEUT % 60.4 % (47.0-73.0); PLATELET COUNT AUTOMATED 361 10*3/uL (130-400); RED BLOOD COUNT 3.54 10*6/uL (4.50-5.90); RED CELL DISTRI WIDTH 13.7 % (0-14.5); WHITE BLOOD COUNT 7.8 10*3/uL (4.8-10.8)
[2018-01-28 07:47] LABS: ALBUMIN 2.5 gm/dl (3.1-4.5); ALKALINE PHOSPHATASE 111 U/L (45-117); BUN 8 mg/dl (7-24); CHLORIDE 99 mmol/L (98-107); CREATININE 0.56 mg/dL (0.70-1.30); POTASSIUM 3.6 mmol/L (3.5-5.1); SGOT/AST 19 IU/L (3-35); SGPT/ALT 19 U/L (12-78); SODIUM 139 mmol/L (136-145); TOTAL PROTEIN 6.5 gm/dL (6.4-8.2)
[2018-01-28 12:00] VITALS: BP 124/76
[2018-01-28 16:00] VITALS: BP 118/78
[2018-01-28 20:00] VITALS: BP 133/78
[2018-01-29] VITALS: BP 127/71
[2018-01-29 06:40] LABS: BASO % 0.5 % (0.0-1.0); EOS # 0.4 10*3/uL (0.0-0.4); EOS % 5.9 % (1.0-4.0); HEMATOCRIT 36.3 % (42.0-52.0); HEMOGLOBIN 11.3 g/dl (14.0-18.0); LYMPH # 1.7 10*3/uL (1.3-4.4); LYMPH % 22.8 % (27.0-41.0); MEAN CELL VOLUME 95.8 fl (80.0-94.0); MEAN CORPUSCULAR HGB 29.8 pg (27.0-31.0); MEAN CORPUSCULAR HGB CONC 31.1 g/dl (33.0-37.0); MEAN PLATELET VOLUME 10.6 fl (9.6-12.3); MONO # 1.1 10*3/uL (0.1-1.0); MONO % 14.2 % (3.0-9.0); NEUT # 4.2 10*3/uL (2.3-7.9); NEUT % 56.2 % (47.0-73.0); PLATELET COUNT AUTOMATED 407 10*3/uL (130-400); RED BLOOD COUNT 3.79 10*6/uL (4.50-5.90); RED CELL DISTRI WIDTH 13.8 % (0-14.5); WHITE BLOOD COUNT 7.5 10*3/uL (4.8-10.8)
[2018-01-29 07:06] LABS: ALBUMIN 2.6 gm/dl (3.1-4.5); ALKALINE PHOSPHATASE 126 U/L (45-117); BUN 9 mg/dl (7-24); CHLORIDE 100 mmol/L (98-107); CREATININE 0.61 mg/dL (0.70-1.30); POTASSIUM 3.7 mmol/L (3.5-5.1); SGOT/AST 32 IU/L (3-35); SGPT/ALT 29 U/L (12-78); SODIUM 140 mmol/L (136-145); TOTAL PROTEIN 7.1 gm/dL (6.4-8.2)
[2018-01-29 08:00] VITALS: BP 110/57
[2018-01-29 12:00] VITALS: BP 109/75
[2018-01-29 16:00] VITALS: BP 109/74
[2018-01-29 20:00] VITALS: BP 117/78
[2018-01-30] VITALS: BP 122/69
[2018-01-30 08:00] VITALS: BP 115/60; BP 138/84
[2018-01-30 12:00] VITALS: BP 102/58
[2018-01-30 16:00] VITALS: BP 105/82
[2018-01-30 20:00] VITALS: BP 120/76
[2018-01-31] VITALS (9 sets, daily range): BP systolic 112–132; BP diastolic 65–89
[2018-01-31 07:02] LABS: BASO # 0.1 10*3/uL (0.0-0.1); BASO % 0.6 % (0.0-1.0); EOS # 0.4 10*3/uL (0.0-0.4); EOS % 5.3 % (1.0-4.0); HEMATOCRIT 38.8 % (42.0-52.0); HEMOGLOBIN 11.9 g/dl (14.0-18.0); LYMPH # 2.2 10*3/uL (1.3-4.4); LYMPH % 26.9 % (27.0-41.0); MEAN CELL VOLUME 96.3 fl (80.0-94.0); MEAN CORPUSCULAR HGB 29.5 pg (27.0-31.0); MEAN CORPUSCULAR HGB CONC 30.7 g/dl (33.0-37.0); MEAN PLATELET VOLUME 10.7 fl (9.6-12.3); MONO % 12.5 % (3.0-9.0); NEUT # 4.5 10*3/uL (2.3-7.9); NEUT % 54.2 % (47.0-73.0); PLATELET COUNT AUTOMATED 448 10*3/uL (130-400); RED BLOOD COUNT 4.03 10*6/uL (4.50-5.90); RED CELL DISTRI WIDTH 13.8 % (0-14.5); WHITE BLOOD COUNT 8.3 10*3/uL (4.8-10.8)
[2018-01-31 07:10] LABS: BUN 9 mg/dl (7-24); CHLORIDE 102 mmol/L (98-107); CREATININE 0.63 mg/dL (0.70-1.30); POTASSIUM 3.8 mmol/L (3.5-5.1); SODIUM 139 mmol/L (136-145)
[2018-01-31] MEDS ORDERED: CUBICIN500 MG IV (16:04)
[2018-03-04] MEDS ORDERED: DOXEPIN HCL10 MG PO (12:10)
[2018-03-04] MEDS ORDERED: FLONASE ALLERG9.9 ML NAS (12:11)
[2018-03-06] MEDS ORDERED: TAMIFLU 75MG CA75 MG PO (15:28)
[2018-03-06] MEDS ORDERED: ZITHROMAX500 MG PO (15:28)
[2018-03-06] MEDS ORDERED: PREDNISONE10 MG PO (15:28)
== END 2018-01-31 16:00 | disposition home health service (06) | DRG 981 ==
LOC: ED 12:45 → 5E 14:14 → EDHOLD 14:14 → 5E 14:18
PROVIDERS: Emergency Medicine; Family Medicine; Internal Medicine; Internal Medicine Critical Care Medicine; Registered Nurse; Student in an Organized Health Care Education/Training Program
PROC: 5A09357 Assistance with Respiratory Ventilation, Less than 24 Consecutive Hours, Continuous Positive Airway Pressure (ICD-10-PCS; principal; 2018-01-20)
PROC: 5A09357 Assistance with Respiratory Ventilation, Less than 24 Consecutive Hours, Continuous Positive Airway Pressure (ICD-10-PCS; 2018-01-21)
PROC: 0JPT0WZ Removal of Totally Implantable Vascular Access Device from Trunk Subcutaneous Tissue and Fascia, Open Approach (ICD-10-PCS; 2018-01-24)
PROC: 05PYX3Z Removal of Infusion Device from Upper Vein, External Approach (ICD-10-PCS; 2018-01-24)
PROC: B547ZZA Ultrasonography of Left Subclavian Vein, Guidance (ICD-10-PCS; 2018-01-31)
PROC: B5171ZA Fluoroscopy of Left Subclavian Vein using Low Osmolar Contrast, Guidance (ICD-10-PCS; 2018-01-31)
PROC: 05HY33Z Insertion of Infusion Device into Upper Vein, Percutaneous Approach (ICD-10-PCS; 2018-01-31)
PROC: 0JH60WZ Insertion of Totally Implantable Vascular Access Device into Chest Subcutaneous Tissue and Fascia, Open Approach (ICD-10-PCS; 2018-01-31)
DX: T80.218A Other infection due to central venous catheter, initial encounter (principal); A41.9 Sepsis, unspecified organism; J96.22 Acute and chronic respiratory failure with hypercapnia; E43 Unspecified severe protein-calorie malnutrition; J96.21 Acute and chronic respiratory failure with hypoxia; R65.20 Severe sepsis without septic shock; G93.40 Encephalopathy, unspecified; J44.1 Chronic obstructive pulmonary disease with (acute) exacerbation; D68.59 Other primary thrombophilia; D80.1 Nonfamilial hypogammaglobulinemia; I82.509 Chronic embolism and thrombosis of unspecified deep veins of unspecified lower extremity; I50.22 Chronic systolic (congestive) heart failure; G89.29 Other chronic pain; M54.9 Dorsalgia, unspecified; F32.9 Major depressive disorder, single episode, unspecified; I11.0 Hypertensive heart disease with heart failure; R29.6 Repeated falls; F41.1 Generalized anxiety disorder; G62.9 Polyneuropathy, unspecified; E55.9 Vitamin D deficiency, unspecified; D53.9 Nutritional anemia, unspecified; B95.62 Methicillin resistant Staphylococcus aureus infection as the cause of diseases classified elsewhere; W18.39XA Other fall on same level, initial encounter; Y83.8 Other surgical procedures as the cause of abnormal reaction of the patient, or of later complication, without mention of misadventure at the time of the procedure; Y99.8 Other external cause status; Z99.81 Dependence on supplemental oxygen; Z88.6 Allergy status to analgesic agent; Z79.899 Other long term (current) drug therapy; Z87.01 Personal history of pneumonia (recurrent); Z82.49 Family history of ischemic heart disease and other diseases of the circulatory system; Z72.0 Tobacco use; Y93.89 Activity, other specified; Y92.89 Other specified places as the place of occurrence of the external cause; Z68.21 Body mass index [BMI] 21.0-21.9, adult

== ENCOUNTER 2018-04-13 15:32 | Inpatient (IN) | payer MEDICARE ==
[~2018-04-13] VITALS: Ht 173 cm; Wt 61.0 kg
[2018-04-13] VITALS (47 sets, daily range): BP systolic 74–128; BP diastolic 35–77
--- NOTE | ~2018-04-13 | EKG ---
[place], [place] ELECTROCARDIOGRAM REPORT NAME: LUAN PLATA UNIT #: [id number] ROOM: [facility] DOCTOR: JANEEN DRAFT REPORT BIRTHDATE: [birth year] [facility] Test Date: 2018-04-13 Test Time: 16:16:53 Pat Name: LUAN PLATA Department: Room: [facility] Gender: M Greenhouse Grower: Regina Diallo : 1950 Requested By: JER CODY Order Number: [id number] Reading MD: Ash Ruby MD Measurements Intervals [place] Rate: 107 P: 77 [place]: 135 QRS: 60 QRSD: 123 T: 50 QT: 383 QTc: 511 Interpretive Statements Sinus tachycardia Right bundle branch block Compared to ECG 03/04/2018 11:43:06 Left posterior fascicular block no longer present Electronically Signed On 04-14-2018 12:44:03 PST by Ash Ruby MD CM:EKGRPT:ELECTROCARDIOGRAM REPORT [id number] 1244 JER VERNON DRAFT REPORT JER CODY MD
--- NOTE | ~2018-04-13 | EKG ---
[place], [place] ELECTROCARDIOGRAM REPORT NAME: LUAN PLATA UNIT #: [id number] ROOM: [facility] DOCTOR: JANEEN DRAFT REPORT BIRTHDATE: [birth year] [facility] Test Date: 2018-04-14 Test Time: 01:23:09 Pat Name: LUAN PLATA Department: Room: [place] [address] Gender: M Wet Pour Supervisor: Regina Diallo : 1950 Requested By: MELLY BRASHER Order Number: [id number] Reading MD: Ash Ruby MD Measurements Intervals [place] Rate: 135 P: 71 MT: 160 QRS: -71 QRSD: 128 T: 24 QT: 327 QTc: 491 Interpretive Statements Sinus tachycardia Right bundle branch block Nonspecific T abnrm, anterolateral leads No change from earlier ECG this date Electronically Signed On 04-14-2018 13:00:56 PST by Ash Ruby MD CM:EKGRPT:ELECTROCARDIOGRAM REPORT [id number] MELLY VELASQUEZ DRAFT REPORT MELLY BRASHER DO
--- NOTE | ~2018-04-13 | CON ---
[place], [place] REPORT OF CONSULTATION NAME: LUAN PLATA UNIT #: [id number] ROOM: [facility] DOCTOR: BABAR ALBA MD BIRTHDATE: [birth year] DOS: 04/14/2018 PULMONARY CONSULTATION, EVALUATION AND MANAGEMENT REASON FOR CONSULTATION: Assess the patient's current acute respiratory failure and unresponsiveness. HISTORY OF PRESENT ILLNESS. This is a 67-year-old white male patient known with a history of COPD with chronic oxygen dependency, hypercapnia and others. The patient history was essentially review of the medical record documentation. During the current hospitalization, history could not be obtained of this patient because lack of current response and the patient noted completely nonresponsive. The patient has been seen in the Emergency Room on 04/11/2018 and assessed at that time for a recent fall that occurred at home. The patient was sent back home and advised to return to the Emergency Room in case of any difficulty or other problem. The patient was brought to the hospital. The patient has been noted unresponsive at home with progressive confusion. He was also noted with oxygen desaturation of 70%, oxygen supplementation at home use of oxygen. He was started on 100% nonrebreather mask. The patient brought to the hospital. The patient was not noted responsive. He has been intubated and started on mechanical ventilation. The patient currently has been reported completely unresponsive this morning. The patient was initially given sedation with intravenous Diprivan, which has been noted off over about an hour. The patient still does not respond to vocal commands. He was also noted with hypotension as well. The patient has been given about 6.5 liters of intravenous fluid since hospitalization. His urinary output noted to decrease. He has been noted lactic acidosis as well as hypotension, currently resolved. The patient receiving intravenous Levophed for further medical management of the hypotension. The mechanical ventilation was continued for severe hypoxemia that the patient noted since admission. The oxygen supplementation currently given as 100% oxygen supplementation. The PEEP was 10 cm of water, which was started last night as the patient previous noted difficulty of oxygenation. The bedside assessment on mechanical ventilation done this morning of assessment as well. The urine drug toxicology noted positive benzodiazepine and opiates, I believe his own medications use from home. REVIEW OF SYSTEMS: Cannot be completed since the patient currently intubated, noted on mechanical ventilation. PAST MEDICAL HISTORY: 1. End-stage COPD. 2. The patient with chronic hypercapnic respiratory failure and acute chronic hypoxic respiratory failure, use of oxygen supplementation up to 4 liters nasal cannula. 3. MediPort related gram-positive cocci bacteremia, Staph species, which has been treated with removal of the MediPort and antibiotics administration. 4. Chronic nicotine dependence, continues to smoke cigarettes. 5. History of common variable hypogammaglobulinemia, treated with intravenous monthly infusions of gammaglobulin. 6. Past history of mediastinal lymphadenopathy that were resolved. [place], [place] REPORT OF CONSULTATION NAME: LUAN PLATA UNIT #: [id number] ROOM: [facility] DOCTOR: DOROTHY JENKINS MD,[facility] BIRTHDATE: [birth year] 7. Epistaxis. 8. Nephrolithiasis. 9. Lower back pain. 10. Osteoarthritis. 11. Asbestos-related lung disease. 12. Deep venous thrombosis of lower extremity with chronic anticoagulation. 13. 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 PAST SURGICAL HISTORY: 1. Right MediPort insertion and subsequent removal. 2. Chest tube thoracostomy bronchopleural fistula on the left side and repaired surgically with bronchopleural fistula. 3. Therapeutic bronchoscopy. 4. Lithotripsy for the ureteral calculus. 5. Multiple broken bones previous surgical intervention in the past. 6. Abdominal aortic aneurysm repair with endovascular stent. SOCIAL HISTORY: The patient is , lives at home. He has been known with tobacco use, a pack or more of cigarettes per day at times, started as a teenager sometimes patient smokes only few cigarettes a day. No alcohol use or illicit drug use reported. FAMILY HISTORY: Unknown. CURRENT MEDICATIONS: Administered for the patient on this admission were noted as use of Lovenox 60 mg subq b.i.d., Protonix, Solu-Medrol 40 mg b.i.d., DuoNeb q. 4 hour, norepinephrine, vancomycin, Zosyn, Levaquin, IV Versed and Diprivan p.r.n. for sedation. DRUG ALLERGIES: ALLERGY TO THE CODEINE PHOSPHATE CAUSING ITCHING. PHYSICAL EXAMINATION: GENERAL: A 67-year-old white male. Height 5 feet 8 inches, weight 234 pounds, BMI 20, unresponsive to vocal commands and painful stimuli. VITAL SIGNS: Temperature elevated rectally 102 degree Fahrenheit and with temperature 99.2 degree Fahrenheit oral temperature recorded. The blood pressure was recorded as a 98/62-100/64. The heart rate ranged between 124-130 beats per minute. The patient atrial tachycardia. Respiratory rate, the patient recorded was noted at 28, sat on the mechanical ventilator, respiratory rate of 16. The pulse oxygen saturation recorded as 95% saturation. HEENT: Examination shows head was atraumatic. He remained orally intubated, orogastric tube is in place. NECK: Supple. CARDIOVASCULAR: S1, S2 audible. LUNGS: Moderate reduction in breath sounds bilaterally. ABDOMEN: Absent bowel sounds at this time. There was no distention noted. EXTREMITIES: The patient noted chronic changes with scattered bruising, medication related. VISIBLE SKIN: Dryness of the skin. There was no edema. [place], [place] REPORT OF CONSULTATION NAME: LUAN PLATA UNIT #: [id number] ROOM: [facility] DOCTOR: DALLAS ALBA MDM BIRTHDATE: [birth year] MUSCULOSKELETAL: Without acute deformities. CENTRAL NERVOUS: Unresponsiveness. LABORATORY DATA: CT scan of the head for that was done on 04/11/2018 essentially was noted no acute intracranial abnormalities at that time. The chest x-ray that was done in the Emergency Room on admission was noted with endotracheal tube tip about 3 cm above the beatriz level, diffuse pulmonary infiltration noted involving the right lung, and small patchy infiltration in the left lower was also seen. Diffuse COPD changes and emphysema. Chest x-ray that was repeated later shows large area was noted under the diaphragm on the left side with colonic distention. Worsening of the consolidation, infiltration was noted. Chest x-ray repeated again done this morning was reviewed shows progressive worsening of the pulmonary infiltration. The blood culture from 04/11/2018 was taken during his ER assessment was noted no bacterial growth. Arterial blood gas pH of 7.22, pCO2 of 80, pO2 of 77 on mechanical ventilation on admission. Ethyl alcohol level noted less than 3. PT, PTT on admission. PT/INR 1.3, PTT 33 related to his medication use and anticoagulation as Eliquis. CMP on 04/13/2018, BUN normal, creatinine was normal. CBC, WBC count normal, hemoglobin 11.2, hematocrit 37.8, platelet count was normal. Lactic acid has been noted variably elevated 7.3 and 4.0. Endotracheal aspirate from yesterday, pending cultures, Gram stain, many white blood cells with many gram-negative bacilli, few gram-positive cocci in pairs and clusters. The arterial blood gas of that was done this morning, pH of 7.14, pCO2 of 74, pO2 of 72.5. CMP this morning, BUN 25, creatinine was normal. Sodium 146, CO2 of 30. Troponin normal in the last 24 hours. CBC this morning, WBC count 18.2, hemoglobin 13.1, hematocrit 45.3, platelet count 27.000. IMPRESSION: 1. The patient with current unresponsive, possible anoxic brain injury, metabolic encephalopathy would be considered. 2. Acute severe sepsis with septic shock was also noted. 3. The patient with acute respiratory distress syndrome as well. 4. Acute pneumonia, most likely related to aspiration. 5. Rule out abdominal problem with chronic distention with small-bowel obstruction, perforation or other etiologies remains in consideration. 6. Lactic acid related to the above and hypoperfusion and may be relating to the abdominal problem with ischemic colitis to be considered at this time. 7. Chronic obstructive pulmonary disease without any evidence of acute significant exacerbation. 8. Chronic anticoagulation with past history of thromboembolism. PLAN OF MANAGEMENT: The patient has been continued on vasopressor to maintain a mean arterial pressure of 65 or greater. The patient to prevent fluid overload. Some Vent changes have been made for the patient. The PEEP for more than 10 appeared to resulting in oxygen desaturation to the PEEP of 10 will be continued. If the hypercapnia will persist, intravenous infusion of bicarbonate. Consider patient's transfer to tertiary care facility for the medical management, ARDS and other abnormalities. Overall prognosis remains guarded at the present time. The patient continued to remain a full code and per family members, they wished the patient to be transferred to another [place], [place] REPORT OF CONSULTATION NAME: LUAN PLATA UNIT #: [id number] ROOM: [facility] DOCTOR: DALLAS ALBA MDM BIRTHDATE: [birth year] facility. Usual care, other therapy, plan of management, care plan. Monitoring of the vital organ. Ventilator bundle management. Keep the patient off sedation since he has noted unresponsive, sedation is not needed at the present time. The plateau pressure on the mechanical ventilator, noted about 18-20, current PEEP of 10 cm of water, tidal volume noted with ARDS management protocol with respiratory rate of 28. Other plan of therapy and changes in medical management will be made based on progression of illness with repeat arterial blood gases. Total time in pulmonary critical care evaluation and management was 45 minutes. BBAAR DE LA CRUZ MD CM:CONSTR:REPORT OF CONSULTATION [id number] 04/14/18 2005 interface
[~2018-04-13 15:32] MED LIST changes: +CUBICIN500 MG IV; +FLONASE ALLERG9.9 ML NAS; +TAMIFLU 75MG CA75 MG PO; +ZITHROMAX500 MG PO
[2018-04-13 16:15] LABS: BILIRUBIN NEGATIVE (NEGATIVE); BLOOD 2+ (NEGATIVE); CLARITY CLEAR (CLEAR); COLOR YELLOW (YELLOW); GLUCOSE NEGATIVE (NEGATIVE); KETONE NEGATIVE (NEGATIVE); LEUKO ESTERASE NEGATIVE (NEGATIVE); NITRITE NEGATIVE (NEGATIVE); SPECIFIC GRAVITY >= 1.030 (1.005-1.030); UROBILINOGEN 0.2 E.U./dl (0.2-1.0)
[2018-04-13 16:16] LABS: ABG BASE EXCESS 2.8 mmol/L (-2.0-2.0); ABG HCO3 32.1 mmol/l (22-26); ABG O2 SATURATION 94.9 % (95-97); ARTERIAL BLOOD GAS PH 7.225 (7.35-7.45); ARTERIAL BLOOD GAS PO2 77.7 mmHg (80-90)
[2018-04-13 16:21] LABS: ARTERIAL BLOOD GAS PCO2 80.7 mmHg (35-45)
[2018-04-13 16:45] LABS: MUCOUS TRACE
[2018-04-13 16:51] LABS: HEMATOCRIT 37.8 % (42.0-52.0); HEMOGLOBIN 11.2 g/dl (14.0-18.0); MEAN CELL VOLUME 98.4 fl (80.0-94.0); MEAN CORPUSCULAR HGB 29.2 pg (27.0-31.0); MEAN CORPUSCULAR HGB CONC 29.6 g/dl (33.0-37.0); MEAN PLATELET VOLUME 12.2 fl (9.6-12.3); PLATELET COUNT AUTOMATED 201 10*3/uL (130-400); RED BLOOD COUNT 3.84 10*6/uL (4.50-5.90); RED CELL DISTRI WIDTH 15.4 % (0-14.5); WHITE BLOOD COUNT 6.1 10*3/uL (4.8-10.8)
[2018-04-13 17:00] LABS: ACT PARTIAL THROMBO TIME 33.9 SECONDS (20.8-31.5); INTERNATIONAL NORM RATIO 1.3 (2.0-3.5)
[2018-04-13 17:08] LABS: ALBUMIN 1.9 gm/dl (3.1-4.5); ALKALINE PHOSPHATASE 74 U/L (45-117); BUN 24 mg/dl (7-24); CHLORIDE 109 mmol/L (98-107); CREATININE 0.72 mg/dL (0.70-1.30); POTASSIUM 3.6 mmol/L (3.5-5.1); SGOT/AST 19 IU/L (3-35); SGPT/ALT 8 U/L (12-78); SODIUM 145 mmol/L (136-145); TOTAL PROTEIN 5.1 gm/dL (6.4-8.2)
[2018-04-13 17:09] LABS: TROPONIN I < 0.015 ng/ml (<0.045)
[2018-04-13 17:16] LABS: PLATELET SUFFICIENCY NORMAL (NORMAL); TOTAL CELLS COUNTED 100 #CELLS
[2018-04-13 17:17] LABS: URINE AMPHETAMINES < 1000 (1000ng/ml); URINE BARBITURATES < 200 (200ng/ml); URINE BENZODIAZEPINES > 200 (200ng/ml); URINE CANNABINOIDS (THC) < 50 (50ng/ml); URINE COCAINE < 300 (300ng/ml); URINE METHADONE < 300 (300ng/ml); URINE OPIATES > 300 (300ng/ml)
[2018-04-13 17:24] LABS: URINE PHENCYCLIDINE < 25 (25ng/ml)
[2018-04-13 20:18] LABS: ABG BASE EXCESS -1.1 mmol/L (-2.0-2.0); ABG HCO3 26.9 mmol/l (22-26); ABG O2 SATURATION 89.8 % (95-97); ARTERIAL BLOOD GAS PCO2 62.7 mmHg (35-45); ARTERIAL BLOOD GAS PH 7.254 (7.35-7.45)
[2018-04-14] VITALS (70 sets, daily range): BP systolic 60–132; BP diastolic 0–71
[2018-04-14 06:04] LABS: ALBUMIN 1.7 gm/dl (3.1-4.5); ALKALINE PHOSPHATASE 67 U/L (45-117); BUN 25 mg/dl (7-24); CHLORIDE 111 mmol/L (98-107); CREATININE 1.03 mg/dL (0.70-1.30); POTASSIUM 4.3 mmol/L (3.5-5.1); SGOT/AST 19 IU/L (3-35); SGPT/ALT 10 U/L (12-78); SODIUM 146 mmol/L (136-145); TOTAL PROTEIN 5.5 gm/dL (6.4-8.2)
[2018-04-14 06:09] LABS: HEMOGLOBIN 13.1 g/dl (14.0-18.0); MEAN CELL VOLUME 100.4 fl (80.0-94.0); MEAN CORPUSCULAR HGB CONC 28.9 g/dl (33.0-37.0); NUCLEATED RED BLOOD CELL 0.1 10*3/uL (0.0-0.0); NUCLEATED RED BLOOD CELL 0.3 % (0.0-0.0); RED BLOOD COUNT 4.51 10*6/uL (4.50-5.90); RED CELL DISTRI WIDTH 15.4 % (0-14.5); WHITE BLOOD COUNT 18.2 10*3/uL (4.8-10.8)
[2018-04-14 06:10] LABS: HEMATOCRIT 45.3 % (42.0-52.0); PLATELET COUNT AUTOMATED 270 10*3/uL (130-400)
[2018-04-14 06:25] LABS: TOTAL CELLS COUNTED 100 #CELLS
[2018-04-14 06:26] LABS: PLATELET SUFFICIENCY NORMAL (NORMAL); TOXIC GRANULATION SLIGHT; VACUOLATION OF NEUTROPHILS SLIGHT
[2018-04-14 08:29] LABS: ABG HCO3 24.3 mmol/l (22-26); ABG O2 SATURATION 91.1 % (95-97); ARTERIAL BLOOD GAS PO2 72.5 mmHg (80-90)
[2018-04-14 08:34] LABS: ABG BASE EXCESS -5.5 mmol/L (-2.0-2.0); ARTERIAL BLOOD GAS PCO2 74.9 mmHg (35-45); ARTERIAL BLOOD GAS PH 7.149 (7.35-7.45)
[2018-04-14 11:49] LABS: ABG HCO3 23.2 mmol/l (22-26); ABG O2 SATURATION 92.3 % (95-97); ARTERIAL BLOOD GAS PO2 73.1 mmHg (80-90)
[2018-04-14 11:52] LABS: ABG BASE EXCESS -8.1 mmol/L (-2.0-2.0)
[2018-04-14 11:53] LABS: ARTERIAL BLOOD GAS PCO2 76.2 mmHg (35-45)
[2018-04-14 11:54] LABS: ARTERIAL BLOOD GAS PH 7.109 (7.35-7.45)
[2018-04-14] MEDS ORDERED: AMERINET CHOICE1 GM IV (14:27)
[2018-04-14] MEDS ORDERED: LEVAQUIN750 M1 PO (14:27)
[2018-04-14] MEDS ORDERED: ZOSYN 4/0.5 44.5 GM IV (14:27)
[2018-04-18 05:05] LABS: ADENOVIRUS Negative (Negative); INFLUENZA A Negative (Negative); INFLUENZA B Negative (Negative); METAPNEUMOVIRUS Negative (Negative); PARAINFLUENZA 1 Negative (Negative); PARAINFLUENZA 2 Negative (Negative); PARAINFLUENZA 3 Negative (Negative); RHINOVIRUS Negative (Negative); RSV A Negative (Negative); RSV B Negative (Negative)
== END 2018-04-14 18:20 | disposition short-term general hospital (02) | DRG 871 ==
LOC: ED 15:32 → EDHOLD 16:18 → ICCU 16:18
PROVIDERS: Emergency Medicine; Internal Medicine Critical Care Medicine; Student in an Organized Health Care Education/Training Program
PROC: 0BH18EZ Insertion of Endotracheal Airway into Trachea, Via Natural or Artificial Opening Endoscopic (ICD-10-PCS; principal; 2018-04-13)
PROC: 5A1935Z Respiratory Ventilation, Less than 24 Consecutive Hours (ICD-10-PCS; principal; 2018-04-13)
PROC: 03HB33Z Insertion of Infusion Device into Right Radial Artery, Percutaneous Approach (ICD-10-PCS; 2018-04-14)
DX: A41.9 Sepsis, unspecified organism (principal); J13 Pneumonia due to Streptococcus pneumoniae; E43 Unspecified severe protein-calorie malnutrition; J96.21 Acute and chronic respiratory failure with hypoxia; J96.22 Acute and chronic respiratory failure with hypercapnia; J86.0 Pyothorax with fistula; R65.21 Severe sepsis with septic shock; I50.22 Chronic systolic (congestive) heart failure; E87.2 Acidosis; F20.0 Paranoid schizophrenia; D80.1 Nonfamilial hypogammaglobulinemia; G93.1 Anoxic brain damage, not elsewhere classified; E87.8 Other disorders of electrolyte and fluid balance, not elsewhere classified; R73.9 Hyperglycemia, unspecified; F32.9 Major depressive disorder, single episode, unspecified; M54.9 Dorsalgia, unspecified; G89.29 Other chronic pain; J84.10 Pulmonary fibrosis, unspecified; G62.9 Polyneuropathy, unspecified; F41.1 Generalized anxiety disorder; I11.0 Hypertensive heart disease with heart failure; E53.8 Deficiency of other specified B group vitamins; F17.210 Nicotine dependence, cigarettes, uncomplicated; E55.9 Vitamin D deficiency, unspecified; R73.03 Prediabetes; M19.90 Unspecified osteoarthritis, unspecified site; K90.0 Celiac disease; J43.9 Emphysema, unspecified; D53.9 Nutritional anemia, unspecified; F11.90 Opioid use, unspecified, uncomplicated; Z79.899 Other long term (current) drug therapy; Z99.81 Dependence on supplemental oxygen; Z88.5 Allergy status to narcotic agent; Z86.718 Personal history of other venous thrombosis and embolism; Z87.01 Personal history of pneumonia (recurrent); Z82.49 Family history of ischemic heart disease and other diseases of the circulatory system; Z79.2 Long term (current) use of antibiotics; Z87.442 Personal history of urinary calculi; Z68.20 Body mass index [BMI] 20.0-20.9, adult